=== PATIENT | male | born 1940 | race Caucasian/White ===

== ENCOUNTER 2018-10-11 22:01 | Inpatient (IN) ==
--- NOTE | 2018-10-11 22:25 | PROVIDER DOCUMENTATION ---
HPI-Respiratory General - General Stated Complaint: SOB Time Seen by Provider: 10/11/18 22:08 Source: patient, EMS Allergies/Adverse Reactions: Patient Allergies Allergy/AdvReac Type Severity Reaction Status Date / Time ibuprofen Allergy SWELLING Verified 01/21/16 12:35 Home Medications: Home Medication List Medication Instructions Recorded Confirmed Last Taken Type Acetaminophen [Tylenol] 650 mg PO Q6H PRN PRN tablet 11/24/17 Unknown Rx Albuterol 2.5MG/Ipratrop 0.5MG 3 ml INH RTQ4H PRN neb 11/24/17 Unknown Rx [Duoneb (A & A)] Benzonatate [Tessalon] 100 mg PO 0900,1500,2100 #15 cap 11/24/17 Unknown Rx Cephalexin [Keflex] 500 mg PO Q12H #12 cap 11/24/17 Unknown Rx Ergocalciferol (Vitamin D2) 50,000 unit PO Q7D #8 cap 11/24/17 Unknown Rx [Vitamin D] Fluticasone 50 Mcg Nasal [place] 2 spray NEAL BID bottle 11/24/17 Unknown Rx [Flonase] Folic Acid 1 mg PO DAILY tablet 11/24/17 Unknown Rx Furosemide [Lasix] 40 mg PO DAILY #90 tab 11/24/17 Unknown Rx Potassium Chloride E.r. [Klor-Con] 20 meq PO DAILY #60 tab 11/24/17 Unknown Rx Tamsulosin [Flomax] 0.4 mg PO DAILY #90 cap 11/24/17 Unknown Rx Review of Systems - Adult - REVIEW OF SYSTEMS - ADULT Constitutional: denies: fever Eyes: reports: no symptoms reported Ears, Nose, Mouth & Throat: reports: no symptoms reported Cardiovascular: denies: chest pain Respiratory: reports: cough, shortness of breath, wheezing Gastrointestinal: reports: no symptoms reported Genitourinary: reports: other (urinary and fecal incontinence for months) Neurological: denies: seizure Psychiatric: reports: no symptoms reported Endocrine: reports: no symptoms reported Hematologic/Lymphatic: reports: no symptoms reported Allergic/Immunologic: reports: no symptoms reported Past History - Adult - PAST MEDICAL HISTORY-ADULT Review of Records: reports: Nursing Assessment Review, Medications Reviewed Major Childhood Illnesses: reports: denies history Cardiovascular: reports: HTN (no meds) Respiratory: reports: denies history Gastrointestinal: reports: denies history Obstetrical/Gynecological: reports: denies history Genitourinary: reports: prostate cancer Musculoskeletal: reports: chronic pain (chronic knee pain) Neurological: reports: denies history Endocrine/Immune: reports: denies history Other Conditions: reports: denies history - PRIOR SURGERIES/PROCEDURES Surgical/Procedure History: reports: joint replacement (TKA), other (hip Sx) - IMMUNIZATION STATUS Childhood Immunizations: See Nurse Assessment Flu Vaccine: See Nurse Assessment - FAMILY HISTORY Family History: reviewed, not pertinent Physical Exam-General - PHYSICAL EXAM-ADULT Initial Vital Signs Reviewed: Yes - CONSTITUTIONAL General Appearance: moderate distress, other (unkempt, covered with urine and feces) - EYES Eyes: PERRL/EOMI - HEAD, EARS, NOSE, MOUTH & THROAT HENMT: normocephalic/atraumatic - NECK Neck: non-tender - RESPIRATORY Respiratory: chest non-tender, wheezing - CARDIOVASCULAR Cardiovascular: tachycardia - GASTROINTESTINAL (ABDOMEN) Abdominal Exam: non tender, soft - LYMPHATIC Lymphatic: no adenopathy - MUSCULOSKELETAL Back Exam: no CVA tenderness, no vertebral tenderness Extremity: other (venouse stasis) Peripheral Pulses: dorsalis-pedis (R): 0, dorsalis-pedis (L): 0 - SKIN Integumentary: pallor, other (dry and peeling skin) - NEUROLOGIC Neurologic: other (lower extremity weakenss) - PSYCHIATRIC Psych/Mental Status: normal mood/affect, oriented x 3 Progress - PLAN OF CARE/RESULTS Progress/Plan/Lab Results: Vital Signs - 8 hr 10/11/18 23:21 10/11/18 23:28 Temperature 97.0 F L 97.0 F L Pulse Rate 128 H Respiratory Rate 20 Blood Pressure 142/92 O2 Sat by Pulse Oximetry 95 Laboratory Results - last 24 hr 10/11/18 10/11/18 10/11/18 23:34 23:35 23:37 WBC RBC Hgb Hct MCV MCH MCHC RDW Std Deviation Plt Count MPV Immature Gran % (Auto) Neut % (Auto) Lymph % (Auto) Park % (Auto) Eos % (Auto) Baso % (Auto) Immature Gran # (Auto) Neut # (Auto) Lymph # (Auto) Park # (Auto) Eos # (Auto) Baso # (Auto) PT INR PTT (Actin FS) Specimen Type ARTERIAL Sample Site R RADIAL pH 7.38 pCO2 43 pO2 77 HCO3 24.8 Base Excess 0.0 Oxyhemoglobin 93.8 L ABG O2 Sat (Calculated) 19.4 ABG O2 Saturation 96.1 ABG Carboxyhemoglobin 1.50 ABG Methemoglobin 0.9 Parveen Test YES A-a O2 Difference 154.0 Total Hemoglobin 14.7 Lactate 2.90 H Liter Flow 5.0 Blood Gas Modality CANNULA FiO2 % 40.0 Sodium 144 Potassium 4.1 Chloride 99 Carbon Dioxide 25 Anion Gap 20 BUN 22 Creatinine 0.8 Estimated GFR/1.73 m2 > 60 BUN/Creatinine Ratio 28 Glucose 138 H Calculated Osmolality 292 Calcium 9.1 Total Bilirubin 0.60 AST 15 ALT 5 L Alkaline Phosphatase 72 Creatine Kinase Troponin T Total Protein 7.0 Albumin 2.9 L Globulin 4.0 Albumin/Globulin Ratio 1.0 Plasma Lactate Urine Source CATH Urine Color RED Urine Clarity VERY CLOUDY A Urine pH 9.0 Ur Specific [place] 1.010 Urine Protein 2+(100 mg/dL) A Urine Ketones 1+(Small) A Urine Blood 4+ Urine Nitrite NEGATIVE Urine Bilirubin NEGATIVE Urine Urobilinogen NORMAL Urine Microscopic RBC TNTC A Urine WBC 2+ A Urine Microscopic WBC 10-20 A Urine Bacteria 3+ Urine Glucose NEGATIVE 10/11/18 10/11/18 10/11/18 23:37 23:37 23:37 WBC 14.80 H RBC 5.38 Hgb 14.6 Hct 46.3 MCV 86.1 MCH 27.1 MCHC 31.5 L RDW Std Deviation 15.0 H Plt Count 178 MPV 8.4 Immature Gran % (Auto) 0.8 H Neut % (Auto) 83.5 H Lymph % (Auto) 8.0 L Park % (Auto) 7.4 Eos % (Auto) 0.1 Baso % (Auto) 0.2 Immature Gran # (Auto) 0.12 H Neut # (Auto) 12.36 H Lymph # (Auto) 1.19 L Park # (Auto) 1.09 H Eos # (Auto) 0.01 Baso # (Auto) 0.03 PT 12.7 INR 0.91 PTT (Actin FS) 27.0 Specimen Type Sample Site pH pCO2 pO2 HCO3 Base Excess Oxyhemoglobin ABG O2 Sat (Calculated) ABG O2 Saturation ABG Carboxyhemoglobin ABG Methemoglobin Parveen Test A-a O2 Difference Total Hemoglobin Lactate Liter Flow Blood Gas Modality FiO2 % Sodium Potassium Chloride Carbon Dioxide Anion Gap BUN Creatinine Estimated GFR/1.73 m2 BUN/Creatinine Ratio Glucose Calculated Osmolality Calcium Total Bilirubin AST ALT Alkaline Phosphatase Creatine Kinase 27 Troponin T Total Protein Albumin Globulin Albumin/Globulin Ratio Plasma Lactate Urine Source Urine Color Urine Clarity Urine pH Ur Specific Baldwin Urine Protein Urine Ketones Urine Blood Urine Nitrite Urine Bilirubin Urine Urobilinogen Urine Microscopic RBC Urine WBC Urine Microscopic WBC Urine Bacteria Urine Glucose 10/11/18 10/11/18 23:37 23:37 WBC RBC Hgb Hct MCV MCH MCHC RDW Std Deviation Plt Count MPV Immature Gran % (Auto) Neut % (Auto) Lymph % (Auto) Park % (Auto) Eos % (Auto) Baso % (Auto) Immature Gran # (Auto) Neut # (Auto) Lymph # (Auto) Park # (Auto) Eos # (Auto) Baso # (Auto) PT INR PTT (Actin FS) Specimen Type Sample Site pH pCO2 pO2 HCO3 Base Excess Oxyhemoglobin ABG O2 Sat (Calculated) ABG O2 Saturation ABG Carboxyhemoglobin ABG Methemoglobin Parveen Test A-a O2 Difference Total Hemoglobin Lactate Liter Flow Blood Gas Modality FiO2 % Sodium Potassium Chloride Carbon Dioxide Anion Gap BUN Creatinine Estimated GFR/1.73 m2 BUN/Creatinine Ratio Glucose Calculated Osmolality Calcium Total Bilirubin AST ALT Alkaline Phosphatase Creatine Kinase Troponin T < 0.010 Total Protein Albumin Globulin Albumin/Globulin Ratio Plasma Lactate 4.1 H Urine Source Urine Color Urine Clarity Urine pH Ur Specific [place] Urine Protein Urine Ketones Urine Blood Urine Nitrite Urine Bilirubin Urine Urobilinogen Urine Microscopic RBC Urine WBC Urine Microscopic WBC Urine Bacteria Urine Glucose Orders Category Date Time Status Cardiac Monitoring DIRECTED Care 10/11/18 22:48 Active IV Insertion ORDERED Care 10/11/18 22:48 Completed Notify MD of + Sepsis Screen NOW Care 10/11/18 22:48 Active Notify Physician As Ordered Care 10/11/18 22:48 Active Saline Loc NOW Care 10/11/18 22:19 Active CHEST-PORTABLE [RAD] Stat Exams 10/11/18 22:19 Taken ABG [RESP] Routine Lab 10/11/18 23:34 Completed BLOOD CULTURE [BLDCUL] Stat Lab 10/11/18 22:19 Ordered BLOOD CULTURE [BLDCUL] Stat Lab 10/11/18 23:38 Ordered CBC WITH DIFF [HEME] Stat Lab 10/11/18 23:37 Completed CK PROFILE [SP CHEM] Stat Lab 10/11/18 23:37 Completed CK PROFILE [SP CHEM] Stat Lab 10/12/18 00:20 Ordered COMPREHENSIVE METABOLIC PANEL [CHEM] Stat Lab 10/11/18 23:37 Completed LACTATE, PLASMA [CHEM] Q3H Lab 10/11/18 23:37 Received PROTIME WITH INR [COAG] Stat Lab 10/11/18 23:37 Received PTT [COAG] Stat Lab 10/11/18 23:37 Received TROPONIN T Stat Lab 10/11/18 23:[address] W/POSS RFLX CULT [URINALYSIS] Stat Lab 10/11/18 23:35 Results 0.9% Sodium Chloride Inj [Ns] 1,000 ml Med 10/11/18 23:39 Active IV 999 mls/hr 0.9% Sodium Chloride Inj [Ns] 1,000 ml Med 10/12/18 00:22 Active IV 999 mls/hr 0.9% Sodium Chloride Inj [Ns] 500 ml Med 10/12/18 00:23 Active IV 999 mls/hr CefTRIAXONE [Rocephin] Med 10/12/18 00:08 Discontinued 1 gm IV NOW ONE Oxygen Device Stat Oth 10/11/18 22:48 Active Pulse Oximetry Stat Oth 10/11/18 22:19 Active Result Diagrams: 10/11/18 23:37 10/11/18 23:37 - CONSULTS/PCP/HOSPITALIST Notification #1 *Consult/PCP/Hospitalist*: Dr Clayton Time Discussed: 00:33 Consult Disposition: Admit Departure - Departure Date of Disposition Decision: 10/12/18 Time of Disposition Decision: 00:31 DIAGNOSIS: Dyspnea, Asthmatic bronchitis Disposition: ADMITTED INPATIENT 09 Certified Medical Emergency: Emergent Condition: Good Referrals and Follow-Ups: None,PCP [Primary Care Provider] - - Critical Care Note This patient required my direct & personal management of CC.: No Attestation - Physician/ PAULETTE Attestation Patient care was provided by Advanced Practice Provider:: No The physician spent face to face time with patient:: Yes Advanced Practice Provider documentation review:: Supervising physician onsite and consulted in the evaluation and care of this patient. The physician did have a face to face encounter with the patient.
[2018-10-11 23:46] LABS: BLOOD TYPE ARTERIAL; HCO3-(ACT) 24.8 mmoll (20.0-26.0); METHB 0.9 % (0.0-1.5); O2(CT) 19.4 mL/dL (15.0-23.0); O2HB 93.8 % (95.0-99.0); PCO2(98.6) 43 mmHg (35-45); PO2(98.6) 77 mmHg (60-100); SAMPLE BLOOD; SAO2 96.1 % (95.0-100.0); THB 14.7 g/dL (11.5-17.4); pH(98.6) 7.38 (7.35-7.45)
[2018-10-11 23:48] LABS: ALLEN TEST YES; MODALITY CANNULA
[2018-10-12] LABS: BASO# 0.03 X1000 (0.0-0.2); BASO% 0.2 % (0.0-0.8); EOS# 0.01 X1000 (0.0-0.7); EOS% 0.1 % (0.0-10.0); HEMATOCRIT 46.3 % (42.0-52.0); HEMOGLOBIN 14.6 g/dL (14.0-18.0); IMM GRAN# 0.12 X1000 (0.0-0.04); IMM GRAN% 0.8 % (0.0-0.5); LYMPH# 1.19 X1000 (1.2-3.4); MCH 27.1 PG (27-31); MCHC 31.5 g/dL (33-37); MCV 86.1 FL (81-99); MONO# 1.09 X1000 (0.11-0.59); MONO% 7.4 % (1.7-9.3); MPV 8.4 FL (7.4-10.4); NEUT# 12.36 X1000 (1.4-6.5); NEUT% 83.5 % (42.2-75.2); PLT 178 X1000 (130-400); RBC 5.38 XMIL (4.7-6.1)
[2018-10-12 00:06] LABS: AGAP 20; ALBUMIN 2.9 g/dL (3.5-5.0); ALKALINE PHOSPHATASE 72 U/L (32-122); BUN 22 mg/dL (8-22); CALCIUM 9.1 mg/dL (8.8-10.2); CHLORIDE 99 mmol/L (98-107); COSMO 292; CREATININE 0.8 mg/dL (0.7-1.2); ESTIMATED GFR > 60; GLUCOSE 138 mg/dL (70-104); GOT 15 U/L (10-34); GPT 5 U/L (10-44); POTASSIUM 4.1 mmol/L (3.5-5.1); SODIUM 144 mmol/L (136-145); TCO2 25 mmol/L (25-35)
[2018-10-12] MEDS ORDERED: ROCEPHIN IV ONE (00:08)
[2018-10-12] MEDS: NS 1,000 ML IV ONE (00:10)
[2018-10-12 00:12] LABS: BILIRUBIN URINE NEGATIVE (NEGATIVE); BLOOD URINE 4+ (NEGATIVE); CLARITY VERY CLOUDY (CLEAR); COLOR RED; GLUCOSE URINE NEGATIVE (NEGATIVE); KETONE URINE 1+(Small) mg/dL (NEGATIVE); LEUKOCYTES URINE 2+ (NEGATIVE); NITRITE URINE NEGATIVE (NEGATIVE); PROTEIN URINE 2+(100 mg/dL) mg/dL (NEGATIVE); UROBILINOGEN URINE NORMAL
[2018-10-12 00:16] LABS: URINE BACTERIA 3+ /HFP; URINE RBC TNTC /HPF (<10)
[2018-10-12 00:17] LABS: URINE SOURCE CATH
[2018-10-12] MEDS ORDERED: NS 1,000 ML IV ONE (00:22)
[2018-10-12] MEDS ORDERED: NS 500 ML IV ONE (00:23)
[2018-10-12 00:34] LABS: INR 0.91; PROTIME 12.7 Seconds (11.0-16.0)
[2018-10-12] MEDS ORDERED: SOLU-MEDROL IV ONE (00:43)
--- NOTE | 2018-10-12 00:49 | ED EKG INTERP ---
This chart was entered by Olga Lomax Scribe, acting as scribe for Gardenia Dias MD. EKG Interpretation - EKG Time of EKG reading by physician:: 00:40 EKG Read and Signed by:: Gardenia Dias EKG Interpretation (*Must complete 3 of following elements*): Abnormal ( pulmonary disease pattern) Rate: 110 Rhythm: sinus tachycardia [place]: normal Attestation - Physician/ PAULETTE Attestation Patient care was provided by Advanced Practice Provider:: No The physician spent face to face time with patient:: Yes Advanced Practice Provider documentation review:: Supervising physician onsite and consulted in the evaluation and care of this patient. The physician did have a face to face encounter with the patient. This chart was documented by the indicated scribe, (Olga Lomax Scribe) and accurately reflects the services I performed and decisions made by me, Gadrenia Dias MD, as attested by the provider's signature.
[2018-10-12] MEDS ORDERED: NS 50 ML ONE (01:04)
[2018-10-12] MEDS: DUONEB (A & A) INH SCH ×7 (02:38→23:45)
[2018-10-12] MEDS ORDERED: NS 500 ML ONE ×2 (02:51→14:58)
[2018-10-12] MEDS ORDERED: ZOFRAN ONE (02:56)
[2018-10-12] MEDS ORDERED: MORPHINE ONE (02:56)
[2018-10-12] MEDS: MORPHINE IV PRN ×2 (02:57→17:35)
[2018-10-12] MEDS: ZOFRAN IV PRN (02:58)
--- NOTE | 2018-10-12 04:08 | EKG Report ---
Test Performed on : 10/12/2018 00:40:52 AM Test Reason : shortness of breath Blood Pressure : / mmHG Vent. Rate : 110 BPM Atrial Rate : 110 BPM P-R Int : 142 ms QRS Dur : 084 ms QT Int : 352 ms P-R-T Axes : 107 -24 055 degrees QTc Int : 476 ms Sinus tachycardia. Pulmonary disease pattern Abnormal ECG When compared with ECG of 18-NOV-2017 06:46, Incomplete right bundle branch block is no longer present Unconfirmed Result
--- NOTE | 2018-10-12 10:08 | Diag Imaging Result Doc PS360 ---
EXAM: CHEST-PORTABLE - 10/11/2018 HISTORY: cough TECHNIQUE: Portable chest COMPARISON: 11/23/2017 FINDINGS: There is chronic elevation of left hemidiaphragm, similar to prior. There is mild atelectasis or infiltrate at left base. The remainder the lungs appear clear. There is no pleural effusion or pneumothorax identified. The left heart border is partially obscured by the elevated hemidiaphragm, heart size appears to be normal. There is apparent old fracture deformity of the proximal left humerus noted. IMPRESSION: Chronic elevation of left hemidiaphragm. Mild atelectasis or infiltrate at left base. Electronically signed by Rick Louis 10/12/2018 10:06 AM
--- NOTE | 2018-10-12 12:19 | HISTORY AND PHYSICAL ---
TIME OF ADMISSION: 0033. CHIEF COMPLAINT: Shortness of breath. HISTORY OF PRESENT ILLNESS: Mr. Vizcaino is an unkempt, 78-year-old, male who was brought into the ED, covered an urine and feces. Prostate cancer, status post radiation in 2008, BPH, hypertension, iron deficiency anemia, seasonal allergies, morbid obesity, urinary tract infections in the past. He states over the last few days, he has had an increase in shortness of breath, a productive cough with sputum production. However, he could not describe it. He also reported his urine had been a red color and it is usually red when he has a urinary tract infection. He also notes that he has had chronic swelling to his lower extremities. He was unsure if the right was always bigger than the left. In the ED, he was found to have a urinary tract infection. He was tachycardic but afebrile. He did have some expiratory wheezes. Chest x- ray shows a possible left lower lobe pneumonia. He did have an elevated white count, as well as an elevated lactate. He was given 3 normal saline boluses. Started on IV antibiotics. We will broaden his spectrum. His lactate has come down. We will admit him to the [facility] and continue with IV antibiotics. PAST MEDICAL HISTORY: 1. Prostate cancer, status post radiation in 2008. 2. BPH. 3. Hypertension. 4. Iron deficiency anemia. 5. Seasonal allergies. 6. Morbid obesity. 7. Chronic bilateral lower extremity edema. PAST SURGICAL HISTORY: 1. Left hip fracture repair in 2013. 2. Right knee replacement. 3. Left shoulder surgery. 4. Left elbow surgery. SOCIAL HISTORY: The patient lives in [place] with his son and knibppwn-sm-epu. There is no family at bedside at this time. The patient states he may have a beer ever once in a blue adame. He is a former smoker, but did not smoke for very long. He states that he does have a cigarette, one on a very rare occasion. No illicit drug use. FAMILY HISTORY: Mother with hypertension, hypertensive heart disease. Father with hypertension, heart disease, and kidney disease. ALLERGIES: Ibuprofen. HOME MEDICATIONS: He reports he only takes an aspirin at home. REVIEW OF SYSTEMS: A 14-point review of systems completely negative except for those mentioned in the HPI. PHYSICAL EXAMINATION: VITAL SIGNS: Current temperature is 97.8 degrees, heart rate 97, respirations 18, blood pressure 119/68, O2 is 98% on 4 L nasal cannula. GENERAL: Mr. Vizcaino is an unkempt appearing, 78-year-old, male who is lying on the stretcher and in no acute distress. He was asleep. He awoke easily. HEENT: Atraumatic, normocephalic. PERRL. NECK: Supple. Trachea midline. CV: S1, S2 appreciated. No murmurs, rubs, or gallops noted. PULMONARY: The patient does have bilateral expiratory wheezes. ABDOMEN: Soft, nontender, nondistended. Positive bowel sounds in 4 quadrants. EXTREMITIES: No clubbing or cyanosis. He does have bilateral lower extremity edema that is greater on the right than the left. However, this appears to be normal for him. He does have discoloration. NEUROLOGIC: Patient is alert and oriented x4. However, it does take him a prolonged period of time before he answers. He does follow commands. Moves all extremities. DIAGNOSTIC DATA: Chest x-ray shows chronic elevation of left hemidiaphragm, mild atelectasis or infiltrate at the left base. EKG showed sinus tachycardia with a pulmonary disease pattern. Blood cultures and urine culture pending. White count 14, hemoglobin and hematocrit 14 and 46, platelet count 178,000. Sodium 144, potassium 4.1, BUN 22, creatinine 0.8. Blood glucose is 138, albumin 2.9. Initial plasma lactate was 4.1. Followup 2.8. This a.m., 1.4. Urine, 3+ bacteria, too numerous to count WBCs, too numerous to count RBCs. ASSESSMENT AND PLAN: 1. Probable left lower lobe pneumonia with asthma exacerbation. We will continue with intravenous antibiotics. Given his elevated lactate, we will broaden his antibiotics. Continue with intravenous hydration. He was given three 3 L boluses in the emergency department. His lactate has come down. He continues to be afebrile. However, he complains of chills. We will continue the bronchodilators and aggressive pulmonary toilet. 2. Probable sepsis. The patient upon admission was tachycardic, elevated white count, positive lactate. Again, we will continue with broad-spectrum antibiotics. 3. Urinary tract infection. Continue intravenous antibiotics. Await culture. 4. Gross hematuria. The patient states his urine turns red with urinary tract infections. We will continue to monitor to see if this clears. 5. Bilateral lower extremity edema with discoloration, right greater than left. This appears to be chronic in nature. 6. Prostate cancer, status post radiation in 2008, with benign prostatic hypertrophy. 7. Iron deficiency anemia. 8. Morbid obesity. 9. Hypertension. Patient does not take any home medications. We will continue to follow. 10. Further recommendations to follow physician evaluation, laboratory data, and diagnostic data. Dictated by RIZWANA Armas for Chauncey Melendez MD cc: Chauncey Melendez MD
[2018-10-12] MEDS ORDERED: VANCOMYCIN IV PER PHARMACY MISC SCH (12:39)
[2018-10-12] MEDS ORDERED: DUONEB (A & A) INH PRN (12:39)
[2018-10-12] MEDS ORDERED: TYLENOL PO PRN (12:39)
[2018-10-12] MEDS ORDERED: SALINE LOCK IV FLUID XX ONE (12:39)
[2018-10-12] MEDS: VANCOMYCIN 2,000 MG in NS 500 ML IV SCH ×2 (15:03→17:35)
[2018-10-12] MEDS: SOLU-MEDROL IV SCH ×2 (15:04→17:35)
[2018-10-12] MEDS ORDERED: CARDIZEM 125/NS 125 MG/125 ML IVPB IV SCH (18:30)
[2018-10-12 20:22] LABS: HEMOGLOBIN 10.9 g/dL (14.0-18.0); MCH 26.9 PG (27-31); MCHC 31.1 g/dL (33-37); MCV 86.4 FL (81-99); MPV 8.5 FL (7.4-10.4); RBC 4.05 XMIL (4.7-6.1); RDW 14.9 % (11.5-14.5); WBC 13.17 X1000 (4.8-10.8)
[2018-10-12 20:42] LABS: AGAP 11; ALBUMIN 2.1 g/dL (3.5-5.0); ALKALINE PHOSPHATASE 61 U/L (32-122); BUN 26 mg/dL (8-22); CALCIUM 8.3 mg/dL (8.8-10.2); CHLORIDE 101 mmol/L (98-107); CK PROFILE 106 U/L (24-204); COSMO 287; CREATININE 0.8 mg/dL (0.7-1.2); ESTIMATED GFR > 60; GLUCOSE 254 mg/dL (70-104); GOT 12 U/L (10-34); GPT < 5 U/L (10-44); MAGNESIUM 1.5 mg/dL (1.5-2.7); POTASSIUM 3.7 mmol/L (3.5-5.1); SODIUM 137 mmol/L (136-145); TCO2 25 mmol/L (25-35); TOTAL PROTEIN 5.6 g/dL (6.3-8.3)
[2018-10-12] MEDS: ZOSYN 3.375 GM in NS 50 ML IV SCH (20:56)
--- NOTE | 2018-10-12 21:42 | HISTORY AND PHYSICAL ---
ADDENDUM: Patient seen and examined by myself. Full note dictated and discussed with nurse practitioner. The patient presented to the hospital with cough, congestion and shortness of breath. He was subsequently diagnosed with left lower lobe pneumonia. While he was in the hospital, he was noted to have heart rates go in the 130s to 160s and was diagnosed with atrial fibrillation RVR as well. We will admit him to the hospital, actually transfer him to the ICU. Place him on Cardizem drip. Continue antibiotics. Further orders as needed. Please see full dictation. cc: Chauncey Melendez MD
[2018-10-12] MEDS: NS 1,000 ML IV SCH (21:47)
[2018-10-13] MEDS: ZOSYN 3.375 GM in NS 50 ML IV SCH ×4 (01:36→20:52)
[2018-10-13] MEDS: SOLU-MEDROL IV SCH ×3 (01:36→17:56)
[2018-10-13] MEDS: DUONEB (A & A) INH SCH ×4 (04:02→15:15)
[2018-10-13 04:07] LABS: BASO# 0.01 X1000 (0.0-0.2); BASO% 0.1 % (0.0-0.8); HEMATOCRIT 34.4 % (42.0-52.0); HEMOGLOBIN 10.8 g/dL (14.0-18.0); IMM GRAN# 0.03 X1000 (0.0-0.04); IMM GRAN% 0.3 % (0.0-0.5); LYMPH# 0.69 X1000 (1.2-3.4); LYMPH% 6.1 % (20.5-51.1); MCH 27.1 PG (27-31); MCHC 31.4 g/dL (33-37); MCV 86.4 FL (81-99); MONO# 0.33 X1000 (0.11-0.59); MONO% 2.9 % (1.7-9.3); MPV 8.8 FL (7.4-10.4); NEUT# 10.27 X1000 (1.4-6.5); NEUT% 90.6 % (42.2-75.2); PLT 125 X1000 (130-400); RBC 3.98 XMIL (4.7-6.1); RDW 14.9 % (11.5-14.5); WBC 11.33 X1000 (4.8-10.8)
[2018-10-13 04:31] LABS: AGAP 12; BUN 29 mg/dL (8-22); CALCIUM 7.9 mg/dL (8.8-10.2); CHLORIDE 104 mmol/L (98-107); COSMO 294; CREATININE 0.8 mg/dL (0.7-1.2); ESTIMATED GFR > 60; GLUCOSE 214 mg/dL (70-104); POTASSIUM 4.1 mmol/L (3.5-5.1); SODIUM 141 mmol/L (136-145); TCO2 25 mmol/L (25-35)
[2018-10-13 04:33] LABS: BANDS 2 % (0-1); LYMPHS 6 % (21-51); SEGS 92 % (42-75)
[2018-10-13 04:35] LABS: OVALOCYTES OCCASIONAL
[2018-10-13] MEDS: NS 1,000 ML IV SCH ×2 (04:52→14:42)
[2018-10-13] MEDS: MORPHINE IV PRN (05:04)
[2018-10-13] MEDS ORDERED: LANOXIN IV ONE (06:50)
[2018-10-13] MEDS: PROTONIX PO SCH (06:58)
--- NOTE | 2018-10-13 07:28 | Diag Imaging Result Doc PS360 ---
EXAM: CHEST-PORTABLE - 10/13/2018 HISTORY: short of breath TECHNIQUE: Portable chest COMPARISON: 08/10/2019 FINDINGS: There is increased opacity at the left base compared to prior. This is suspicious for infiltrate/pneumonia. There is chronic elevation of the left hemidiaphragm. There are no other interval changes identified. IMPRESSION: Increased opacity at left base suspicious for infiltrate/pneumonia. Electronically signed by Rick Louis 10/13/2018 7:25 AM
--- NOTE | 2018-10-13 10:02 | EKG Report ---
Test Performed on : 10/12/2018 4:39:50 PM Test Reason : rhythm change Blood Pressure : / mmHG Vent. Rate : 100 BPM Atrial Rate : 091 BPM P-R Int : 000 ms QRS Dur : 086 ms QT Int : 362 ms P-R-T Axes : 000 -07 026 degrees QTc Int : 466 ms Marked sinus bradycardia. Low voltage QRS Inferior infarct , age undetermined Abnormal ECG When compared with ECG of 12-OCT-2018 16:07, (Unconfirmed) Junctional rhythm. has replaced Atrial fibrillation. Vent. rate has decreased BY [address] no longer depressed in Anterior leads Nonspecific T wave abnormality no longer evident in Lateral leads Confirmed by Pj Chavez MD ([id number]) on 10/22/2018 7:57:40 AM
--- NOTE | 2018-10-13 10:03 | EKG Report ---
Test Performed on : 10/12/2018 4:07:13 PM Test Reason : HR tachy Blood Pressure : / mmHG Vent. Rate : 160 BPM Atrial Rate : 150 BPM P-R Int : 000 ms QRS Dur : 084 ms QT Int : 300 ms P-R-T Axes : 000 -17 045 degrees QTc Int : 489 ms Atrial fibrillation. with rapid ventricular response. Low voltage QRS Nonspecific ST and T wave abnormality Abnormal ECG When compared with ECG of 12-OCT-2018 00:40, (Unconfirmed) Atrial fibrillation. has replaced Sinus rhythm. Confirmed by Pj Chavez MD ([id number]) on 10/22/2018 7:58:03 AM
[2018-10-13] MEDS: LOPRESSOR IV PRN ×2 (11:36→17:15)
[2018-10-13] MEDS: VANCOMYCIN 2,000 MG in NS 500 ML IV SCH (11:36)
[2018-10-13] MEDS: B & O 15A SUPP PR PRN (14:41)
[2018-10-13] MEDS: FLOMAX PO SCH ×2 (14:41→20:52)
--- NOTE | 2018-10-13 17:10 | CARDIOLOGY CONSULTATION ---
DATE: 10/13/2018 INDICATION FOR THE CONSULTATION: New onset atrial fibrillation CHIEF COMPLAINT ON PRESENTATION: Shortness of breath. HISTORY OF PRESENT ILLNESS: Mr. Vizcaino is a 78-year-old gentleman who recently moved to the area from [place], [place]. He has not established with a primary care physician. He is an extremely poor historian. Apparently he has been dealing with some issues of shortness of breath and cough. He does not know of any fevers, nor does he have any issues was significant heart racing, chest pain, or orthopnea. During the course of his hospitalization he was noted to go into presumably new onset atrial fibrillation. He was transferred to the ICU for further treatment with IV rate-controlling medications. PAST MEDICAL HISTORY: Unknown. MEDICATIONS: He is not on any medications. SOCIAL HISTORY: He recently moved to the area. Previous resident of [place], [place]. 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 FAMILY HISTORY: Significant for hypertension. REVIEW OF SYSTEMS: A 10 system review of systems is negative except for those things mentioned in HPI. PHYSICAL EXAMINATION: Vital signs: He is afebrile. His heart rate currently is in the low 100s to 110s, blood pressure 114/64. General: He is an ill-appearing, somewhat disheveled white male, no acute distress. HEENT: Oropharynx is moist. Poor dentition. Eye examination shows pink conjunctivae, white sclerae. Neck: Examination shows no obvious thyromegaly or thyroid tenderness. Cardiovascular: He sounds to be in an irregularly irregular rhythm. He has no murmurs. He has no S3. He has warm and well-perfused lower extremities. Chest: Has coarse breath sounds somewhat diffusely. Mild rales in the left base. No increased work of breathing. Abdomen: Soft, nontender, nondistended. He has no obvious organomegaly. Skin: Warm and dry throughout without any rashes. Neurological: He is moving all extremities well. He has no lateralizing deficits. PERTINENT DATA: His chest x-ray demonstrates an increased opacity at the left base suspicious for an infiltrate. His EKG on the just after midnight shows sinus tachycardia. His subsequent EKG on the at 1607 shows what appears to be rapid atrial fibrillation, rate of 160 beats per minute. His subsequent EKG occurring at 1639 seems to show a possible sinus rhythm. It is somewhat difficult to identify P-waves. Currently his telemetry shows atrial fibrillation. His white count 11.3. His hematocrit is 34. His platelet count is 125,000. He does have a slight bandemia. His sodium is 141, potassium 4.1, BUN 29, creatinine 0.8. His cardiac enzymes are negative. His albumin is 2.1. ASSESSMENT: Mr. Vizcaino is a 78-year-old gentleman with new onset atrial fibrillation that initiated during an episode of pneumonia. PLAN: We will add in metoprolol at 12.5 q.6 hours. We will try to wean him off the diltiazem. He has a CHADS-VASc score of at least 2 based on age alone. In the future he would likely benefit from anticoagulation. He is a very poor historian so I am unclear about his fall risk, that certainly needs to be assessed. We will check an echocardiogram on him tomorrow to try to achieve better rate control. cc: Partha Turner MD
[2018-10-13] MEDS ORDERED: CALMOSEPTINE OINTMENT TOP PRN (17:26)
[2018-10-13] MEDS ORDERED: LOPRESSOR PO ONE (18:13)
[2018-10-13] MEDS ORDERED: NEO-SYNEPHRINE IV ONE (18:45)
[2018-10-13] MEDS ORDERED: NEO-SYNEPHRINE 50 MG in NS 250 ML IV SCH (19:00)
[2018-10-13] MEDS ORDERED: LOPRESSOR PO SCH (20:00)
[2018-10-13] MEDS: LOPRESSOR PO SCH (22:03)
[2018-10-13] MEDS: ATROVENT NEB INH SCH (22:35)
[2018-10-13] MEDS: XOPENEX NEB INH SCH (22:35)
[2018-10-14] MEDS: SOLU-MEDROL IV SCH ×3 (01:08→18:03)
--- NOTE | 2018-10-14 01:08 | PROGRESS NOTE ---
DATE: 10/13/2018 SUBJECTIVE: Patient himself has no complaints. PHYSICAL EXAMINATION: Vital Signs: Temperature 98 degrees, pulse 100s to 150s, BP 70 systolic to 90 systolic. HEENT: Normocephalic. Neck: Supple. Cardiovascular: Irregular rate. Irregular rhythm. Chest: Decreased but equal breath sounds. No wheezing. Abdomen: Soft, nondistended. Extremities: Moves all extremities. ASSESSMENT: 1. Atrial fibrillation with rapid ventricular response. 2. Probable left lower lobe pneumonia. 3. Asthma/chronic obstructive pulmonary disease exacerbation. 4. Urinary tract infection. 5. Sepsis. 6. Severe hypotension. PLAN: We will continue patient in ICU. Continue pressure support, IV fluids. We will use Toprol per Cardiology p.r.n. for his tachycardia and continue to follow. cc: Chauncey Melendez MD
[2018-10-14] MEDS: LOPRESSOR PO SCH ×4 (01:09→20:45)
[2018-10-14] MEDS: NS 1,000 ML IV SCH ×2 (01:36→15:00)
[2018-10-14] MEDS: ZOSYN 3.375 GM in NS 50 ML IV SCH ×4 (01:36→20:45)
[2018-10-14] MEDS: MORPHINE IV PRN ×2 (02:10→05:48)
[2018-10-14] MEDS: XOPENEX NEB INH SCH ×5 (03:30→22:05)
[2018-10-14] MEDS: ATROVENT NEB INH SCH ×5 (03:30→22:04)
[2018-10-14] MEDS: VANCOMYCIN 2,000 MG in NS 500 ML IV SCH (04:58)
[2018-10-14] MEDS: B & O 15A SUPP PR PRN (05:19)
[2018-10-14] MEDS: PROTONIX PO SCH (07:10)
[2018-10-14] MEDS: FLOMAX PO SCH ×2 (09:27→20:45)
[2018-10-14] MEDS: LOPRESSOR IV PRN (14:59)
[2018-10-14] MEDS ORDERED: LOPRESSOR PO ONE (18:44)
[2018-10-15] MEDS: NS 1,000 ML IV SCH ×2 (00:52→14:25)
--- NOTE | 2018-10-15 01:29 | PROGRESS NOTE ---
DATE: 10/14/2018 SUBJECTIVE: Patient notes overall he is feeling better. Denies any chest pain or palpitations. Denies any fevers or chills. PHYSICAL EXAMINATION: Vital Signs: Temperature 97.9 degrees, pulse 120, respiratory 22, BP 121/81. General: He is eating breakfast with assistance. He is in no current respiratory distress. HEENT: Normocephalic. Neck: Supple. Cardiovascular: Irregular rate. Irregular rhythm. Poor rate control. Chest: Positive rhonchi. No crackles. No wheezing. Abdomen: Soft, nondistended. Extremities: Moves all extremities. No edema. Neurologic: No focal neurological changes. Skin: He has multiple healing bruises of various staging. ASSESSMENT: 1. Atrial fibrillation. 2. Hypotension. 3. Sepsis. 4. Gram-negative chris urinary tract infection causing the sepsis. 5. Bilateral lower extremity edema. 6. History of prostate cancer with radiation in 2008. 7. Iron deficiency anemia. 8. Morbid obesity. 9. Hypertension. PLAN: We will continue patient in the hospital ICU due to his hypotension and elevated heart rate. Cardiology thankfully has been involved. We will continue to follow. We will place the patient on metoprolol, hopefully can wean off of Levophed. Continue antibiotics. Continue supportive care. Greater than 35 minutes was spent in total care. cc: Chauncey Melendez MD
[2018-10-15] MEDS: VANCOMYCIN 2,000 MG in NS 500 ML IV SCH (02:33)
[2018-10-15] MEDS: ZOSYN 3.375 GM in NS 50 ML IV SCH ×4 (02:41→19:45)
[2018-10-15] MEDS: SOLU-MEDROL IV SCH ×3 (02:41→19:45)
[2018-10-15] MEDS: LOPRESSOR PO SCH ×4 (02:42→19:45)
[2018-10-15] MEDS: ATROVENT NEB INH SCH ×4 (03:14→21:39)
[2018-10-15] MEDS: XOPENEX NEB INH SCH ×4 (03:14→21:39)
[2018-10-15] MEDS: PROTONIX PO SCH (06:32)
[2018-10-15] MEDS ORDERED: VANCOMYCIN 2,000 MG in NS 500 ML IV SCH (09:00)
[2018-10-15] MEDS: FLOMAX PO SCH ×3 (09:22→20:40)
[2018-10-15] MEDS: LOPRESSOR IV PRN (17:00)
--- NOTE | 2018-10-15 19:08 | PROGRESS NOTE ---
DATE: 10/15/2018 SUBJECTIVE: Patient notes that he is feeling better. States that he is hungry. States that his hamburger and fries were not enough yesterday for lunch and he would like to have more today. Denies any chest pain, palpitations. Denies any fevers. PHYSICAL EXAM: Vital Signs: Temperature 98, pulse 110, respiratory 20, BP 111/73. General: Patient is awake, alert. He is currently in no respiratory distress. He does answer questions. He attempts to follow commands. HEENT: Normocephalic. Neck: Supple. Cardiovascular: Irregular rate, irregular rhythm. Chest: Decreased breath sounds bilaterally. No current crackles, no wheezing. Abdomen: Soft, nondistended. Extremities: Moves all extremities. Neurologic: No changes. ASSESSMENT: 1. Staph epi bacteremia, resists penicillin. Sensitive to Levaquin and clindamycin. 2. Left lower lobe pneumonia. 3. Asthma exacerbation. 4. Generalized adult failure to thrive. 5. Bilateral lower extremity edema. 6. Multiple bruising. 7. History of prostate cancer, status post radiation 2009. PLAN: We will continue patient in the hospital, continue antibiotics. We will stop vancomycin at this point as the Staph epi is sensitive to Zosyn. We will continue nutritional support and will follow. cc: Chauncey Melendez MD
[2018-10-15] MEDS: LEVAQUIN 500 MG/D5W 500 MG/100 ML IVPB IV SCH (19:45)
[2018-10-16] MEDS: MORPHINE IV PRN ×2 (01:16→12:46)
[2018-10-16] MEDS: SOLU-MEDROL IV SCH ×2 (01:16→08:07)
[2018-10-16] MEDS: NS 1,000 ML IV SCH ×3 (01:19→15:30)
[2018-10-16] MEDS: ZOSYN 3.375 GM in NS 50 ML IV SCH ×4 (01:20→20:52)
[2018-10-16] MEDS: ATROVENT NEB INH SCH ×4 (03:15→21:13)
[2018-10-16] MEDS: XOPENEX NEB INH SCH ×4 (03:16→21:13)
[2018-10-16] MEDS: LOPRESSOR PO SCH ×4 (05:10→20:52)
[2018-10-16] MEDS: PROTONIX PO SCH (06:15)
[2018-10-16] MEDS: FLOMAX PO SCH ×2 (08:07→20:51)
[2018-10-16] MEDS: HUMALOG (PARKWAY) SUBQ SCH ×3 (10:45→20:52)
--- NOTE | 2018-10-16 11:06 | ECHO REPORT ---
ORDER DATE: 10/14/2018 ECHOCARDIOGRAM: MEASUREMENTS: None. SUMMARY: 1. Very difficult study for interpretation due to very limited acoustic window quality. 2. Aortic valve is without gross structural abnormality. Peak gradient across the aortic valve was less than 10 mmHg, thus excluding significant aortic stenosis. Moderate mitral annular calcification is demonstrated. Tricuspid valve is without gross structural abnormality. There is trace mitral regurgitation and trace tricuspid regurgitation. The estimated systolic PA pressure by Doppler is 35 mmHg. Pulmonic valve is not well demonstrated. The aortic root is grossly normal in size. 3. Grossly normal left ventricular dimensions suggested. Estimated left ventricular ejection fraction appears to be at least 70%. No obvious wall motion abnormality can be appreciated. Left atrium, right atrium, right ventricle grossly normal in size. 4. No pericardial effusion. 5. Appearance of inferior vena cava suggests elevated central venous pressure. cc: MD Patrha Sanabria MD
[2018-10-16] MEDS: LEVAQUIN 500 MG/D5W 500 MG/100 ML IVPB IV SCH (20:51)
[2018-10-17] MEDS: ZOSYN 3.375 GM in NS 50 ML IV SCH ×4 (02:20→21:27)
[2018-10-17] MEDS: LOPRESSOR PO SCH ×4 (02:20→21:26)
[2018-10-17] MEDS: XOPENEX NEB INH SCH ×4 (03:41→21:25)
[2018-10-17] MEDS: ATROVENT NEB INH SCH ×4 (03:41→21:25)
[2018-10-17] MEDS: SOLU-MEDROL IV SCH (06:48)
[2018-10-17] MEDS: PROTONIX PO SCH (06:49)
[2018-10-17] MEDS: NS 1,000 ML IV SCH ×2 (06:49→16:44)
[2018-10-17] MEDS: HUMALOG (PARKWAY) SUBQ SCH ×4 (06:49→21:27)
--- NOTE | 2018-10-17 07:59 | PROGRESS NOTE ---
DATE: 10/17/2018 SUBJECTIVE: Patient seen and examined by myself on the . He notes that he is feeling better. He is hungry. Denies any chest pain, palpitations. He has not been out of bed yet. PHYSICAL EXAM: 0Vital Signs: Temperature 97.8, pulse 100, respiratory 22, BP 134/75. General: Patient is awake, alert. He is in no current respiratory distress. Overall he is feeling better. HEENT: Normocephalic. Neck: Supple. CARDIOVASCULAR: Irregular rate, irregular rhythm, although better rate controlled. Chest: Clear. Nonlabored, no crackles. Abdomen: Soft, nondistended, nontender. Extremities: Moves all extremities. ASSESSMENT: 1. Left lower lobe pneumonia. 2. Sepsis resolved. 3. Bacteremia with Moraxella. 4. Urinary tract infection with Morganella. 5. Acute bronchitis improved. PLAN: We will continue patient in the hospital ICU until his rate is better controlled. We will continue to follow. Continue antibiotics. Oxygen. We will get physical therapy involved. Further orders as needed. cc: Chauncey Melendez MD
[2018-10-17] MEDS: FLOMAX PO SCH ×2 (08:49→21:26)
[2018-10-17] MEDS: MORPHINE IV PRN ×2 (12:18→22:04)
--- NOTE | 2018-10-17 17:58 | PROGRESS NOTE ---
DATE: 10/17/2018 SUBJECTIVE: Patient has no major complaints. OBJECTIVE: Vital signs: Blood pressure is 115/73, heart rate 113, respiratory rate 22, temperature 97.6 degrees, 96% on 2 L. Cardiovascular: Regular rate and rhythm. Pulmonary: Bilateral breath sounds. Clear to auscultation. GI: Soft, nontender, nondistended. Bowel sounds are positive. He looks like he is working a little harder to breathe. Unclear if he is that far off baseline he is though. LABORATORY DATA: I do not have any white count today. Sugar was 281. ASSESSMENT: 1. Left lower lobe pneumonia. We will continue antibiotics and breathing treatments. Presumably associated with Moraxella and currently on Levaquin. Positive blood culture with Moraxella, so I am going to repeat blood cultures just to make sure they are negative. He does not need anymore vancomycin because it was a coagulase-negative Staph which is felt to be likely related to a skin contaminant, Moraxella probably less so. 2. Morganella urinary tract infection. Also sensitive to Levaquin. I guess there are no strict sensitivities, but presumably it is sensitive fluoroquinolones. DISPOSITION: I think he is doing better. We need to get PT, OT involved. He is a [facility] case. He does not want family involved and he will likely need rehab. Continue to follow. cc: Oleksandr Blackman MD [facility]
[2018-10-17] MEDS: LEVAQUIN 500 MG/D5W 500 MG/100 ML IVPB IV SCH (20:13)
[2018-10-18] MEDS: LOPRESSOR PO SCH ×4 (01:19→22:28)
[2018-10-18] MEDS: ZOSYN 3.375 GM in NS 50 ML IV SCH ×4 (01:19→20:09)
[2018-10-18] MEDS: MORPHINE IV PRN ×3 (01:19→22:33)
[2018-10-18] MEDS: ATROVENT NEB INH SCH ×4 (03:20→21:50)
[2018-10-18] MEDS: XOPENEX NEB INH SCH ×4 (03:20→21:50)
[2018-10-18] MEDS ORDERED: SOLU-MEDROL IV SCH (06:00)
[2018-10-18] MEDS: HUMALOG (PARKWAY) SUBQ SCH ×4 (06:54→20:09)
[2018-10-18] MEDS: PROTONIX PO SCH (06:55)
[2018-10-18 07:16] LABS: AGAP 9; BUN 27 mg/dL (8-22); CHLORIDE 108 mmol/L (98-107); COSMO 284; GLUCOSE 98 mg/dL (70-104); POTASSIUM 4.8 mmol/L (3.5-5.1); SODIUM 140 mmol/L (136-145); TCO2 23 mmol/L (25-35)
[2018-10-18 07:17] LABS: CREATININE 0.7 mg/dL (0.7-1.2); MAGNESIUM 1.7 mg/dL (1.5-2.7); PHOSPHORUS 2.1 mg/dL (2.7-4.5)
[2018-10-18 08:33] LABS: BASO% 1.1 % (0.0-0.8); EOS# 0.37 X1000 (0.0-0.7); HEMATOCRIT 36.1 % (42.0-52.0); HEMOGLOBIN 11.5 g/dL (14.0-18.0); IMM GRAN# 1.17 X1000 (0.0-0.04); IMM GRAN% 6.5 % (0.0-0.5); LYMPH# 2.78 X1000 (1.2-3.4); LYMPH% 15.4 % (20.5-51.1); MCH 27.6 PG (27-31); MCHC 31.9 g/dL (33-37); MCV 86.6 FL (81-99); MONO# 1.19 X1000 (0.11-0.59); MONO% 6.6 % (1.7-9.3); MPV 9.4 FL (7.4-10.4); NEUT# 12.36 X1000 (1.4-6.5); NEUT% 68.4 % (42.2-75.2); PLT 223 X1000 (130-400); RBC 4.17 XMIL (4.7-6.1); RDW 15.7 % (11.5-14.5); WBC 18.07 X1000 (4.8-10.8)
[2018-10-18] MEDS: FLOMAX PO SCH (08:42)
[2018-10-18] MEDS: NS 1,000 ML IV SCH ×2 (08:42→22:29)
[2018-10-18 09:53] LABS: BANDS 5 % (0-1); LYMPHS 17 % (21-51); MONO 7 % (1-9); SEGS 71 % (42-75)
--- NOTE | 2018-10-18 14:45 | PROGRESS NOTE ---
DATE: 10/18/2018 SUBJECTIVE: Patient has no major complaints. OBJECTIVE: Vital signs: Blood pressure 99/70, heart rate of 102, respiratory rate of 22, temperature 97 degrees, 96% on 2 L. Cardiovascular: Regular rate and rhythm. Pulmonary: Bilateral breath sounds clear to auscultation. GI: Soft, nontender, nondistended. Bowel sounds are positive. LABORATORY DATA: White count is 18, hemoglobin and hematocrit 11 and 36, platelets 223,000. Basic was normal except for phosphorus of 2.1. PROBLEM LIST: 1. Left lower lobe pneumonia. He is on breathing treatments. Positive blood culture for Moraxella. Therefore, I feel like this is related to that. 1. We will continue empiric antibiotics and follow. 2. Morganella urinary tract infection. He is also on antibiotics from that standpoint. He is on Zosyn and Moraxella is sensitive to penicillin. 3. Disposition. We are looking at PT and OT. 4. Atrial fibrillation with rapid ventricular response. He is still not completely controlled, but overall his heart rate is controlled. We will continue to follow. cc: Oleksandr Blackman MD [facility]
[2018-10-18] MEDS: LOPRESSOR IV PRN (18:35)
[2018-10-18] MEDS: LEVAQUIN 500 MG/D5W 500 MG/100 ML IVPB IV SCH (20:09)
[2018-10-18] MEDS ORDERED: ROBITUSSIN PO PRN (23:01)
[2018-10-18] MEDS ORDERED: ROBITUSSIN-DM PO PRN (23:16)
[2018-10-19] MEDS: LOPRESSOR PO SCH ×4 (03:01→21:12)
[2018-10-19] MEDS: ZOSYN 3.375 GM in NS 50 ML IV SCH ×4 (03:01→21:11)
[2018-10-19] MEDS: XOPENEX NEB INH SCH ×4 (03:40→22:30)
[2018-10-19] MEDS: ATROVENT NEB INH SCH ×4 (03:40→22:30)
[2018-10-19] MEDS: PROTONIX PO SCH (06:34)
[2018-10-19] MEDS: HUMALOG (PARKWAY) SUBQ SCH ×4 (06:34→21:11)
[2018-10-19] MEDS: FLOMAX PO SCH (08:27)
[2018-10-19] MEDS: MORPHINE IV PRN ×2 (09:33→16:44)
[2018-10-19] MEDS: ZOFRAN IV PRN ×2 (09:34→16:45)
[2018-10-19 09:52] LABS: BASO# 0.05 X1000 (0.0-0.2); BASO% 0.3 % (0.0-0.8); EOS# 0.32 X1000 (0.0-0.7); EOS% 2.2 % (0.0-10.0); HEMATOCRIT 32.6 % (42.0-52.0); IMM GRAN# 0.72 X1000 (0.0-0.04); LYMPH# 1.97 X1000 (1.2-3.4); LYMPH% 13.6 % (20.5-51.1); MCH 26.8 PG (27-31); MCHC 30.7 g/dL (33-37); MCV 87.4 FL (81-99); MONO% 6.9 % (1.7-9.3); NEUT# 10.47 X1000 (1.4-6.5); PLT 220 X1000 (130-400); RBC 3.73 XMIL (4.7-6.1); RDW 16.5 % (11.5-14.5); WBC 14.53 X1000 (4.8-10.8)
[2018-10-19 10:03] LABS: AGAP 7; BUN 29 mg/dL (8-22); CALCIUM 7.9 mg/dL (8.8-10.2); CHLORIDE 107 mmol/L (98-107); COSMO 287; CREATININE 0.6 mg/dL (0.7-1.2); ESTIMATED GFR > 60; GLUCOSE 97 mg/dL (70-104); MAGNESIUM 1.7 mg/dL (1.5-2.7); POTASSIUM 4.7 mmol/L (3.5-5.1); SODIUM 141 mmol/L (136-145); TCO2 27 mmol/L (25-35)
[2018-10-19 10:04] LABS: HEMOGLOBIN A1C 5.8 % (4.8-6.0)
[2018-10-19] MEDS: NS 1,000 ML IV SCH ×2 (14:22→14:27)
[2018-10-19] MEDS ORDERED: ALBUMIN 25% IV ONE (17:45)
--- NOTE | 2018-10-19 18:00 | PROGRESS NOTE ---
DATE: 10/19/2018 SUBJECTIVE: Patient has no major complaints. OBJECTIVE: Vital Signs: Blood pressure is 86/50, heart rate of 88, respiratory rate of 17, temperature 93, 95% on 2 L. Cardiovascular: Regular rate and rhythm. Pulmonary: Bilateral breath sounds, clear to auscultation. GI: Was soft, nontender, nondistended. Bowel sounds are positive. Extremities: Have no clubbing or cyanosis. Lymphatic exam: No peripheral edema. Neurological: Nonfocal. Skin: He does have pitting edema just throughout upper extremities, abdomen significant. LABORATORY DATA: White count 14, hemoglobin and hematocrit 10 and 32, platelets 220. Basic was normal. PROBLEM LIST: 1. Left lower lobe pneumonia. He is on Zosyn and Levaquin, day 7 and day 4. Seems to be doing okay. 2. Atrial fibrillation with rapid ventricular rate. He seems to be doing okay from that standpoint. We will continue to follow closely. 3. Anasarca. We will continue. I am going to initiate some diuretics and stop blood pressure medications. 4. Severe deconditioning. We will continue to monitor. He is still somewhat weak and follow closely. Anticipate discharge soon. He will likely need rehab. We will continue to follow. cc: Oleksandr Blackman MD
[2018-10-19] MEDS: LASIX IV SCH (18:26)
[2018-10-19] MEDS: LEVAQUIN PO SCH (18:26)
[2018-10-20] MEDS: ZOSYN 3.375 GM in NS 50 ML IV SCH ×3 (02:29→14:25)
[2018-10-20] MEDS: LOPRESSOR PO SCH ×4 (02:30→21:40)
[2018-10-20] MEDS: XOPENEX NEB INH SCH ×4 (04:20→22:41)
[2018-10-20] MEDS: ATROVENT NEB INH SCH ×4 (04:20→22:41)
[2018-10-20] MEDS: LASIX IV SCH ×2 (05:44→17:50)
[2018-10-20] MEDS: MORPHINE IV PRN (05:44)
[2018-10-20] MEDS: PROTONIX PO SCH (06:26)
[2018-10-20] MEDS: HUMALOG (PARKWAY) SUBQ SCH ×4 (06:26→21:43)
[2018-10-20 06:55] LABS: BASO# 0.02 X1000 (0.0-0.2); BASO% 0.2 % (0.0-0.8); EOS# 0.28 X1000 (0.0-0.7); EOS% 2.6 % (0.0-10.0); HEMOGLOBIN 9.4 g/dL (14.0-18.0); IMM GRAN# 0.41 X1000 (0.0-0.04); IMM GRAN% 3.8 % (0.0-0.5); LYMPH# 1.32 X1000 (1.2-3.4); LYMPH% 12.3 % (20.5-51.1); MCHC 30.3 g/dL (33-37); MCV 89.1 FL (81-99); MONO# 0.76 X1000 (0.11-0.59); MONO% 7.1 % (1.7-9.3); MPV 9.1 FL (7.4-10.4); NEUT# 7.92 X1000 (1.4-6.5); PLT 191 X1000 (130-400); RBC 3.48 XMIL (4.7-6.1); RDW 16.7 % (11.5-14.5); WBC 10.71 X1000 (4.8-10.8)
[2018-10-20 07:47] LABS: AGAP 7; BUN 33 mg/dL (8-22); CALCIUM 8.2 mg/dL (8.8-10.2); CHLORIDE 102 mmol/L (98-107); COSMO 288; CREATININE 0.7 mg/dL (0.7-1.2); ESTIMATED GFR > 60; GLUCOSE 154 mg/dL (70-104); POTASSIUM 4.7 mmol/L (3.5-5.1); SODIUM 139 mmol/L (136-145); TCO2 30 mmol/L (25-35)
[2018-10-20] MEDS: LEVAQUIN PO SCH (09:11)
[2018-10-20] MEDS: FLOMAX PO SCH (09:11)
--- NOTE | 2018-10-20 17:38 | PROGRESS NOTE ---
DATE: 10/20/2018 SUBJECTIVE: He seems to be breathing a little bit better. No major complaints. OBJECTIVE: Vital Signs: Blood pressure is 101/45, heart rate 93, respiratory rate 16, temperature 98.5. Cardiovascular: Regular rate and rhythm. Pulmonary: Bilateral breath sounds, clear to auscultation. GI: Was soft, nontender, nondistended. Bowel sounds are positive. LABS: White count 10, hemoglobin and hematocrit 9 and 31, platelets 191. Basic was normal. PROBLEM LIST: 1. Left lower lobe pneumonia. He is on Zosyn and Levaquin and seems to be better. I think we could probably start stepping him down a bit. 2. Atrial fibrillation seems to be overall rate controlled. He is on Lopressor and seems to be doing better from that standpoint. 3. Anasarca. Volume overload. We will continue diuresis and stop medications. 4. Deconditioning. We will continue with physical therapy and occupational therapy and see how he does. DISPOSITION: Pending his clinical status. We are looking at rehab options for him. Hopefully, the next several days. cc: Oleksandr Blackman MD
[2018-10-21] MEDS: LOPRESSOR PO SCH ×4 (01:06→20:57)
[2018-10-21] MEDS: XOPENEX NEB INH SCH ×4 (03:38→22:47)
[2018-10-21] MEDS: ATROVENT NEB INH SCH ×4 (03:38→22:47)
[2018-10-21] MEDS: PROTONIX PO SCH (06:01)
[2018-10-21] MEDS: LASIX IV SCH ×2 (06:01→17:38)
[2018-10-21] MEDS: HUMALOG (PARKWAY) SUBQ SCH ×4 (06:43→21:09)
[2018-10-21 09:01] LABS: BASO# 0.01 X1000 (0.0-0.2); BASO% 0.1 % (0.0-0.8); EOS# 0.24 X1000 (0.0-0.7); HEMATOCRIT 29.8 % (42.0-52.0); HEMOGLOBIN 9.4 g/dL (14.0-18.0); IMM GRAN# 0.24 X1000 (0.0-0.04); LYMPH% 13.5 % (20.5-51.1); MCH 27.4 PG (27-31); MCHC 31.5 g/dL (33-37); MCV 86.9 FL (81-99); MONO% 5.9 % (1.7-9.3); MPV 8.7 FL (7.4-10.4); NEUT# 9.06 X1000 (1.4-6.5); NEUT% 76.5 % (42.2-75.2); PLT 194 X1000 (130-400); RBC 3.43 XMIL (4.7-6.1); RDW 16.6 % (11.5-14.5); WBC 11.85 X1000 (4.8-10.8)
[2018-10-21 09:13] LABS: AGAP 6; BUN 28 mg/dL (8-22); CALCIUM 7.7 mg/dL (8.8-10.2); CHLORIDE 95 mmol/L (98-107); COSMO 281; CREATININE 0.6 mg/dL (0.7-1.2); ESTIMATED GFR > 60; GLUCOSE 135 mg/dL (70-104); POTASSIUM 3.7 mmol/L (3.5-5.1); SODIUM 137 mmol/L (136-145); TCO2 35 mmol/L (25-35)
[2018-10-21] MEDS: LEVAQUIN PO SCH (09:42)
[2018-10-21] MEDS: FLOMAX PO SCH (09:42)
[2018-10-21] MEDS ORDERED: LEVAQUIN PO ONE (16:42)
--- NOTE | 2018-10-21 19:15 | PROGRESS NOTE ---
DATE: 10/21/2018 SUBJECTIVE: Patient has no complaints. OBJECTIVE: Blood pressure 118/64, heart rate of 95, respiratory rate of 18, temperature was 97.6 degrees, 95% on 2 L.Cardiovascular: Regular rate and rhythm. Pulmonary: Bilateral breath sounds, clear to auscultation. GI: Soft, nontender, nondistended. Bowel sounds are positive. LABORATORY DATA: White count 11, hemoglobin and hematocrit 9 and 29, platelets of 194,000, BUN and creatinine 28.6. 1. Patient left lower lobe pneumonia. He is on Zosyn and Levaquin, his white count had been better, I think we stopped antibiotics yesterday so we will continue to follow. 2. Atrial fibrillation which is rate controlled on Lopressor. 3. Anasarca. We will continue diuretics and follow. Encourage protein improvement. 4. Sacral decubitus. We will continue wound care and follow. DISPOSITION: Pending clinical status. Hopefully can get to rehab at beginning of the week.. cc: Oleksandr Blackman MD [facility]
[2018-10-22] MEDS: LOPRESSOR PO SCH ×4 (01:40→21:34)
[2018-10-22] MEDS: XOPENEX NEB INH SCH ×4 (03:37→22:16)
[2018-10-22] MEDS: ATROVENT NEB INH SCH ×4 (03:37→22:16)
[2018-10-22] MEDS: PROTONIX PO SCH (06:05)
[2018-10-22] MEDS: HUMALOG (PARKWAY) SUBQ SCH ×4 (06:05→21:34)
[2018-10-22] MEDS: LASIX IV SCH ×2 (06:05→17:30)
[2018-10-22 08:19] LABS: BASO# 0.01 X1000 (0.0-0.2); BASO% 0.1 % (0.0-0.8); EOS# 0.24 X1000 (0.0-0.7); EOS% 2.1 % (0.0-10.0); IMM GRAN# 0.11 X1000 (0.0-0.04); LYMPH# 1.58 X1000 (1.2-3.4); LYMPH% 13.8 % (20.5-51.1); MCH 27.2 PG (27-31); MCHC 31.3 g/dL (33-37); MCV 87.2 FL (81-99); MONO% 6.1 % (1.7-9.3); MPV 8.7 FL (7.4-10.4); NEUT# 8.79 X1000 (1.4-6.5); NEUT% 76.9 % (42.2-75.2); PLT 199 X1000 (130-400); RBC 3.67 XMIL (4.7-6.1); RDW 16.8 % (11.5-14.5); WBC 11.43 X1000 (4.8-10.8)
[2018-10-22 08:38] LABS: AGAP 6; BUN 27 mg/dL (8-22); CHLORIDE 95 mmol/L (98-107); COSMO 284; CREATININE 0.7 mg/dL (0.7-1.2); ESTIMATED GFR > 60; GLUCOSE 120 mg/dL (70-104); POTASSIUM 3.8 mmol/L (3.5-5.1); SODIUM 139 mmol/L (136-145); TCO2 38 mmol/L (25-35)
[2018-10-22] MEDS: LEVAQUIN PO SCH (11:07)
[2018-10-22] MEDS: FLOMAX PO SCH (11:07)
--- NOTE | 2018-10-22 19:49 | PROGRESS NOTE ---
DATE: 10/22/2018 SUBJECTIVE: Patient has no focal complaints. OBJECTIVE: Vital Signs: 118/68, heart rate of 88, respiratory rate 18, temperature 98.1, 98% on 1.5 L. Cardiovascular: Regular rate and rhythm. Pulmonary: Bilateral breath sounds. Clear to auscultation. GI: Soft, nontender, nondistended. Bowel sounds are positive. Extremities: He has significant onychomycosis with hyperkeratinization of his nails, especially on his first greater toes. LABORATORY DATA: White count 11, hemoglobin and hematocrit 10 and 32. Basic was normal. PROBLEM LIST: 1. Left lower lobe pneumonia. He is on Levaquin and Zosyn which, at this point, he is on Levaquin alone. I bumped up the dose a little bit because his white count had come up, but seems to be pretty stable. 2. Moraxella bacteremia. He has had Zosyn and Levaquin and repeat blood cultures are clear from the . He had about 7 days of treatment prior to that. There was no evidence of bacteremia. 3. Atrial fibrillation, rate controlled on Lopressor. 4. Anasarca. We will continue diuresis. 5. Sacral decubitus. Continue wound care. 6. Morganella urinary tract infection. Seems to be stable on current medications. DISPOSITION: We are looking at rehab. I anticipate earlier next week. We will work on trying to get his toenails kind of trimmed down prior to discharge. cc: Oleksandr Blackman MD
[2018-10-22] MEDS ORDERED: CARDIZEM IV ONE (19:53)
[2018-10-22] MEDS: ZOFRAN IV PRN (20:02)
[2018-10-23] MEDS: LOPRESSOR PO SCH ×4 (02:23→21:13)
[2018-10-23] MEDS: ATROVENT NEB INH SCH ×4 (03:44→21:18)
[2018-10-23] MEDS: XOPENEX NEB INH SCH ×4 (03:44→21:18)
[2018-10-23] MEDS: HUMALOG (PARKWAY) SUBQ SCH ×4 (06:14→21:13)
[2018-10-23] MEDS: LASIX IV SCH ×2 (06:18→17:22)
[2018-10-23] MEDS: PROTONIX PO SCH (06:18)
[2018-10-23 07:23] LABS: BASO# 0.01 X1000 (0.0-0.2); BASO% 0.1 % (0.0-0.8); EOS# 0.17 X1000 (0.0-0.7); EOS% 1.8 % (0.0-10.0); HEMATOCRIT 29.8 % (42.0-52.0); HEMOGLOBIN 9.5 g/dL (14.0-18.0); IMM GRAN# 0.07 X1000 (0.0-0.04); IMM GRAN% 0.8 % (0.0-0.5); LYMPH# 1.23 X1000 (1.2-3.4); LYMPH% 13.3 % (20.5-51.1); MCH 27.6 PG (27-31); MCHC 31.9 g/dL (33-37); MCV 86.6 FL (81-99); MONO# 0.55 X1000 (0.11-0.59); MONO% 5.9 % (1.7-9.3); MPV 8.4 FL (7.4-10.4); NEUT# 7.23 X1000 (1.4-6.5); NEUT% 78.1 % (42.2-75.2); PLT 193 X1000 (130-400); RBC 3.44 XMIL (4.7-6.1); RDW 16.8 % (11.5-14.5); WBC 9.26 X1000 (4.8-10.8)
[2018-10-23 07:32] LABS: AGAP 8; BUN 24 mg/dL (8-22); CALCIUM 7.9 mg/dL (8.8-10.2); CHLORIDE 93 mmol/L (98-107); COSMO 281; CREATININE 0.7 mg/dL (0.7-1.2); ESTIMATED GFR > 60; GLUCOSE 115 mg/dL (70-104); MAGNESIUM 1.8 mg/dL (1.5-2.7); SODIUM 138 mmol/L (136-145); TCO2 37 mmol/L (25-35)
[2018-10-23] MEDS: FLOMAX PO SCH (10:38)
[2018-10-23] MEDS: LEVAQUIN PO SCH (10:39)
[2018-10-23] MEDS: MORPHINE IV PRN (10:50)
--- NOTE | 2018-10-23 18:37 | PROGRESS NOTE ---
DATE: 10/23/2018 SUBJECTIVE: Patient has no focal complaints. OBJECTIVE: His blood pressure is 105/54, heart rate of 98, respiratory rate of 18, temperature 97.9 degrees, 96% on 2 L.Cardiovascular: Regular rate and rhythm. Pulmonary: Bilateral breath sounds clear to auscultation. GI: Soft, nontender, nondistended. Bowel sounds are positive. Extremities: He has got brawny kind of tree bark appearance on his legs with severe onychomycosis. We have trimmed down his nails a bit. PROBLEM LIST: 1. Left lower lobe pneumonia. He is on Levaquin and his white count has stabilized. I am not going to check CBC again. 2. Moraxella bacteremia. He has had Zosyn and Levaquin and it has been stable. Repeat blood cultures are negative. 3. Morganella urinary tract infection. That is resolved although double-check that it was sensitive to Levaquin which it was. 4. Decubitus ulcers, chronic venous ulcers. Will continue wound care. 5. Atrial fibrillation. He has improved overall. DISPOSITION: Pending his clinical status I think he is probably ready to go to rehab. He did have a brief episode of atrial fibrillation but that seems to be under better control now so we will follow. cc: Oleksandr Blackman MD
[2018-10-24] MEDS: LOPRESSOR PO SCH ×4 (01:45→20:39)
[2018-10-24] MEDS: XOPENEX NEB INH SCH ×4 (03:26→21:36)
[2018-10-24] MEDS: ATROVENT NEB INH SCH ×4 (03:26→21:36)
[2018-10-24] MEDS: HUMALOG (PARKWAY) SUBQ SCH ×4 (06:00→20:39)
[2018-10-24] MEDS: PROTONIX PO SCH (06:12)
[2018-10-24] MEDS: LASIX IV SCH ×2 (06:12→19:04)
[2018-10-24 06:39] LABS: BASO# 0.01 X1000 (0.0-0.2); BASO% 0.1 % (0.0-0.8); EOS# 0.19 X1000 (0.0-0.7); EOS% 2.3 % (0.0-10.0); HEMATOCRIT 28.6 % (42.0-52.0); HEMOGLOBIN 8.9 g/dL (14.0-18.0); IMM GRAN# 0.04 X1000 (0.0-0.04); IMM GRAN% 0.5 % (0.0-0.5); LYMPH# 1.09 X1000 (1.2-3.4); LYMPH% 13.3 % (20.5-51.1); MCH 27.1 PG (27-31); MCHC 31.1 g/dL (33-37); MCV 87.2 FL (81-99); MONO# 0.66 X1000 (0.11-0.59); MONO% 8.1 % (1.7-9.3); MPV 8.5 FL (7.4-10.4); NEUT# 6.19 X1000 (1.4-6.5); NEUT% 75.7 % (42.2-75.2); PLT 189 X1000 (130-400); RBC 3.28 XMIL (4.7-6.1); RDW 16.8 % (11.5-14.5); WBC 8.18 X1000 (4.8-10.8)
[2018-10-24 07:18] LABS: AGAP 8; BUN 24 mg/dL (8-22); CALCIUM 7.8 mg/dL (8.8-10.2); CHLORIDE 93 mmol/L (98-107); COSMO 281; CREATININE 0.7 mg/dL (0.7-1.2); ESTIMATED GFR > 60; GLUCOSE 115 mg/dL (70-104); POTASSIUM 3.8 mmol/L (3.5-5.1); SODIUM 138 mmol/L (136-145); TCO2 37 mmol/L (25-35)
[2018-10-24] MEDS: FLOMAX PO SCH (09:05)
[2018-10-24] MEDS: LEVAQUIN PO SCH (09:05)
--- NOTE | 2018-10-24 12:52 | EKG Report ---
Test Performed on : 10/22/2018 7:52:22 PM Test Reason : Change in heart rate and rhythm Blood Pressure : / mmHG Vent. Rate : 143 BPM Atrial Rate : 187 BPM P-R Int : 000 ms QRS Dur : 086 ms QT Int : 306 ms P-R-T Axes : 000 -13 044 degrees QTc Int : 472 ms Supraventricular tachycardia. Low voltage QRS Borderline ECG No previous ECGs available Unconfirmed Result
[2018-10-24] MEDS: MORPHINE IV PRN (20:39)
--- NOTE | 2018-10-24 22:34 | PROGRESS NOTE ---
DATE: 10/24/2018 SUBJECTIVE: Patient has no new focal complaints. Denies chest pain, palpitations. Currently denies fevers. OBJECTIVE: Vital Signs: Temperature 97.8 degrees, pulse 88, respiratory rate 18, BP 91/50. General: Patient is awake, alert, currently in no distress. Cardiovascular: Regular rate. Chest: Clear. No crackles, no wheezing. Abdomen: Soft, nondistended nontender. Extremities: Moves all extremities. Neurologic: No focal changes. ASSESSMENT: 1. Left lower lobe pneumonia. 2. Moraxella bacteremia. 3. Morganella urinary tract infection. 4. Decubitus ulcers. 5. Atrial fibrillation. 6. Anemia of chronic disease. PLAN: We will continue patient in the hospital. Continue IV antibiotics, IV fluids. Continue physical therapy, and we will follow. cc: Chauncey Melendez MD
[2018-10-25] MEDS: LOPRESSOR PO SCH ×4 (02:48→21:16)
[2018-10-25] MEDS: XOPENEX NEB INH SCH ×4 (03:30→22:24)
[2018-10-25] MEDS: ATROVENT NEB INH SCH ×4 (03:30→22:24)
[2018-10-25 06:34] LABS: BASO# 0.01 X1000 (0.0-0.2); BASO% 0.1 % (0.0-0.8); EOS% 3.6 % (0.0-10.0); HEMATOCRIT 29.7 % (42.0-52.0); HEMOGLOBIN 9.1 g/dL (14.0-18.0); IMM GRAN# 0.04 X1000 (0.0-0.04); IMM GRAN% 0.5 % (0.0-0.5); LYMPH# 1.24 X1000 (1.2-3.4); MCH 26.9 PG (27-31); MCHC 30.6 g/dL (33-37); MCV 87.9 FL (81-99); MONO# 0.58 X1000 (0.11-0.59); MPV 8.2 FL (7.4-10.4); NEUT# 6.09 X1000 (1.4-6.5); NEUT% 73.8 % (42.2-75.2); PLT 196 X1000 (130-400); RBC 3.38 XMIL (4.7-6.1); WBC 8.26 X1000 (4.8-10.8)
[2018-10-25] MEDS: HUMALOG (PARKWAY) SUBQ SCH ×4 (06:42→21:16)
[2018-10-25] MEDS: LASIX IV SCH ×2 (06:42→18:01)
[2018-10-25] MEDS: PROTONIX PO SCH (06:42)
[2018-10-25 06:50] LABS: AGAP 9; BUN 24 mg/dL (8-22); CALCIUM 8.2 mg/dL (8.8-10.2); CHLORIDE 94 mmol/L (98-107); COSMO 287; CREATININE 0.9 mg/dL (0.7-1.2); ESTIMATED GFR > 60; GLUCOSE 165 mg/dL (70-104); POTASSIUM 3.8 mmol/L (3.5-5.1); SODIUM 140 mmol/L (136-145); TCO2 37 mmol/L (25-35)
[2018-10-25] MEDS: FLOMAX PO SCH (08:14)
[2018-10-25] MEDS: LEVAQUIN PO SCH (08:15)
--- NOTE | 2018-10-25 23:29 | PROGRESS NOTE ---
DATE: 10/25/2018 SUBJECTIVE: Patient seen and examined. Currently, he is in no distress. He is lying in bed, he is awake, alert. OBJECTIVE: Vital signs: Temperature 97.4 degrees, pulse 86, BP 99/52. General: Patient is awake, alert, currently in no respiratory distress, lying in the bed. HEENT: Normocephalic. Neck: Supple. CARDIOVASCULAR: Regular rate. Chest: Clear. Abdomen: Soft. Extremities: Moves all extremities. ASSESSMENT: 1. Left lower lobe pneumonia. 2. Morganella bacteremia, resolved. Blood culture negative. 3. Morganella urinary tract infection, resolved. Repeat urinary tract infection,cultures negative next day. 4. Atrial fibrillation. 5. Anemia of chronic disease. PLAN: We will continue patient in the hospital. Continue physical therapy and follow. cc: Chauncey Melendez MD
[2018-10-26] MEDS: LOPRESSOR PO SCH ×3 (02:14→15:45)
[2018-10-26] MEDS: ATROVENT NEB INH SCH ×3 (03:14→15:31)
[2018-10-26] MEDS: XOPENEX NEB INH SCH ×3 (03:14→15:31)
[2018-10-26] MEDS: LASIX IV SCH (06:15)
[2018-10-26] MEDS: HUMALOG (PARKWAY) SUBQ SCH ×3 (06:15→18:21)
[2018-10-26] MEDS: PROTONIX PO SCH (06:15)
[2018-10-26 07:17] LABS: BASO# 0.02 X1000 (0.0-0.2); BASO% 0.3 % (0.0-0.8); EOS# 0.45 X1000 (0.0-0.7); EOS% 5.7 % (0.0-10.0); HEMATOCRIT 27.9 % (42.0-52.0); HEMOGLOBIN 8.7 g/dL (14.0-18.0); IMM GRAN# 0.04 X1000 (0.0-0.04); IMM GRAN% 0.5 % (0.0-0.5); LYMPH# 1.28 X1000 (1.2-3.4); LYMPH% 16.2 % (20.5-51.1); MCH 27.3 PG (27-31); MCHC 31.2 g/dL (33-37); MCV 87.5 FL (81-99); MONO# 0.61 X1000 (0.11-0.59); MONO% 7.7 % (1.7-9.3); MPV 8.5 FL (7.4-10.4); NEUT# 5.52 X1000 (1.4-6.5); NEUT% 69.6 % (42.2-75.2); PLT 186 X1000 (130-400); RBC 3.19 XMIL (4.7-6.1); RDW 16.8 % (11.5-14.5); WBC 7.92 X1000 (4.8-10.8)
[2018-10-26] MEDS ORDERED: LASIX PO SCH (09:00)
[2018-10-26] MEDS: FLOMAX PO SCH (10:14)
[2018-10-26] MEDS: LEVAQUIN PO SCH (10:14)
--- NOTE | 2018-10-26 15:43 | DISCHARGE SUMMARY ---
ADMISSION DATE: 10/12/2018 DISCHARGE DATE: 10/26/2018 DIAGNOSES: 1. Sepsis, resolved. 2. Left lower lobe pneumonia. 3. Moraxella bacteremia, resolved. Repeat blood cultures on 10/18/2018 negative. 4. Morganella urinary tract infection, resolved. 5. Atrial fibrillation. 6. Chronic obstructive pulmonary disease. 7. Anemia of chronic disease. 8. History of prostate cancer status post radiation therapy, 2008. 9. Morbid obesity. 10. History of hypertension. DIAGNOSTICS: 1. 10/11/2018 chest x-ray revealed chronic elevation of the left hemidiaphragm, mild atelectasis or infiltrate at the left base. 2. 10/13/2018 chest x-ray: Increased opacity at the left base, suspicious for infiltrate or pneumonia. 3. 10/14/2018 echocardiogram reveals an ejection fraction of 70%. No obvious wall motion abnormality. Left atrium, right atrium, and right ventricle are grossly normal in size. MICROBIOLOGY: 1. Blood cultures from 10/11/2018 revealed Moraxella group and Staphylococcus epidermidis. 2. Urine culture revealed Morganella morganii. 3. Repeat blood cultures 10/18/2018 revealed no growth after 5 days. 4. Stool cultures: Ova and parasite, none seen. Trichrome stain, none seen. 5. No Salmonella, Shigella, Campylobacter or E coli isolated. Cryptosporidium and Giardia revealed negative. HOSPITAL COURSE: Mr. Vizcaino presented to the emergency room with shortness of breath. He was found to have left lower lobe pneumonia. He was septic. He did require pressors. He was initially treated with vancomycin and Zosyn. Once cultures were resulted, he was treated with Levaquin for the Morganella and Zosyn for the Moraxella bacteremia. Repeat blood cultures were negative. He was initially in atrial fibrillation with a rapid ventricular rate. He was placed in ICU and placed on a Cardizem drip. Cardiology was consulted, and we were able to control his rate with Lopressor 25 mg p.o. q.6 h. He has severe deconditioning along with morbid obesity. Physical Therapy and Occupational Therapy evaluated the patient and felt that he needed further therapy and rehabilitation was recommended and thankfully he is ready to be discharged in transfer. DISCHARGE PHYSICAL EXAMINATION: Cardiovascular: Regular rate and rhythm. S1 and S2 appreciated. He does have some generalized lower extremity edema with peripheral pulses palpable x4 extremities. His calves are nontender to palpation. Pulmonary: His breath sounds are diminished throughout. Chest rises and falls symmetrically with respiration. Chest wall is nontender to palpation. Gastrointestinal: Abdomen is soft, nontender, nondistended with bowel sounds in all 4 quadrants. Neurologic: He is alert and oriented x3. Skin: He does have bilateral heel pressure areas that currently have Mepilex dressing intact, as well as areas of excoriation noted to his distal legs, buttocks, scrotum, and abdominal folds, which we are using Vashe gauze and Calmoseptine per Wound Therapy's recommendations. DISCHARGE MEDICATIONS: 1. Flomax 0.4 mg p.o. daily. 2. Protonix 40 mg p.o. daily. 3. Lopressor 25 mg p.o. q.6 h. 4. Atrovent nebulizers q.6 h. p.r.n. INCOMPLETE REPORT - DICTATION ENDS HERE Dictated by RIZWANA Davila for Chauncey Melendez MD This chart was documented by, RIZWANA Davila and accurately reflects the services performed, treatment plan and medical decisions as attested by the providers signature Chauncey Melendez MD. cc: RIZWANA Davila MD
[2018-10-26 19:32] VITALS: BP 114/50
--- NOTE | 2018-10-27 06:28 | DISCHARGE SUMMARY ---
ADMISSION DATE: 10/12/2018 DISCHARGE DATE: 10/26/2018 ADDENDUM: The patient is seen and examined by myself. Full note dictated and discussed with nurse practitioner. Patient notes that he is ready and eager to continue to participate with physical therapy. We will discharge him to rehab. Further orders as needed. cc: Chauncey Melendez MD
== END 2018-10-26 20:15 | DRG 871 ==
LOC: P.ED 22:01 → SUATTDRO 10-12 01:58 → P.EDIPHOLD 10-12 01:58 → P.ICU 10-12 19:18 → P.MEDSURG 10-20 11:30
PROVIDERS: ATTEND Family Medicine
CPT/HCPCS: 71010; 71045; 80048; 80053; 80202; 81001; 82550; 82805; 82948; 83036; 83605; 83735; 84100; 84443; 84484; 85025; 85027; 85610; 85730; 87040; 87045; 87046; 87077; 87088; 87177; 87186; 87324; 87328; 87329; 88313; 93005; 93010; 93306; 94640; 94761; 94799; 96361; 96365; 96375; 97110; 97163; 97166; 97530; 99285; A9270; J0696; J1160; J1815; J1940; J1956; J2270; J2405; J2543; J2920; J2930; J3370; J7030; J7040; P9047; XXXXX

== ENCOUNTER 2019-06-25 09:02 | Inpatient (IN) ==
--- NOTE | 2019-06-25 09:32 | EKG Report ---
Test Performed on : 06/25/2019 10:12:40 AM Test Reason : CP Blood Pressure : / mmHG Vent. Rate : 102 BPM Atrial Rate : 102 BPM P-R Int : 158 ms QRS Dur : 092 ms QT Int : 340 ms P-R-T Axes : 023 -02 025 degrees QTc Int : 443 ms Sinus tachycardia. with premature atrial complexes. with aberrant conduction. Otherwise normal ECG When compared with ECG of 22-OCT-2018 19:52, aberrant conduction. is now present Unconfirmed Result
--- NOTE | 2019-06-25 09:36 | Diag Imaging Result Doc PS360 ---
EXAM: CHEST-1 VIEW 06/25/2019 HISTORY: CP TECHNIQUE: AP portable at 0921 COMMENT: There is elevation of the left hemidiaphragm and basilar atelectasis on the left. The inspiration is less optimal than on 10/13/2018, otherwise are has been very little change. There is an apparent PICC line on the right with its tip in the superior vena cava. IMPRESSION: Poor inspiration. Left basilar atelectasis. Electronically signed by Geovanni Medina 06/25/2019 9:34 AM
[2019-06-25 10:18] LABS: BASO# 0.05 X1000 (0.0-0.2); BASO% 0.2 % (0.0-0.8); EOS# 1.26 X1000 (0.0-0.7); EOS% 6.3 % (0.0-10.0); HEMATOCRIT 36.1 % (42.0-52.0); IMM GRAN# 0.12 X1000 (0.0-0.04); IMM GRAN% 0.6 % (0.0-0.5); LYMPH# 1.68 X1000 (1.2-3.4); LYMPH% 8.4 % (20.5-51.1); MCH 28.1 PG (27-31); MCHC 30.5 g/dL (33-37); MCV 92.1 FL (81-99); MONO# 1.22 X1000 (0.11-0.59); MONO% 6.1 % (1.7-9.3); MPV 8.1 FL (7.4-10.4); NEUT# 15.71 X1000 (1.4-6.5); NEUT% 78.4 % (42.2-75.2); PLT 304 X1000 (130-400); RBC 3.92 XMIL (4.7-6.1); WBC 20.04 X1000 (4.8-10.8)
[2019-06-25 10:24] LABS: INR 1.38; PROTIME 17.2 Seconds (11.0-16.0)
[2019-06-25 10:25] LABS: PTT 34.8 Seconds (22.3-41.8)
[2019-06-25 10:44] LABS: AGAP 10; ALBUMIN 3.4 g/dL (3.5-5.0); ALKALINE PHOSPHATASE 84 U/L (32-122); BUN 28 mg/dL (8-22); CALCIUM 8.7 mg/dL (8.8-10.2); CHLORIDE 92 mmol/L (98-107); CK PROFILE 28 U/L (24-204); COSMO 291; CREATININE 0.9 mg/dL (0.7-1.2); ESTIMATED GFR > 60; GLUCOSE 180 mg/dL (70-104); GOT 11 U/L (10-34); GPT 11 U/L (10-44); POTASSIUM 3.3 mmol/L (3.5-5.1); SODIUM 141 mmol/L (136-145); TCO2 39 mmol/L (25-35); TOTAL PROTEIN 6.8 g/dL (6.3-8.3)
[2019-06-25] MEDS ORDERED: NS 1,000 ML IV SCH (12:15)
[2019-06-25] MEDS ORDERED: DUONEB (A & A) INH PRN (12:16)
[2019-06-25] MEDS ORDERED: TYLENOL PO PRN (12:19)
[2019-06-25] MEDS ORDERED: MILK OF MAGNESIA PO PRN (12:19)
[2019-06-25] MEDS ORDERED: KLOR-CON PO ONE (13:17)
--- NOTE | 2019-06-25 14:12 | PROVIDER DOCUMENTATION ---
This chart was entered by Coral Eduardo Scribe, acting as scribe for Sola Maria MD. HPI-Chest Pain - General Chief Complaint: Chest Pain Stated Complaint: CP Time Seen by Provider: 06/25/19 09:15 Source: patient, EMS, [facility] records Allergies/Adverse Reactions: Patient Allergies Allergy/AdvReac Type Severity Reaction Status Date / Time ibuprofen Allergy SWELLING Verified 01/21/16 12:35 vancomycin Allergy Unknown Verified 06/25/19 09:44 Home Medications: Home Medication List Medication Instructions Recorded Confirmed Last Taken Type Furosemide [Lasix] 40 mg PO DAILY tablet 10/26/18 06/25/19 06/24/19 15:38 Rx Acetaminophen 325 mg PO Q4H PRN 06/25/19 06/25/19 06/06/19 11:00 History Albuterol Sulfate Inhaler 1 puff INH [id number] 06/25/19 06/25/19 06/24/19 19:15 History [Ventolin Hfa] Apixaban [Eliquis] 2.5 mg PO BID 06/25/19 06/25/19 06/25/19 07:04 History Cholecalciferol (Vitamin D3) 2,000 unit PO DAILY 06/25/19 06/25/19 06/25/19 07:04 History [Vitamin D3] Daptomycin 850 mg IV DAILY 06/25/19 06/25/19 06/24/19 18:45 History Furosemide [Lasix] 80 mg PO DAILY 06/25/19 06/25/19 06/25/19 07:04 History Ipratropium/Albuterol Sulfate 1 puff INHALATION BID 06/25/19 06/25/19 06/24/19 19:15 History [Combivent Respimat Inhal [place]] Iron,Carb/Vit C/Vit B12/Folic 1 ea PO DAILY 06/25/19 06/25/19 06/25/19 07:04 History [Iron 100 Plus Tablet] Lanolin Cream [Lantiseptic Cream] 1 applic TOP Q12H 06/25/19 06/25/19 06/24/19 19:15 History Magnesium Hydroxide [Milk of 30 ml PO QAM PRN 06/25/19 06/25/19 Unknown History Magnesia] Metoprolol Succinate E.r. [Toprol 25 mg PO DAILY 06/25/19 06/25/19 06/25/19 07:04 History Xl] Pantoprazole [Protonix] 40 mg PO QAM 06/25/19 06/25/19 06/25/19 05:11 History Tamsulosin [Flomax] 0.4 mg PO QHS 06/25/19 06/25/19 Unknown History - History of Present Illness-CP Nature of Presenting Problem: 79 y/o male presents to ED from [facility] via EMS with chest pain and SOB onset this morning. Pt reports the pain is across his chest. Pt is currently on antibiotics for pneumonia and cellulitis. Pt was given 325 mg aspirin and nitro at correction. EMS states they gave him nitro and a breathing treatment en route to ED. Pt is alert and oriented. Location: reports: central Chest Pain Radiation: reports: no radiation Quality of Pain: reports: sharp Severity in ED: mild, moderate Onset/Duration: this morning Timing: still present Context/Activities at Onset: reports: none Modifying Factors: improves with: nothing Associated Symptoms: reports: shortness of breath Nitro Today/Relief: 0.4 mg x 2, provided by EMS, provided at home, mild relief Aspirin Treatment Today: 325 mg x 1, provided at home Prior Chest Pain/Cardiac Workup: reports: no prior chest pain, no prior cardiac workup Similar Symptoms Previously?: No Recently Seen Here or By Another Healthcare Provider: No Review of Systems - Adult - REVIEW OF SYSTEMS - ADULT Constitutional: denies: chills, fever Eyes: reports: no symptoms reported Ears, Nose, Mouth & Throat: reports: no symptoms reported Cardiovascular: reports: chest pain. denies: palpitations Respiratory: reports: shortness of breath. denies: cough Gastrointestinal: reports: no symptoms reported Genitourinary: reports: no symptoms reported Musculoskeletal: reports: no symptoms reported Integumentary: reports: no symptoms reported Neurological: reports: no symptoms reported Psychiatric: reports: no symptoms reported Endocrine: reports: no symptoms reported Hematologic/Lymphatic: reports: no symptoms reported Allergic/Immunologic: reports: no symptoms reported All Other Systems: Reviewed and Negative Past History - Adult - PAST MEDICAL HISTORY-ADULT Review of Records: reports: Old Records Reviewed, Nursing Assessment Review, Medications Reviewed Major Childhood Illnesses: reports: denies history Cardiovascular: reports: A-Fib, HTN (no meds) Respiratory: reports: COPD Gastrointestinal: reports: GERD Obstetrical/Gynecological: reports: denies history Genitourinary: reports: prostate cancer Musculoskeletal: reports: chronic pain (chronic knee pain) Neurological: reports: denies history Endocrine/Immune: reports: anemia Other Conditions: reports: denies history - PRIOR SURGERIES/PROCEDURES Surgical/Procedure History: reports: orthopedic (extremity) (R knee; L leg; L foot), joint replacement (TKR), other (hip Sx) - IMMUNIZATION STATUS Childhood Immunizations: See Nurse Assessment Flu Vaccine: See Nurse Assessment - FAMILY HISTORY Family History: reviewed, not pertinent - SOCIAL HISTORY Smoking: quit greater than 1 year Substance Use: none/never Alcohol Use Frequency: occasionally Living Situation: family Physical Exam-General - PHYSICAL EXAM-ADULT Initial Vital Signs Reviewed: Yes - CONSTITUTIONAL General Appearance: appears well, alert, no apparent distress - EYES Eyes: PERRL/EOMI, pink conjunctivae - HEAD, EARS, NOSE, MOUTH & THROAT HENMT: normocephalic/atraumatic, moist mucous membranes, normal ENT inspection - NECK Neck: non-tender, full range of motion - RESPIRATORY Respiratory: chest non-tender, crackles, wheezing - CARDIOVASCULAR Cardiovascular: normal peripheral pulses, regular rate, rhythm - GASTROINTESTINAL (ABDOMEN) Abdominal Exam: normal bowel sounds, non tender, soft - MUSCULOSKELETAL Back Exam: normal inspection, no CVA tenderness, no vertebral tenderness Extremity: normal range of motion, non-tender - SKIN Integumentary: normal color, warm/dry, swelling (pitting edema of bilateral lower extremities), other (venous stasis changes of bilateral lower extremities; dressed wound to RLE) - NEUROLOGIC Neurologic: grossly normal - PSYCHIATRIC Psych/Mental Status: normal mood/affect, normal thought content, normal thought process, oriented x 3 - HEART Score HEART Score: History: Slightly Suspicious HEART Score: ECG: Normal HEART Score: Age: > or = 65 Years HEART Score: Risk Factors for Atherosclerotic Disease: 1 or 2 Risk Factors HEART Score: Troponin: < or = Normal Limit Total HEART Score:: 3 Progress - PLAN OF CARE/RESULTS Progress/Plan/Lab Results: Vital Signs - 8 hr 06/25/19 09:19 Temperature 98.7 F Pulse Rate 104 H Respiratory Rate 19 Blood Pressure 128/66 O2 Sat by Pulse Oximetry 95 Laboratory Results - last 24 hr 11/03/19 11/03/19 11/03/19 09:46 09:46 09:46 WBC 20.04 H RBC 3.92 L Hgb 11.0 L Hct 36.1 L MCV 92.1 MCH 28.1 MCHC 30.5 L RDW Std Deviation 13.0 Plt Count 304 MPV 8.1 Immature Gran % (Auto) 0.6 H Neut % (Auto) 78.4 H Lymph % (Auto) 8.4 L [place] % (Auto) 6.1 Eos % (Auto) 6.3 Baso % (Auto) 0.2 Immature Gran # (Auto) 0.12 H Neut # (Auto) 15.71 H Lymph # (Auto) 1.68 [place] # (Auto) 1.22 H Eos # (Auto) 1.26 H Baso # (Auto) 0.05 PT INR PTT (Actin FS) D-Dimer, Quantitative Sodium 141 Potassium 3.3 L Chloride 92 L Carbon Dioxide 39 H Anion Gap 10 BUN 28 H Creatinine 0.9 Estimated GFR/1.73 m2 > 60 BUN/Creatinine Ratio 31 Glucose 180 H Calculated Osmolality 291 Calcium 8.7 L Total Bilirubin 0.60 AST 11 ALT 11 Alkaline Phosphatase 84 Creatine Kinase 28 Troponin T Rar-C-Wslzbuuxsbx Pept 2372 H Total Protein 6.8 Albumin 3.4 L Globulin 3.4 Albumin/Globulin Ratio 1.0 06/25/19 06/25/19 06/25/19 09:46 09:46 09:46 WBC RBC Hgb Hct MCV MCH MCHC RDW Std Deviation Plt Count MPV Immature Gran % (Auto) Neut % (Auto) Lymph % (Auto) [place] % (Auto) Eos % (Auto) Baso % (Auto) Immature Gran # (Auto) Neut # (Auto) Lymph # (Auto) [place] # (Auto) Eos # (Auto) Baso # (Auto) PT 17.2 H INR 1.38 PTT (Actin FS) 34.8 D-Dimer, Quantitative 0.86 H Sodium Potassium Chloride Carbon Dioxide Anion Gap BUN Creatinine Estimated GFR/1.73 m2 BUN/Creatinine Ratio Glucose Calculated Osmolality Calcium Total Bilirubin AST ALT Alkaline Phosphatase Creatine Kinase Troponin T 0.053 Fuw-W-Xaphpyspdqe Pept Total Protein Albumin Globulin Albumin/Globulin Ratio Orders Category Date Time Status Admit - [facility] Routine AdmDCTranf 06/25/19 11:57 Active Activity - Up with Assistance ORDERED Care 06/25/19 11:57 Active Cardiac Monitoring DIRECTED Care 06/25/19 09:08 Active Currently Rec Anticoagulation [QM] ROUTINE Care 06/25/19 11:57 Active Intake and Output-Strict ORDERED Care 06/25/19 11:57 [facility] Order] DIRECTED Care 06/25/19 11:47 Ac tive Oxygen Therapy- ED Nursing DIRECTED Care 06/25/19 09:08 Active Saline Loc NOW Care 06/25/19 09:08 Active Update & Confirm Home Medicati ROUTINE Care 06/25/19 11:47 Active Vital Signs Order Q 8-HR ASSESS Care 06/25/19 11:57 Active Z-Document. for Tele Applied ORDERED Care 06/25/19 12:01 Active Wound Care/ET Consult Routine Cons 06/25/19 12:03 Active Heart Healthy Diet Diet 06/25/19 12:01 Active CHEST-1 VIEW [RAD] Stat Exams 06/25/19 09:09 Completed CBC WITH DIFF [HEME] Routine Lab 06/26/19 06:00 Ordered CBC WITH ELECTRONIC DIFF [HEME] Stat Lab 06/25/19 09:46 Completed CK PROFILE [SP CHEM] Stat Lab 06/25/19 09:46 Completed CK TOTAL [CHEM] Routine Lab 06/26/19 06:00 Ordered COMPREHENSIVE METABOLIC PANEL [CHEM] Routine Lab 06/26/19 06:00 Ordered COMPREHENSIVE METABOLIC PANEL [CHEM] Stat Lab 06/25/19 09:46 Completed PRO B-NATRIURETIC PEPTIDE Stat Lab 06/25/19 09:46 Completed PROTIME WITH INR [COAG] Stat Lab 06/25/19 09:46 Completed PTT [COAG] Stat Lab 06/25/19 09:46 Completed TROPONIN T Stat Lab 06/25/19 09:46 Completed WOUND CULTURE INC GRAM STAIN [RM] Stat Lab 06/25/19 12:02 Uncollected 0.9% Sodium Chloride Inj [Ns] 1,000 ml Med 06/25/19 12:15 Active IV 75 mls/hr Acetaminophen [Tylenol] Med 06/25/19 12:19 Active 325 mg PO Q4H PRN Albuterol 2.5MG/Ipratrop 0.5MG [Duoneb (A & A)] Med 06/25/19 12:16 Active 3 ml INH Q2H PRN PRN Albuterol 2.5MG/Ipratrop 0.5MG [Duoneb (A & A)] Med 06/25/19 15:30 Active 3 ml INH RTQ4H.WA Apixaban [Eliquis] Med 06/25/19 21:00 Active 2.5 mg PO BID CefEPIME [Maxipime] 2 gm Med 06/25/19 12:15 Active 0.9% Sodium Chloride Inj [Ns] 100 ml IV Q12H Cholecalciferol (Vit D3) [Vitamin D] Med 06/26/19 09:00 Active 2,000 unit PO DAILY Daptomycin [Cubicin] 850 mg Med 06/25/19 18:00 Active 0.9% Sodium Chloride Inj [Ns] 100 ml IV Q24H Furosemide [Lasix] Med 06/25/19 17:00 Active 40 mg PO 1700 Furosemide [Lasix] Med 06/26/19 09:00 Active 80 mg PO DAILY Magnesium Hydroxide [Milk of Magnesia] Med 06/25/19 12:19 Active 30 ml PO QAM PRN PRN Metoprolol Succinate E.r. [Toprol Xl] Med 06/26/19 09:00 Active 25 mg PO DAILY Pantoprazole [Protonix] Med 06/26/19 09:00 Active 40 mg PO QAM Tamsulosin [Flomax] Med 06/25/19 21:00 Active 0.4 mg PO QHS Aerosol Treatments Routine Ot 06/25/19 12:16 Completed CP/SOB/Palp >45 yrs of Age Stat Ot 06/25/19 09:08 Ordered Incentive Spirometer RTQ4H Ot 06/25/19 15:30 Completed Incentive Spirometer RTQ4H Ot 06/25/19 19:30 Completed Incentive Spirometer RTQ4H Ot 06/25/19 23:30 Completed Incentive Spirometer RTQ4H Ot 06/26/19 03:30 Completed Incentive Spirometer RTQ4H Ot 06/26/19 07:30 Completed Incentive Spirometer RTQ4H Ot 06/26/19 11:30 Completed Incentive Spirometer RTQ4H Ot 06/26/19 15:30 Completed Incentive Spirometer RTQ4H Ot 06/26/19 19:30 Completed Incentive Spirometer RTQ4H Ot 06/26/19 23:30 Completed Incentive Spirometer RTQ4H Ot 06/27/19 03:30 Completed Telemetry [OM.EQ] Routine Oth 06/25/19 11:57 Active EKG [EKG] Stat Ther 06/25/19 09:08 Draft Transfer/Admit Order [TRANSFER] Routine Transfer 06/25/19 12:20 Completed Result Diagrams: 06/25/19 09:46 06/25/19 09:46 - EKG 1 Time of EKG reading by physician:: 10:12 EKG Read and Signed by:: Sola Maria EKG Interpretation (*Must complete 3 of following elements*): Normal Rate: 102 Rhythm: Sinus tach with premature atrial complexes with aberrant conduction [place]: normal QRS: normal MI Interval: normal ST Wave: normal - XRAY 1 XRAY Study: Chest Impression: See EMR Report ([facility] - [address], [address] [address] [facility] - [address] [place] [address] Department of Imaging Patient: MARVIN MCBRIDE [place] Date: 06/25/19#: [id number] : 1940DM Status: PRE ERAcct#: [id number] Age/Sex: 79/MRoom/Bed: Loc: ED Ordering Physician: Jennifer Almonte Family Physician: Wilfredo Moser Reason for Procedure: CP ___ Signed EXAM: CHEST-1 VIEW 06/25/2019 HISTORY: CP TECHNIQUE: AP portable at 0921 COMMENT: There is elevation of the left hemidiaphragm and basilar atelectasis on the left. The inspiration is less optimal than on 10/13/2018, otherwise are has been very little change. There is an apparent PICC line on the right with its tip in the superior vena cava. IMPRESSION: Poor inspiration. Left basilar atelectasis. Electronically signed by Geovanni Medina 06/25/2019 9:34 AM 06/25/19933 Interpreting Physician: Geovanni Medina MD Dictated Date/Time: 06/25/19932 cc: Jennifer Campbell; Wilfredo Moser) - CONSULTS/PCP/HOSPITALIST Notification #1 *Consult/PCP/Hospitalist*: RIZWANA Kennedy for Dr. Triplett Time Discussed: 10:59 Reason/Comments: Chest pain, SOB, dyspnea Consult Disposition: Admit Departure - Departure Date of Disposition Decision: 06/25/19 Time of Disposition Decision: 11:00 DIAGNOSIS: SOB (shortness of breath) Chest pain Qualifiers: Chest pain type: unspecified Qualified Code(s): R07.9 - Chest pain, unspecified Dyspnea Qualifiers: Dyspnea type: unspecified Qualified Code(s): R06.00 - Dyspnea, unspecified Disposition: ADMITTED INPATIENT 09 Certified Medical Emergency: Emergent Condition: Stable - Critical Care Note This patient required my direct & personal management of CC.: No Attestation - Physician/ PAULETTE Attestation Patient care was provided by Advanced Practice Provider:: No The physician spent face to face time with patient:: Yes Advanced Practice Provider documentation review:: Supervising physician onsite and consulted in the evaluation and care of this patient. The physician did have a face to face encounter with the patient. This chart was documented by the indicated scribe, (Coral Eduardo, Barbara) and accurately reflects the services I performed and decisions made by me, Sola Maria MD, as attested by the provider's signature.
[2019-06-25] MEDS: MAXIPIME 2 GM in NS 100 ML IV SCH ×2 (14:22→23:52)
--- NOTE | 2019-06-25 15:32 | HISTORY AND PHYSICAL ---
CHIEF COMPLAING: Chest pain, shortness of breath. HISTORY OF PRESENT ILLNESS: This is a 79-year-old, morbidly obese gentleman with a history of hypertension, prostate cancer status post radiation in 2008, iron deficiency anemia, and current treatment for right lower extremity ulcer. He presents via EMS from [facility] where he is a resident. The patient complains of chest pain and shortness of breath. . He states that he has had shortness of breath for a few days despite his continuous O2 at 4 L. He stated he had a sudden onset of chest pain that started a few hours prior to coming to the ER. He stated it felt like somebody stabbed a knife through his chest. [facility] to coming to [facility]. He stated it did not change his pain. Mr. Vizcaino was diagnosed with pneumonia on June 22 and started on Zithromax. He states that he has had no improvement. In fact he has just become progressively worse. PAST MEDICAL HISTORY: 1. Prostate cancer status post radiation 2008. 2. Benign prostatic hypertrophy. 3. Hypertension. 4. Iron deficiency anemia. 5. Seasonal allergies. 6. Morbid obesity. 7. Chronic bilateral lower extremity edema. 8. Atrial fibrillation on chronic anticoagulation with Eliquis. 9. Recent right lower extremity ulceration on IV daptomycin. PAST SURGICAL HISTORY: 1. Left hip repair at 2013. 2. Right knee replacement. 3. Left shoulder surgery. 4. Left elbow surgery. SOCIAL HISTORY: The patient is a resident at [facility]. Prior to this he lived with his daughter and son-in-law. He denies any alcohol, tobacco, or illicit drug use. FAMILY HISTORY: Mother had hypertension. Father had hypertension. They both had heart disease and kidney disease. ALLERGIES: Ibuprofen. HOME MEDICATIONS: A list will be obtained by the nursing staff and once verified and reviewed and restart as appropriate. REVIEW OF SYSTEMS: Discussed with the patient with pertinent positives stated in the HPI. He denied any syncope or dizziness, any palpitations, a productive cough, fever, chills, night sweats, any nausea, vomiting, diarrhea, constipation, black or bloody vomitus or stools, hematuria, dysuria, frequency, urgency. PHYSICAL EXAMINATION: GENERAL: This is a 79-year-old gentleman who is sitting up on the stretcher in the emergency room in no distress. VITAL SIGNS: Blood pressure is 128/66 with a heart rate of 102, respirations are 18, temperature is 98.7 degrees oral with O2 saturations 95 to 97% on 4 L nasal cannula. EYES: Pupils are equal, round, react to light. EOMs are intact. Sclerae anicteric. HEENT: Head is normocephalic, atraumatic. Mucous membranes are moist. NECK: Supple with trachea midline. CARDIOVASCULAR: Regular rate and rhythm. S1 and S2 are appreciated. He is tachycardic. No murmur. He has bilateral lower extremity edema up to about mid thigh with chronic venous changes noted to bilateral lower extremities. Pulses are faint but palpable. Bandage is intact to right zimmer. PULMONARY: Crackles and expiratory wheezes noted throughout. Chest rises and falls symmetric with respiration. Chest wall is nontender to palpation. GASTROINTESTINAL: Abdomen is soft, nontender, nondistended with bowel sounds in all 4 quadrants. : No CVA or suprapubic tenderness. SKIN: Warm and dry with lower extremities as stated above. NEUROLOGIC: He is alert and oriented x3. LABS: WBC is 20 with hemoglobin 11.1, hematocrit 36.1, and platelets of 304,000. INR is 1.38. Sodium 141, potassium 3.3, BUN is 28, creatinine 0.9 with a glucose of 180. Troponin is 0.053. CPK is 28. Chest x-ray reveals poor inspiration with left basilar atelectasis. EKG reveals sinus rhythm at a sinus tachycardia at a rate of 102. ASSESSMENT AND PLAN: 1. Acute hypoxemic respiratory failure. Likely secondary to pneumonia. Will treat the underlying infection. 2. Left lower lobe pneumonia. Blood and sputum cultures have been ordered. Will start broad spectrum antibiotics supplemental oxygen, and bronchodilator therapy. 3. Chest pain. Will order serial cardiac enzymes and EKGs. 4. History of chronic obstructive pulmonary disease. Will start bronchodilator therapy and supplemental oxygen. 5. Right lower extremity wound infection. Will culture the wound and start antibiotic therapy. Will also consult wound care. 6. Hypokalemia. Will replace the potassium. 7. Morbid obesity. Aware. 8. Chronic atrial fibrillation. Continue on eliquis 9. History of prostate cancer. Aware. Dictated by RIZWANA Davila for Shaneka Triplett MD cc: QuyenRIZWANA Rodriguez MD I performed a face to face encounter on the patient. I reviewed all labs and imaging on the patient. I agree with the H&P as dictated. MTDD
[2019-06-25] MEDS: DUONEB (A & A) INH SCH ×4 (15:39→23:25)
--- NOTE | 2019-06-25 16:22 | Diag Imaging Result Doc PS360 ---
EXAM: CT ANGIOGRM PULMONARY ARTERIES 06/25/2019 HISTORY: CP, sob, elevated ddimer, recent PICC placement TECHNIQUE: This exam was performed using automated exposure control, adjustment of mA or kV according to patient size, and/or use of iterative reconstruction technique. COMMENT: There is motion and beam hardening artifact. There is no evidence of central pulmonary emboli. There is volume loss and opacification of the left lower lobe. There is a nodule at the level of the minor fissure which was also present on the previous study of 11/17/2017. The left lower lobe opacity was not present previously. There are atelectatic changes in the right lower lobe which were not previously present. There is a noncalcified pulmonary nodule in the right apex laterally measuring 15 mm which was not previously present. There is no evidence of significant adenopathy. There are no abnormal fluid collections. There are spondylotic changes in the thoracic spine. 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 There is a PICC line on the right with its tip in the superior vena cava. IMPRESSION: 1. No definite evidence of pulmonary emboli. 2. Right lower lobe atelectasis and/or pneumonia. 3. Right apical pulmonary nodule which was not present on 11/17/2017. The possibility of a neoplastic lesion cannot be excluded. Electronically signed by Geovanni Medina 06/25/2019 4:20 PM
[2019-06-25] MEDS: LASIX PO SCH (16:26)
[2019-06-25] MEDS ORDERED: NS IV SCH (18:00)
[2019-06-25] MEDS ORDERED: CUBICIN IV SCH ×2 (18:00)
[2019-06-25 18:15] LABS: ALLEN TEST YES; BE 16.6 mmoll (-3.0-3.0); BLOOD TYPE ARTERIAL; HCO3-(ACT) 37.8 mmoll (20.0-26.0); METHB 0.8 % (0.0-1.5); O2HB 95.5 % (95.0-99.0); PO2(98.6) 102 mmHg (60-100); SAMPLE BLOOD; SAO2 97.6 % (95.0-100.0); THB 11.8 g/dL (11.5-17.4); pH(98.6) 7.41 (7.35-7.45)
[2019-06-25 18:17] LABS: MODALITY VENTIMASK; PCO2(98.6) 70 mmHg (35-45)
--- NOTE | 2019-06-25 18:35 | Diag Imaging Result Doc PS360 ---
EXAM: CHEST-PORTABLE HISTORY: dyspnea TECHNIQUE: Portable chest COMPARISON: 9:21 AM FINDINGS: Poor inspiration. The heart is not enlarged. The left hemidiaphragm is elevated. The appearance of the chest is unchanged from the prior exam. IMPRESSION: Stable exam Electronically signed by Jaswinder Freitas 06/25/2019 6:32 PM
[2019-06-25 18:39] LABS: URINE SOURCE CLEAN CATCH
[2019-06-25 18:53] LABS: BASO# 0.07 X1000 (0.0-0.2); BASO% 0.4 % (0.0-0.8); EOS# 1.87 X1000 (0.0-0.7); EOS% 9.5 % (0.0-10.0); HEMATOCRIT 35.6 % (42.0-52.0); HEMOGLOBIN 11.3 g/dL (14.0-18.0); IMM GRAN% 0.5 % (0.0-0.5); LYMPH# 1.25 X1000 (1.2-3.4); LYMPH% 6.4 % (20.5-51.1); MCH 29.6 PG (27-31); MCHC 31.7 g/dL (33-37); MCV 93.2 FL (81-99); MONO# 1.26 X1000 (0.11-0.59); MONO% 6.4 % (1.7-9.3); MPV 7.8 FL (7.4-10.4); NEUT# 15.13 X1000 (1.4-6.5); NEUT% 76.8 % (42.2-75.2); PLT 267 X1000 (130-400); RBC 3.82 XMIL (4.7-6.1); RDW 13.2 % (11.5-14.5); WBC 19.68 X1000 (4.8-10.8)
[2019-06-25] MEDS: CUBICIN 600 MG in NS 100 ML IV SCH (18:57)
[2019-06-25 19:08] LABS: INR 1.32; PROTIME 16.6 Seconds (11.0-16.0)
[2019-06-25 19:09] LABS: BILIRUBIN URINE NEGATIVE (NEGATIVE); BLOOD URINE NEGATIVE (NEGATIVE); COLOR YELLOW; GLUCOSE URINE NEGATIVE (NEGATIVE); KETONE URINE TRACE mg/dL (NEGATIVE); LEUKOCYTES URINE LARGE (NEGATIVE); NITRITE URINE NEGATIVE (NEGATIVE); PH URINE 6.5; PROTEIN URINE TRACE mg/dL (NEGATIVE); SP GRAVITY URINE 1.021; TURBIDITY URINE CLEAR (CLEAR); UROBILINOGEN URINE NORMAL (NORMAL)
[2019-06-25 19:09] LABS: PTT 32.9 Seconds (22.3-41.8)
[2019-06-25 19:10] LABS: UR EPITHELIAL CELLS <10 /HPF (<10); URINE BACTERIA NEGATIVE /HPF; URINE RBC <10 /HPF (<10); URINE WBC TNTC /HPF (<10)
[2019-06-25 19:23] LABS: AGAP 12; ALB/GLOB RATIO 0.8; ALBUMIN 3.2 g/dL (3.5-5.0); ALKALINE PHOSPHATASE 79 U/L (32-122); BUN 27 mg/dL (8-22); CALCIUM 8.9 mg/dL (8.8-10.2); CHLORIDE 93 mmol/L (98-107); COSMO 288; CREATININE 0.8 mg/dL (0.7-1.2); ESTIMATED GFR > 60; GLUCOSE 162 mg/dL (70-104); GOT 9 U/L (10-34); GPT 10 U/L (10-44); POTASSIUM 3.8 mmol/L (3.5-5.1); SODIUM 140 mmol/L (136-145); TCO2 35 mmol/L (25-35); TOTAL BILIRUBIN 0.59 mg/dL (0.20-1.00)
[2019-06-25] MEDS: ELIQUIS PO SCH (21:23)
[2019-06-25] MEDS: FLOMAX PO SCH (21:24)
[2019-06-26 03:59] LABS: BLOOD TYPE ARTERIAL; SAMPLE BLOOD
[2019-06-26 04:12] LABS: ALLEN TEST YES; BE 18.9 mmoll (-3.0-3.0); HCO3-(ACT) 39.7 mmoll (20.0-26.0); METHB 0.8 % (0.0-1.5); O2(CT) 14.9 mL/dL (15.0-23.0); PO2(98.6) 115 mmHg (60-100); SAO2 98.1 % (95.0-100.0); THB 10.9 g/dL (11.5-17.4); pH(98.6) 7.45 (7.35-7.45)
[2019-06-26 04:28] LABS: MODALITY BI PAP; PCO2(98.6) 66 mmHg (35-45)
[2019-06-26 05:13] LABS: BASO# 0.05 X1000 (0.0-0.2); BASO% 0.3 % (0.0-0.8); EOS# 1.78 X1000 (0.0-0.7); HEMATOCRIT 34.8 % (42.0-52.0); HEMOGLOBIN 10.4 g/dL (14.0-18.0); IMM GRAN# 0.06 X1000 (0.0-0.04); IMM GRAN% 0.4 % (0.0-0.5); LYMPH# 1.12 X1000 (1.2-3.4); LYMPH% 6.9 % (20.5-51.1); MCHC 29.9 g/dL (33-37); MCV 93.8 FL (81-99); MONO# 0.82 X1000 (0.11-0.59); MONO% 5.1 % (1.7-9.3); MPV 7.8 FL (7.4-10.4); NEUT% 76.3 % (42.2-75.2); PLT 261 X1000 (130-400); RBC 3.71 XMIL (4.7-6.1); WBC 16.23 X1000 (4.8-10.8)
[2019-06-26 05:37] LABS: MAGNESIUM 2.2 mg/dL (1.5-2.7); PHOSPHORUS 3.2 mg/dL (2.7-4.5)
[2019-06-26 05:41] LABS: AGAP 11; ALB/GLOB RATIO 0.8; ALKALINE PHOSPHATASE 73 U/L (32-122); BUN 24 mg/dL (8-22); CALCIUM 8.6 mg/dL (8.8-10.2); CHLORIDE 96 mmol/L (98-107); CK TOTAL 19 U/L (24-204); COSMO 294; CREATININE 0.8 mg/dL (0.7-1.2); ESTIMATED GFR > 60; GLUCOSE 146 mg/dL (70-104); GOT 8 U/L (10-34); GPT 9 U/L (10-44); POTASSIUM 3.7 mmol/L (3.5-5.1); SODIUM 144 mmol/L (136-145); TCO2 37 mmol/L (25-35); TOTAL BILIRUBIN 0.52 mg/dL (0.20-1.00)
[2019-06-26] MEDS: DUONEB (A & A) INH SCH ×5 (07:58→23:11)
--- NOTE | 2019-06-26 09:10 | Diag Imaging Result Doc PS360 ---
EXAM: CHEST-1 VIEW HISTORY: pneumonia TECHNIQUE: Single view COMPARISON: 06/25/2019 FINDINGS: The left hemidiaphragm is elevated. Central vascular distention with mild pulmonary edema remains. Heart is borderline mildly prominent. The overall appearance is similar to the prior exam. IMPRESSION: No interval improvement Electronically signed by Jaswinder Freitas 06/26/2019 9:07 AM
[2019-06-26] MEDS: VITAMIN D PO SCH (11:58)
[2019-06-26] MEDS: TOPROL XL PO SCH (11:58)
[2019-06-26] MEDS: PROTONIX PO SCH (11:58)
[2019-06-26] MEDS: ELIQUIS PO SCH ×2 (11:59→21:41)
[2019-06-26] MEDS: LASIX PO SCH ×2 (11:59→17:41)
[2019-06-26] MEDS: MAXIPIME 2 GM in NS 100 ML IV SCH (12:31)
[2019-06-26] MEDS: CUBICIN 600 MG in NS 100 ML IV SCH (17:41)
--- NOTE | 2019-06-26 18:01 | PROGRESS NOTE ---
DATE: 06/26/2019 SUBJECTIVE: The patient is sitting up in bed. He states that he would like something to drink. Yesterday he had an episode of choking when trying to swallow some food. OBJECTIVE: Vital Signs: Temperature 99 degrees, blood pressure 135/70, heart rate 84, respirations 22, O2 saturations 98% on Venturi mask. Intake 1.5 L. General: This is a morbidly obese male sitting up in bed in no acute distress. Heart: S1, S2 normal. Regular rate and rhythm. Lungs: Diminished breath sounds at the bases. No wheezing. No rales. Abdomen: Positive bowel sounds. Soft, nontender, nondistended. Extremities: The patient has an ulceration on the right lower extremity that is wrapped in a dressing. The patient also has chronic venous stasis. Neurologic: The patient is alert and oriented x3. LABS: White blood cell count 16, hemoglobin 10, hematocrit 34, platelets 261,000. ABG pH 7.45, pCO2 66, PO2 115, bicarb 39. Sodium 144, potassium 3.7, chloride 96, CO2 37, BUN 24, creatinine 0.8, glucose 146, calcium 8.6, AST 8, ALT 9, alkaline phosphatase 73. Chest x-ray shows mild pulmonary edema and central vascular congestion. ASSESSMENT AND PLAN: 1. Acute on chronic hypercapnic respiratory failure. The patient has pulmonary edema and a possible right lower lobe pneumonia. 2. Pneumonia. Continue with antibiotic therapy. 3. Right lower extremity wound infection. The wound culture so far is showing no growth. Will continue with wound care and antibiotic therapy. 4. Urinary tract infection. It showed mixed anuel. Will continue with antibiotic therapy. 5. Right lower lobe pneumonia. Continue on the current antibiotic regimen plus bronchodilator therapy and BIPAP at night. 6. Morbid obesity. Aware. 7. Benign prostatic hypertrophy. Continue on Flomax. 8. Atrial fibrillation. The patient is rate controlled. Continue on Toprol and Eliquis. cc: Shaneka Triplett MD MTDD
[2019-06-26] MEDS: FLOMAX PO SCH (21:41)
[2019-06-27] MEDS: MAXIPIME 2 GM in NS 100 ML IV SCH ×3 (01:43→23:50)
[2019-06-27 03:18] LABS: ALLEN TEST YES; BE 15.7 mmoll (-3.0-3.0); BLOOD TYPE ARTERIAL; HCO3-(ACT) 37.1 mmoll (20.0-26.0); METHB 0.5 % (0.0-1.5); O2(CT) 14.3 mL/dL (15.0-23.0); O2HB 94.3 % (95.0-99.0); PO2(98.6) 73 mmHg (60-100); SAMPLE BLOOD; SAO2 95.6 % (95.0-100.0); THB 10.7 g/dL (11.5-17.4); pH(98.6) 7.42 (7.35-7.45)
[2019-06-27 03:33] LABS: MODALITY VENTIMASK
[2019-06-27 03:34] LABS: PCO2(98.6) 66 mmHg (35-45)
--- NOTE | 2019-06-27 07:03 | Diag Imaging Result Doc PS360 ---
CHEST-1 VIEW - 06/27/2019 INDICATION: pneumonia COMPARISON: 06/26/2019 FINDINGS: Stable right PICC line in good position. Stable apparent left hemidiaphragm elevation. Stable cardiomegaly and pulmonary vascular congestion. Stable hazy infiltrate or atelectasis at the right lower lobe. No new infiltrates. IMPRESSION: No change from prior. Electronically signed by Ozzy Murphy 06/27/2019 7:01 AM
[2019-06-27 07:06] LABS: BASO# 0.03 X1000 (0.0-0.2); BASO% 0.2 % (0.0-0.8); EOS# 2.34 X1000 (0.0-0.7); HEMATOCRIT 35.7 % (42.0-52.0); HEMOGLOBIN 10.6 g/dL (14.0-18.0); IMM GRAN# 0.09 X1000 (0.0-0.04); IMM GRAN% 0.7 % (0.0-0.5); LYMPH# 1.17 X1000 (1.2-3.4); LYMPH% 8.5 % (20.5-51.1); MCH 28.2 PG (27-31); MCHC 29.7 g/dL (33-37); MCV 94.9 FL (81-99); MONO% 5.1 % (1.7-9.3); MPV 8.4 FL (7.4-10.4); NEUT# 9.43 X1000 (1.4-6.5); NEUT% 68.5 % (42.2-75.2); PLT 267 X1000 (130-400); RBC 3.76 XMIL (4.7-6.1); RDW 13.2 % (11.5-14.5); WBC 13.76 X1000 (4.8-10.8)
[2019-06-27 07:24] LABS: AGAP 8; BUN 19 mg/dL (8-22); CALCIUM 8.5 mg/dL (8.8-10.2); CHLORIDE 97 mmol/L (98-107); COSMO 294; CREATININE 0.9 mg/dL (0.7-1.2); ESTIMATED GFR > 60; GLUCOSE 146 mg/dL (70-104); MAGNESIUM 2.3 mg/dL (1.5-2.7); PHOSPHORUS 3.9 mg/dL (2.7-4.5); POTASSIUM 3.5 mmol/L (3.5-5.1); SODIUM 145 mmol/L (136-145); TCO2 40 mmol/L (25-35)
[2019-06-27] MEDS: DUONEB (A & A) INH SCH ×5 (08:05→23:12)
[2019-06-27] MEDS: LASIX PO SCH ×2 (09:20→16:24)
[2019-06-27] MEDS: TOPROL XL PO SCH (09:20)
[2019-06-27] MEDS: VITAMIN D PO SCH (09:20)
[2019-06-27] MEDS: PROTONIX PO SCH (09:21)
[2019-06-27] MEDS: ELIQUIS PO SCH ×2 (09:21→21:41)
[2019-06-27] MEDS: CUBICIN 600 MG in NS 100 ML IV SCH (16:21)
--- NOTE | 2019-06-27 16:39 | PROGRESS NOTE ---
DATE: 06/27/2019 Came in with chest pain, shortness of breath, 79-year-old morbidly obese gentleman with history of hypertension, prostate cancer status post radiation 2008, iron deficiency anemia, current treatment right lower extremity ulcer. He presented with EMS from [facility] where he was a resident. Complains of chest pain. States he had shortness of breath for a few days despite continuous O2 at 4 L per nasal cannula. States that shortness of breath started with a little bit activity but over last 24-36 hours progressed to shortness of breath at rest. He has sudden onset of chest pain started a few hours prior to coming to the emergency room, felt like somebody stabbing him with a knife in the chest. His chest is tender to palpation although he states sharp stabbing pain is not affected by palpation. He was given nitroglycerin in the detention prior to come to the emergency room stated did not change his pain. He was diagnosed with pneumonia earlier in the week and been on Zithromax, given nitroglycerin. PAST MEDICAL HISTORY: 1. Prostate cancer status post radiation 2008. 2. Benign prostatic hypertrophy. 3. Hypertension. 4. Iron deficiency anemia. 5. Seasonal allergies. 6. Morbid obesity. 7. Chronic bilateral lower extremity edema. 8. Atrial fibrillation, chronic anticoagulation with Eliquis. 9. Recent right lower extremity ulceration on IV daptomycin. PAST SURGICAL HISTORY: 1. Left hip repair in 2013. 2. Right knee replacement. 3. Left shoulder surgery. 4. Left elbow surgery. ADMISSION DIAGNOSIS: 1. They found a left lower lobe pneumonia treating with antibiotics and supplementary O2. 2. He has chronic obstructive pulmonary disease, chronic hypoxemia on O2. 3. Leukocytosis patient secondary to his pneumonia, patient receiving daptomycin. He seems to clinically feel a little better. The chest pain sounds like it is not cardiac in origin. EXAM: Temperature 98.5 degrees, pulse 88, respirations 18, blood pressure 111/57. Pupils are equal, round.Lungs: Clear in all lung lambert. Cardiovascular: Regular rhythm and rate without murmur or S3. Urine output was 2700 mL. Chest x-ray no change from prior, stable right PICC line in good position, stable apparent left hemidiaphragm elevation, stable cardiomegaly and pulmonary vascular congestion, stable hazy infiltrate and atelectasis at the right lower lobe. No new infiltrate. ASSESSMENT AND PLAN: 1. Acute on chronic hypercapnic respiratory failure. Patient has pulmonary edema, possibly right lower lobe pneumonia, treating for pneumonia. 2. Pneumonia. Continue present antibiotics. 3. Right lower extremity wound infection. Wound culture shows there is no growth. Continue his wound care and antibiotic therapy. 4. Urinary tract infection with mixed anuel. Continue antibiotic therapy. 5. Right lower lobe pneumonia. Patient will continue his antibiotic regimen and bronchodilator therapy, BiPAP at night, supplementary oxygen. 6. Morbid obesity. 7. Benign prostatic hypertrophy. 8. Atrial fibrillation, rate seems to be controlled. Review his orders is on Flomax 0.4 mg a day, Eliquis 2.5 mg b.i.d., daptomycin 600 mg IV q.24 hours and cefepime 2 g IV q.12, metoprolol 25 mg daily, Protonix 40 mg a day. His lab from this morning white count down to 13,760, hematocrit 35, hemoglobin 10, platelet count 267,000. Sodium 145, potassium 3.5, chloride 97, BUN 19, creatinine 0.9. cc: Parveen Emerson MD
[2019-06-27] MEDS: FLOMAX PO SCH (21:41)
[2019-06-28] MEDS: DUONEB (A & A) INH SCH ×5 (08:16→23:26)
[2019-06-28] MEDS: PROTONIX PO SCH (10:53)
[2019-06-28] MEDS: TOPROL XL PO SCH (10:53)
[2019-06-28] MEDS: ELIQUIS PO SCH ×2 (10:53→20:55)
[2019-06-28] MEDS: VITAMIN D PO SCH (10:54)
[2019-06-28] MEDS: LASIX PO SCH ×2 (10:54→16:32)
[2019-06-28] MEDS: MAXIPIME 2 GM in NS 100 ML IV SCH (11:15)
--- NOTE | 2019-06-28 14:07 | PROGRESS NOTE ---
DATE: 06/28/2019 SUBJECTIVE: Mr. Vizcaino reports that he still has a little bit of a cough. He ate almost all of his breakfast and lunch. His bowels are moving okay. He feels pretty weak but even in the half-way, they had to use a hoist to get him to the wheelchair. I think he feels like he is about ready to go back to the half-way. He is a long-term resident of [facility] so hopefully tomorrow. OBJECTIVE: Temperature 98.7 degrees, pulse 79, respirations 16, blood pressure 133/60. Pupils are equal and round. Lungs are clear in all lung lambert. Cardiovascular Examination: Regular rhythm and rate without murmur or S3. Abdomen is soft. Skin is warm and dry. ASSESSMENT AND PLAN: 1. Acute on chronic hypercapnic respiratory failure. The patient has pulmonary edema, right lower lobe pneumonia which appears to have been treated. Continue present antibiotics. 2. Right lower extremity wound infection. Wound culture showed no growth. Continue topical care. 3. Urinary tract infection, mixed anuel. 4. Right lower lobe pneumonia. Air and gas exchange better. 5. Morbid obesity. 6. Benign prostatic hypertrophy. 7. Atrial fibrillation. Rate is controlled. 8. General weakness and deconditioning. He has been confined to the bed and wheelchair for a couple of years now. Hope to get him back to [facility] tomorrow. 9. Reviewed his orders. Reviewed his labs. I do not see any change. cc: Parveen Emerson MD
--- NOTE | 2019-06-28 15:43 | Extremity Venous Study ---
PROCEDURE NAME: Venous U/S Bilateral Legs - 06/25/2019 DATE: 06/26/2019. REFERRING PRACTITIONER: RIZWANA Davila READING PHYSICIAN: Dr. Smith. GROUND CREWMAN: Silas. INDICATIONS: Leg swelling. COMPARISON STUDY: 11/17/2018. FINDINGS: The deep and superficial veins of both lower extremities were imaged throughout their course. They are compressible and patent without thrombus. INTERPRETATION: No DVT or SVT of either lower extremity. This is unchanged from the prior study. cc: MD Quyen Jennings CRNP
[2019-06-28] MEDS: CUBICIN 600 MG in NS 100 ML IV SCH (16:30)
[2019-06-28] MEDS: FLOMAX PO SCH (20:55)
[2019-06-29] MEDS: MAXIPIME 2 GM in NS 100 ML IV SCH (00:18)
[2019-06-29] MEDS: DUONEB (A & A) INH SCH (08:48)
[2019-06-29] MEDS: LASIX PO SCH (09:21)
[2019-06-29] MEDS: ELIQUIS PO SCH (09:22)
[2019-06-29] MEDS: TOPROL XL PO SCH (09:22)
[2019-06-29] MEDS: PROTONIX PO SCH (09:22)
[2019-06-29] MEDS: VITAMIN D PO SCH (09:22)
--- NOTE | 2019-06-29 09:47 | DISCHARGE SUMMARY ---
ADMISSION DATE: 06/25/2019 DISCHARGE DATE: 06/29/2019 HISTORY AND HOSPITAL COURSE: Followed by Dr. Wilfredo Rodriges. Presented with chest pain, shortness of breath. A 79-year-old, morbidly obese gentleman with history of hypertension, prostate cancer, status post radiation in 2008, iron-deficiency anemia, and current treatment of right lower extremity ulcer, presents by EMS from [facility], where he was a resident, complaining of chest pain. He had shortness of breath for a few days despite his continuous O2 at 4 L. He states shortness of breath started just getting out of breath with activity, but later just seemed to be short of breath at rest. Stated sudden onset of chest pain a few hours prior to coming to the emergency room. [place] like somebody was stabbing him with a knife in the chest. His chest was tender to palpation, although he states the sharp stabbing pain is not affected by palpation. He was given some nitroglycerin in the skilled nursing, and did not really help his pain. According to the skilled nursing, he was diagnosed with pneumonia earlier in the week, and put on Zithromax. PAST MEDICAL HISTORY: 1. Prostate cancer, status post radiation in 2008. 2. Benign prostatic hypertrophy. 3. Hypertension. 4. Iron-deficiency anemia. 5. Seasonal allergies. 6. Morbid obesity. 7. Chronic bilateral lower extremity edema. 8. Atrial fibrillation with chronic anticoagulation, on Eliquis. 9. Recent right lower extremity ulceration, was on IV daptomycin. PAST SURGICAL HISTORY: 1. Left hip repair in 2013. 2. Right knee replacement. 3. Left shoulder surgery. 4. Left elbow surgery. ADMISSION DIAGNOSES: 1. Left lower lobe pneumonia, and was started on intravenous antibiotics. 2. Chest pain, which sounds like chest wall pain. No sign of cardiac ischemia. 3. Dyspnea related to pneumonia and underlying chronic hypoxemia. 4. Chronic obstructive pulmonary disease. He is on chronic oxygen per nasal cannula at 4 liters. 5. Leukocytosis. Currently was receiving some daptomycin when he came to the hospital. 6. Wound, right lower extremity, improving. 7. Hypokalemia. This was supplemented. The patient has not been able to walk for a while. He has, I think, a lift, and he gets in the wheelchair. He had a pulmonary arteriogram. No definite evidence of pulmonary emboli. Right lower lobe atelectasis and pneumonia was seen. Right apical pulmonary nodule was present back on 11/17/2018, and could not rule out a neoplastic lesion. Followup chest x-ray on 06/26/2019: No interval improvement. Left hemidiaphragm elevated. He has central vascular distention, pulmonary edema. Followup chest x-ray on 06/27/2019 was about the same. He had a PICC line, which was in good position. He felt he wanted to go back to [facility] on 06/29/2019. Will let him continue his DuoNebs. He is on Eliquis 2.5 mg b.i.d., vitamin D 2000 units p.o. daily, we can stop the daptomycin, Lasix 80 mg p.o. daily and then I think he takes 40 mg in the afternoon, milk of magnesia 30 mL every a.m. p.r.n. constipation, Toprol-XL 25 mg a day, Protonix 40 mg a day, and Flomax 0.4 mg at bedtime. We will discharge him back to [facility] today. Will keep him on 4 L of O2 per nasal cannula. Encourage him to get out of bed. cc: Parveen Emerson MD
--- NOTE | 2019-06-29 10:13 | Diag Imaging Result Doc PS360 ---
EXAM: CHEST-PORTABLE 06/29/2019 HISTORY: pneumonia TECHNIQUE: AP portable upright at 1001 COMMENT: There is elevation of the left hemidiaphragm as there was on 06/27/2019 and 10/13/2018. There is a PICC line with its tip in the superior vena cava. Compared to the previous examination, there has been some clearing of ill-defined opacity over the right base. IMPRESSION: Improved pneumonia right lower lobe. Electronically signed by Geovanni Medina 06/29/2019 10:11 AM
[2019-06-29 11:03] VITALS: BP 120/53
== END 2019-06-29 12:35 | DRG 177 ==
LOC: SUPCPDRO → ED 09:02 → SUATTDRO 12:28 → EDIPHOLD 12:28 → 4N 13:47
PROVIDERS: ATTEND Emergency Medicine

== ENCOUNTER 2019-08-20 04:17 | Inpatient (IN) ==
[2019-08-20 05:07] LABS: INR 1.11; PROTIME 14.5 Seconds (11.0-16.0)
[2019-08-20 05:37] LABS: BASO# 0.01 X1000 (0.0-0.2); EOS# 0.04 X1000 (0.0-0.7); EOS% 0.2 % (0.0-10.0); HEMATOCRIT 35.3 % (42.0-52.0); HEMOGLOBIN 10.8 g/dL (14.0-18.0); IMM GRAN# 0.07 X1000 (0.0-0.04); IMM GRAN% 0.3 % (0.0-0.5); LYMPH# 0.73 X1000 (1.2-3.4); LYMPH% 3.6 % (20.5-51.1); MCH 28.4 PG (27-31); MCHC 30.6 g/dL (33-37); MCV 92.9 FL (81-99); MONO# 0.92 X1000 (0.11-0.59); MONO% 4.6 % (1.7-9.3); MPV 8.8 FL (7.4-10.4); NEUT# 18.35 X1000 (1.4-6.5); NEUT% 91.3 % (42.2-75.2); PLT 171 X1000 (130-400); RDW 14.2 % (11.5-14.5); WBC 20.12 X1000 (4.8-10.8)
[2019-08-20 05:53] LABS: PTT 17.5 Seconds (22.3-41.8)
[2019-08-20 06:08] LABS: AGAP 13; ALB/GLOB RATIO 1.1; ALBUMIN 3.5 g/dL (3.5-5.0); ALKALINE PHOSPHATASE 72 U/L (32-122); BUN 29 mg/dL (8-22); CALCIUM 8.7 mg/dL (8.8-10.2); CHLORIDE 92 mmol/L (98-107); CK PROFILE 57 U/L (24-204); COSMO 291; CREATININE 0.9 mg/dL (0.7-1.2); ESTIMATED GFR > 60; GLUCOSE 167 mg/dL (70-104); GOT 11 U/L (10-34); GPT 6 U/L (10-44); POTASSIUM 3.8 mmol/L (3.5-5.1); SODIUM 141 mmol/L (136-145); TCO2 36 mmol/L (25-35); TOTAL BILIRUBIN 1.25 mg/dL (0.20-1.00); TOTAL PROTEIN 6.8 g/dL (6.3-8.3)
[2019-08-20] MEDS ORDERED: ZOSYN 4.5 GM in NS 100 ML IV ONE (06:30)
--- NOTE | 2019-08-20 06:38 | PROVIDER DOCUMENTATION ---
HPI-General Adult - General Chief Complaint: Shortness of Breath Stated Complaint: sob Time Seen by Provider: 08/20/19 04:20 Source: patient, EMS Allergies/Adverse Reactions: Patient Allergies Allergy/AdvReac Type Severity Reaction Status Date / Time ibuprofen Allergy SWELLING Verified 01/21/16 12:35 vancomycin Allergy Unknown Verified 06/25/19 09:44 Home Medications: Home Medication List Medication Instructions Recorded Confirmed Last Taken Type Furosemide [Lasix] 40 mg PO DAILY tablet 10/26/18 08/20/19 06/24/19 15:38 Rx Albuterol Sulfate Inhaler 1 puff INH [id number] 06/25/19 08/20/19 06/24/19 19:15 History [Ventolin Hfa] Apixaban [Eliquis] 2.5 mg PO BID 06/25/19 08/20/19 06/25/19 07:04 History Cholecalciferol (Vitamin D3) 2,000 unit PO DAILY 06/25/19 08/20/19 06/25/19 07:04 History [Vitamin D3] Furosemide [Lasix] 80 mg PO DAILY 06/25/19 08/20/19 06/25/19 07:04 History Iron,Carb/Vit C/Vit B12/Folic 1 ea PO DAILY 06/25/19 08/20/19 06/25/19 07:04 History [Iron 100 Plus Tablet] Lanolin Cream [Lantiseptic Cream] 1 applic TOP Q12H 06/25/19 08/20/19 06/24/19 19:15 History Magnesium Hydroxide [Milk of 30 ml PO QAM PRN 06/25/19 08/20/19 Unknown History Magnesia] Metoprolol Succinate E.r. [Toprol 25 mg PO DAILY 06/25/19 08/20/19 06/25/19 07:04 History Xl] Pantoprazole [Protonix] 40 mg PO QAM 06/25/19 08/20/19 06/25/19 05:11 History Tamsulosin [Flomax] 0.4 mg PO QHS 06/25/19 08/20/19 Unknown History Albuterol 2.5MG/Ipratrop 0.5MG 3 ml INH RTQ4H.WA neb 06/29/19 08/20/19 Unknown Rx [Duoneb (A & A)] - History of Present Illness -Gen Adult Nature of Presenting Problems: A 79 y/o male presents with c/o SOB and CP. The symptoms started around 23 hours and progressive worse. The CP is retrosternal and goes to the back. Denies any fever or pain or chills. Has R leg wound vac. Review of Systems - Adult - REVIEW OF SYSTEMS - ADULT Constitutional: denies: no symptoms reported Eyes: denies: no symptoms reported Ears, Nose, Mouth & Throat: denies: no symptoms reported Cardiovascular: reports: see HPI Respiratory: reports: see HPI Gastrointestinal: denies: no symptoms reported Genitourinary: denies: no symptoms reported Musculoskeletal: denies: no symptoms reported Integumentary: denies: no symptoms reported Neurological: denies: no symptoms reported Psychiatric: denies: no symptoms reported Endocrine: denies: no symptoms reported Hematologic/Lymphatic: denies: no symptoms reported Allergic/Immunologic: denies: no symptoms reported Past History - Adult - PAST MEDICAL HISTORY-ADULT Review of Records: reports: Nursing Assessment Review, Medications Reviewed, Social history reviewed & non-contributory. Major Childhood Illnesses: reports: denies history Cardiovascular: reports: A-Fib, HTN (no meds) Respiratory: reports: COPD Gastrointestinal: reports: GERD Obstetrical/Gynecological: reports: denies history Genitourinary: reports: prostate cancer Musculoskeletal: reports: chronic pain (chronic knee pain) Neurological: reports: denies history Endocrine/Immune: reports: anemia Other Conditions: reports: denies history - PRIOR SURGERIES/PROCEDURES Surgical/Procedure History: reports: orthopedic (extremity) (R knee; L leg; L foot), joint replacement (TKR), other (hip Sx) - IMMUNIZATION STATUS Childhood Immunizations: See Nurse Assessment Flu Vaccine: See Nurse Assessment - FAMILY HISTORY Family History: reviewed, not pertinent Physical Exam-General - PHYSICAL EXAM-ADULT Initial Vital Signs Reviewed: Yes - CONSTITUTIONAL General Appearance: appears well, alert, mild distress - EYES Eyes: PERRL/EOMI - HEAD, EARS, NOSE, MOUTH & THROAT HENMT: normocephalic/atraumatic, normal ENT inspection, TMs normal. negative: moist mucous membranes - NECK Neck: supple - RESPIRATORY Respiratory: decreased breath sounds, rhonchi - CARDIOVASCULAR Cardiovascular: regular rate, rhythm, no JVD, no murmur - GASTROINTESTINAL (ABDOMEN) Abdominal Exam: non tender, soft - MUSCULOSKELETAL Back Exam: normal inspection Extremity: pedal edema, other (R anterior midcalf wound vac) Peripheral Pulses: radial (R): 2+, radial (L): 2+ - SKIN Integumentary: normal color, warm/dry - NEUROLOGIC Neurologic: grossly normal, no motor/sensory deficits - PSYCHIATRIC Psych/Mental Status: normal mood/affect, normal thought process Progress - PLAN OF CARE/RESULTS Progress/Plan/Lab Results: Vital Signs - 8 hr 08/20/19 04:27 08/20/19 04:30 08/20/19 04:34 Temperature 98.6 F Pulse Rate 93 H Respiratory Rate 22 Blood Pressure 177/84 177/84 151/81 O2 Sat by Pulse Oximetry 100 99 98 08/20/19 04:45 08/20/19 05:00 08/20/19 05:15 Temperature Pulse Rate Respiratory Rate 27 H 27 H Blood Pressure O2 Sat by Pulse Oximetry 97 100 97 08/20/19 05:30 08/20/19 05:34 08/20/19 05:45 Temperature Pulse Rate Respiratory Rate 26 H 50 H 42 H Blood Pressure 120/93 O2 Sat by Pulse Oximetry 92 L 91 L 93 L 08/20/19 06:00 08/20/19 06:03 Temperature Pulse Rate Respiratory Rate 24 23 Blood Pressure 125/59 O2 Sat by Pulse Oximetry 98 97 Laboratory Results - last 24 hr 08/20/19 08/20/19 08/20/19 04:45 04:59 04:59 WBC 20.12 H RBC 3.80 L Hgb 10.8 L Hct 35.3 L MCV 92.9 MCH 28.4 MCHC 30.6 L RDW Std Deviation 14.2 Plt Count 171 MPV 8.8 Immature Gran % (Auto) 0.3 Neut % (Auto) 91.3 H Lymph % (Auto) 3.6 L Kleberg % (Auto) 4.6 Eos % (Auto) 0.2 Baso % (Auto) 0.0 Immature Gran # (Auto) 0.07 H Neut # (Auto) 18.35 H Lymph # (Auto) 0.73 L Kleberg # (Auto) 0.92 H Eos # (Auto) 0.04 Baso # (Auto) 0.01 PT 14.5 INR 1.11 PTT (Actin FS) 17.5 L Sodium Potassium Chloride Carbon Dioxide Anion Gap BUN Creatinine Estimated GFR/1.73 m2 BUN/Creatinine Ratio Glucose Calculated Osmolality Calcium Total Bilirubin AST ALT Alkaline Phosphatase Creatine Kinase Troponin T Total Protein Albumin Globulin Albumin/Globulin Ratio Plasma Lactate 1.2 08/20/19 08/20/19 04:59 04:59 WBC RBC Hgb Hct MCV MCH MCHC RDW Std Deviation Plt Count MPV Immature Gran % (Auto) Neut % (Auto) Lymph % (Auto) Kleberg % (Auto) Eos % (Auto) Baso % (Auto) Immature Gran # (Auto) Neut # (Auto) Lymph # (Auto) Kleberg # (Auto) Eos # (Auto) Baso # (Auto) PT INR PTT (Actin FS) Sodium 141 Potassium 3.8 Chloride 92 L Carbon Dioxide 36 H Anion Gap 13 BUN 29 H Creatinine 0.9 Estimated GFR/1.73 m2 > 60 BUN/Creatinine Ratio 32 Glucose 167 H Calculated Osmolality 291 Calcium 8.7 L Total Bilirubin 1.25 H AST 11 ALT 6 L Alkaline Phosphatase 72 Creatine Kinase 57 Troponin T 0.055 Total Protein 6.8 Albumin 3.5 Globulin 3.3 Albumin/Globulin Ratio 1.1 Plasma Lactate Orders Category Date Time Status Cardiac Monitoring DIRECTED Care 08/20/19 04:26 Active IV Insertion ORDERED Care 08/20/19 04:26 Completed Notify MD of + Sepsis Screen NOW Care 08/20/19 04:26 Active Notify Physician As Ordered Care 08/20/19 04:26 Active CHEST-1 VIEW [RAD] Stat Exams 08/20/19 04:26 Taken BLOOD CULTURE [BLDCUL] Stat Lab 08/20/19 06:15 Results CBC WITH DIFF [HEME] Stat Lab 08/20/19 04:59 Completed CK PROFILE [SP CHEM] Stat Lab 08/20/19 04:59 Completed COMPREHENSIVE METABOLIC PANEL [CHEM] Stat Lab 08/20/19 04:59 Completed LACTATE, PLASMA [CHEM] Q3H Lab 08/20/19 04:59 Completed LACTATE, PLASMA [CHEM] Q3H Lab 08/20/19 07:30 Uncollected LACTATE, PLASMA [CHEM] Q3H Lab 08/20/19 10:30 Uncollected PROTIME WITH INR [COAG] Stat Lab 08/20/19 04:45 Completed PTT [COAG] Stat Lab 08/20/19 04:45 Completed TROPONIN T Stat Lab 08/20/19 04:59 Completed URINALYSIS W/POSS RFLX CULT [URINALYSIS] Stat Lab 08/20/19 06:37 Ordered Piperacillin/Tazobactam [Zosyn] 4.5 gm Med 08/20/19 06:30 Active 0.9% Sodium Chloride Inj [Ns] 100 ml IV NOW Oxygen Device Stat Oth 08/20/19 04:26 Completed EKG [EKG] Stat Ther 08/20/19 04:18 Ordered Result Diagrams: 08/20/19 04:59 08/20/19 04:59 - CONSULTS/PCP/HOSPITALIST Notification #1 *Consult/PCP/Hospitalist*: d/w RIZWANA Kennedy, admit to Dr Acevedo Time Discussed: 08:10 Consult Disposition: Admit Departure - Departure Date of Disposition Decision: 08/20/19 Time of Disposition Decision: 07:54 DIAGNOSIS: Chest pain, Leucocytosis, Dyspnea, Shortness of breath, Sepsis Disposition: ADMITTED INPATIENT 09 Certified Medical Emergency: Emergent Condition: Stable Referrals and Follow-Ups: Wilfredo Moser [Primary Care Provider] - - Critical Care Note This patient required my direct & personal management of CC.: No Attestation - Physician/ PAULETTE Attestation Patient care was provided by Advanced Practice Provider:: No The physician spent face to face time with patient:: Yes Advanced Practice Provider documentation review:: Supervising physician onsite and consulted in the evaluation and care of this patient. The physician did have a face to face encounter with the patient.
[2019-08-20 06:41] LABS: URINE SOURCE CATH
[2019-08-20 06:43] LABS: BILIRUBIN URINE NEGATIVE (NEGATIVE); BLOOD URINE NEGATIVE (NEGATIVE); COLOR YELLOW; GLUCOSE URINE NEGATIVE (NEGATIVE); KETONE URINE NEGATIVE (NEGATIVE); LEUKOCYTES URINE NEGATIVE (NEGATIVE); NITRITE URINE NEGATIVE (NEGATIVE); PROTEIN URINE 50 mg/dL (NEGATIVE); SP GRAVITY URINE 1.022; TURBIDITY URINE CLEAR (CLEAR); UROBILINOGEN URINE NORMAL (NORMAL)
[2019-08-20 06:45] LABS: UR EPITHELIAL CELLS <10 /HPF (<10); URINE BACTERIA NEGATIVE /HPF; URINE WBC <10 /HPF (<10)
--- NOTE | 2019-08-20 08:00 | EKG Report ---
Test Performed on : 08/20/2019 04:28:02 AM Test Reason : cp Blood Pressure : / mmHG Vent. Rate : 094 BPM Atrial Rate : 094 BPM P-R Int : 182 ms QRS Dur : 102 ms QT Int : 354 ms P-R-T Axes : 077 -05 037 degrees QTc Int : 442 ms Normal sinus rhythm. Normal ECG When compared with ECG of 25-JUN-2019 10:12, (Unconfirmed) aberrant conduction. is no longer present Unconfirmed Result
--- NOTE | 2019-08-20 08:05 | Diag Imaging Result Doc PS360 ---
CHEST-1 VIEW - 08/20/2019 INDICATION: possible sepsis COMPARISON: 06/29/2019 FINDINGS: Stable left hemidiaphragm elevation. Stable severe cardiomegaly and pulmonary vascular congestion. There is probably some mild hazy interstitial pulmonary edema in the lung bases. No large pleural effusion. IMPRESSION: Congestive heart failure. Electronically signed by Ozzy Murphy 08/20/2019 8:03 AM
[2019-08-20] MEDS ORDERED: MILK OF MAGNESIA PO PRN (10:06)
[2019-08-20] MEDS ORDERED: LASIX IV ONE (10:08)
[2019-08-20] MEDS: DUONEB (A & A) INH SCH ×4 (11:15→23:00)
[2019-08-20] MEDS: ELIQUIS PO SCH ×2 (11:27→20:44)
[2019-08-20] MEDS ORDERED: ZYVOX PO SCH (12:00)
[2019-08-20] MEDS ORDERED: MAXIPIME 2 GM/NS 2 GM/100 ML IVPB IV SCH (12:00)
[2019-08-20] MEDS: LANTISEPTIC CREAM TOP SCH ×2 (16:53→20:45)
[2019-08-20] MEDS: PROTONIX PO SCH (16:53)
[2019-08-20] MEDS: MAXIPIME 2 GM/NS 2 GM/100 ML IVPB IV SCH (18:41)
[2019-08-20] MEDS: FLOMAX PO SCH (20:44)
[2019-08-20] MEDS: ZYVOX PO SCH (20:44)
--- NOTE | 2019-08-21 00:21 | HISTORY AND PHYSICAL ---
CHIEF COMPLAINT: Shortness of breath. HISTORY OF PRESENT ILLNESS: This is a 79-year-old gentleman with a prior history of atrial fibrillation, BPH, COPD on home O2 at 4 L, hypertension, who presented to the emergency room complaining of progressive shortness of breath over the last 1 to 2 days. He also complains of some chest pain that he says goes through to his back. This is present on coughing and deep breathing and it can be reproduced with palpation. He denied any fever or chills. He does have an ulcer to his right lower extremity and he does have a wound VAC in place. He states that his leg has been throbbing. It has been burning and tingling and he feels that it is more red than normal. Chest x-ray revealed congestive heart failure. He is noted to have a white count of 20. PAST MEDICAL HISTORY: 1. Prostate cancer, status post radiation 2008. 2. Enlarged prostate. 3. Hypertension. 4. Iron deficiency anemia. 5. Morbid obesity. 6. Chronic bilateral lower extremity edema. 7. Atrial fibrillation with chronic anticoagulation with Eliquis. 8. Chronic right lower extremity ulceration with wound VAC in place. PAST SURGICAL HISTORY: Left hip repair 2013, right knee replacement, left shoulder surgery, left elbow surgery. SOCIAL HISTORY: He is a resident of long-term care facility. Denies alcohol, tobacco, or illicit drug use. FAMILY HISTORY: Mother had hypertension. Father hypertension and both had heart disease and kidney disease. ALLERGIES: Ibuprofen and vancomycin. HOME MEDICATIONS: A list will be obtained by the nursing staff and once verified will be restarted as appropriate. REVIEW OF SYSTEMS: Discussed with patient with pertinent positives stated in the HPI. He denied any syncope or dizziness, any palpitations, a productive cough, any fever or chills, any nausea, vomiting, diarrhea, constipation, black or bloody vomitus or stools, hematuria, dysuria, frequency, urgency. PHYSICAL EXAMINATION: GENERAL: This is a 79-year-old gentleman who is lying on the bed in no distress. VITAL SIGNS: Blood pressure is 115/63 with a heart rate of 87, respirations 18, temperature 98.3 degrees oral with O2 saturations 96% to 99% on 4 L nasal cannula. HEENT: Head is normocephalic, atraumatic. Mucous membranes are moist. NECK: Supple with trachea midline. CARDIOVASCULAR: Regular rate and rhythm. S1 and S2 appreciated. He has bilateral lower extremity edema. PULMONARY: Breath sounds with wheezes scattered throughout. Chest rises and falls symmetric with respiration. GASTROINTESTINAL: Abdomen is soft, nontender, nondistended with bowel sounds in all 4 quadrants. NEUROLOGIC: He is alert and oriented. SKIN: Warm and dry. He does have signs of chronic venous stasis to his lower extremities. Right lower extremity does have a mid zimmer wound VAC. There is purulent drainage noted. There is redness, warmth, and tenderness. LABORATORIES: WBC is 20 with hemoglobin 10.8, hematocrit 35.3 and platelets 171,000. Sodium 141, potassium 3.8, BUN 29, creatinine 0.9 with a glucose of 167. ProBNP is 1558. Lactate is 0.8. Urinalysis is essentially negative. Urine culture and blood cultures are pending. Chest x-ray revealed congestive heart failure. ASSESSMENT: 1. Cellulitis, purulent drainage noted to right lower extremity. We will consult Surgery. We will consult Wound Care. Try to get a wound C and S. Antibiotic coverage of cefepime and Zyvox. I did discuss this patient with Dr. Siegel, Infectious Disease, and antibiotics were recommended per him. 2. Congestive heart failure. We will give Lasix IV. Monitor I and O with daily weights. 3. History of prostate cancer status post radiation 2008 with enlarged prostate. We will continue home medications. 4. Hypertension. 5. Iron deficiency anemia. We will continue iron supplement. 6. History of atrial fibrillation, on chronic anticoagulation with Eliquis. We will continue. At present, he is in sinus rhythm. 7. Morbid obesity. 8. Chronic obstructive pulmonary disease, on chronic O2 at 4 L. PLAN: The patient will be admitted to the hospital. He will be placed on telemetry. We will identify his home medications and continue as appropriate. We will order an airbed. Strict I and O. Blood cultures and urine culture are pending. Antibiotics as per Dr. Siegel recommendation of cefepime and Zyvox and then any further antibiotics will be culture driven. We will identify his home medications and continue these as appropriate. We will consult Wound Care. Recheck a CBC and CMP in the morning. DuoNeb q.4 hours with q.2 hours p.r.n. Of course we will continue his Flomax. Further treatments pending hospital course. Patient was discussed with Dr. Lopez. Dictated by RIZWAAN Davila for Donato Lopez MD cc: RIZWANA Davila MD
[2019-08-21] MEDS: MAXIPIME 2 GM/NS 2 GM/100 ML IVPB IV SCH ×2 (06:01→17:37)
[2019-08-21] MEDS: LANTISEPTIC CREAM TOP SCH ×3 (06:01→21:53)
--- NOTE | 2019-08-21 06:35 | GENERAL SURGERY CONSULTATION ---
DATE: 08/21/2019 REQUESTING PHYSICIAN: Hospitalist. REASON FOR CONSULTATION: Right leg wound. HISTORY OF PRESENT ILLNESS: A 79-year-old gentleman who initially presented with shortness of breath. He has a past medical history of atrial fib, BPH, COPD, home O2 dependency, and hypertension, who came to the emergency department having shortness of breath for 1 to 2 days. He has had some chest pain going to his back. It should be noted that he has had a wound VAC to his right lower extremity which he says was started by Dr. Rodriges while he was at [place]. He has been in a rehab facility for a while, and they have been doing the wound care changes there. He is still having some drainage from the area. I was asked to weigh an opinion about the wound VAC. I removed the wound VAC at the bedside. There was a combination of serous fluid and purulence that did come out. The patient otherwise is doing okay. PAST MEDICAL HISTORY: 1. History of prostate cancer. 2. BPH. 3. Hypertension. 4. Iron deficiency anemia. 5. Morbid obesity. 6. Chronic bilateral lower extremity edema. 7. Atrial fibrillation on Eliquis. 8. Chronic wound right lower extremity. PAST SURGICAL HISTORY: Includes left hip repair, right knee replacement, left shoulder surgery, left elbow surgery, and wound VAC to the right leg. SOCIAL HISTORY: Resident of long-term nursing facility. FAMILY HISTORY: Positive for hypertension. ALLERGIES: Ibuprofen and vancomycin. HOME MEDICATIONS: Reviewed. Of note, he is on Eliquis. The hospitalists have also put him on Zyvox. REVIEW OF SYSTEMS: A full 10 point review of systems obtained, and negative except as specified in HPI. PHYSICAL EXAMINATION: Vital Signs: Patient is currently afebrile. Vital signs stable. General: No acute distress. Alert and interactive male looks stated age. HEENT: Normocephalic, atraumatic. Pupils equal, round, and reactive to light. Mucous membranes moist. Oropharynx benign. Neck: Supple. Trachea midline. Cardiovascular: Somewhat irregular. Lungs: Grossly clear, but on O2. Abdomen: Soft. Nontender. Nondistended. Extremities: Wound noted to right lower extremity. Wound VAC removed. Small less than 1 cm hole noted with expressible fluid at the wound. There is some chronic irritation noted at the skin. Swelling noted to the whole leg. Skin: As noted above. Vascular: All extremities perfused. Neurologic: Grossly intact. LABORATORY: White blood cell count is 20, and hematocrit 35. Remainder of labs reviewed. ASSESSMENT AND PLAN: A 39-year-old gentleman with shortness of breath and multiple medical comorbidities, and cellulitis of the right leg. 1. Cellulitis right leg. At this time, he does have some purulence. We removed the wound VAC. I expressed a significant amount of purulence. We will get a culture. We will do wet-to-dry dressings, and hold off on wound VAC. He may need further debridement, but he is on Eliquis so we want to see how the wound does with just conservative management. If it does not seem to improve, I will have one of point partners open it up further. 2. Congestive heart failure. At this time, defer to the hospitalist. 3. Multiple medical comorbidities. We will defer to the hospitalist. cc: Srinath Polk MD
[2019-08-21 06:46] LABS: BASO# 0.02 X1000 (0.0-0.2); BASO% 0.2 % (0.0-0.8); EOS# 0.82 X1000 (0.0-0.7); EOS% 9.1 % (0.0-10.0); HEMATOCRIT 32.5 % (42.0-52.0); HEMOGLOBIN 7.4 g/dL (14.0-18.0); IMM GRAN# 0.13 X1000 (0.0-0.04); IMM GRAN% 1.4 % (0.0-0.5); LYMPH# 1.22 X1000 (1.2-3.4); LYMPH% 13.5 % (20.5-51.1); MCH 21.4 PG (27-31); MCHC 22.8 g/dL (33-37); MCV 93.9 FL (81-99); MONO# 0.64 X1000 (0.11-0.59); MONO% 7.1 % (1.7-9.3); NEUT# 6.22 X1000 (1.4-6.5); NEUT% 68.7 % (42.2-75.2); PLT 131 X1000 (130-400); RBC 3.46 XMIL (4.7-6.1); RDW 13.9 % (11.5-14.5); WBC 9.05 X1000 (4.8-10.8)
[2019-08-21 07:05] LABS: AGAP 11; ALB/GLOB RATIO 1.1; ALBUMIN 3.2 g/dL (3.5-5.0); ALKALINE PHOSPHATASE 63 U/L (32-122); BUN 27 mg/dL (8-22); CALCIUM 8.6 mg/dL (8.8-10.2); CHLORIDE 96 mmol/L (98-107); COSMO 290; CREATININE 0.9 mg/dL (0.7-1.2); ESTIMATED GFR > 60; GLUCOSE 127 mg/dL (70-104); GOT 12 U/L (10-34); GPT 6 U/L (10-44); POTASSIUM 3.6 mmol/L (3.5-5.1); SODIUM 142 mmol/L (136-145); TCO2 35 mmol/L (25-35); TOTAL BILIRUBIN 0.45 mg/dL (0.20-1.00); TOTAL PROTEIN 6.2 g/dL (6.3-8.3)
[2019-08-21 07:15] LABS: EOS 7 % (1-10); LYMPHS 15 % (21-51); MONO 6 % (1-9); SEGS 72 % (42-75)
[2019-08-21] MEDS: DUONEB (A & A) INH SCH ×3 (07:41→15:38)
[2019-08-21] MEDS: ICAR-C PLUS PO SCH (10:17)
[2019-08-21] MEDS: VITAMIN D PO SCH (10:17)
[2019-08-21] MEDS: PROTONIX PO SCH (10:18)
[2019-08-21] MEDS: ZYVOX PO SCH ×2 (10:18→21:42)
[2019-08-21 15:02] LABS: HEMATOCRIT 34.5 % (42.0-52.0); HEMOGLOBIN 10.3 g/dL (14.0-18.0)
--- NOTE | 2019-08-21 18:16 | PROGRESS NOTE ---
DATE: 08/21/2019 INTERVAL HISTORY: Patient complaining of increased leg swelling. Pain well controlled. Also complains of breathing treatments making him jittery. No other complaints. No acute events overnight. REVIEW OF SYSTEMS: Twelve-point review of systems negative except as per interval history. LABS: WBC 9, initial hemoglobin 7.4 and repeat 10.3, initial hematocrit 32.5 and repeat 34.5, platelets 131,000. Sodium 142, potassium 3.6, BUN 27, creatinine 0.6, glucose 127. VITAL SIGNS: T-max 98.6 degrees, pulse 107, respirations 19, blood pressure 119/74, and O2 saturation 99% on 4 L by nasal cannula. PHYSICAL EXAMINATION: General: No acute distress. Morbidly obese. HEENT: Normocephalic, atraumatic. Moist mucous membranes. Cardiovascular: Regular rate and rhythm. No murmurs noted. Pulmonary: Clear to auscultation within limits of body habitus. Abdomen: Soft, nontender, nondistended. Bowel sounds positive. Extremities: Peripheral pulses barely palpable. Significant chronic venous stasis in bilateral lower extremities, as well as 2 to 3+ pitting edema wound on midshin bandaged. Surrounding area remains erythematous. Neurologic: Cranial nerves grossly intact. No focal deficits identified. Psychiatric: Normal mood and affect. Awake, alert, oriented x3. ASSESSMENT AND PLAN: 1. Cellulitis, infected wound in right lower extremity. Purulent drainage noted previously, currently bandaged. Surgery evaluated the patient. They plan on monitoring for now, but I think he may need further debridement. Eliquis was held this morning because of concern for drop in blood counts, which appears to have likely been artifactual, but we will go ahead and hold his Eliquis for today in case he needs surgery in the immediate future. Continue antibiotics with Zyvox and cefepime and monitor closely. 2. Bacteremia. The patient's blood culture is positive for gram-positive cocci. On cefepime and Zyvox as above, which should cover that. We will await speciation and see whether it is real or not, but given his wound it is certainly a possibility. If it ends up being Staphylococcus aureus, then he may need a VEGA as well, but we will see what it comes out as first. We will go ahead and repeat blood cultures to make sure that if it is felt real that his blood is clearing. 3. Lower extremity edema and chronic venous stasis. The patient states this is a chronic issue. States it is a little worse today since not having Lasix yesterday. He does have a pretty substantial edema, both pitting and nonpitting, so we will go ahead and start him back on some Lasix. 4. Hypertension, on Lasix and Toprol at home. Blood pressure only mildly elevated off of those here, restarting Lasix as above. We will also go ahead and get him back on his beta-john and see what he does on it. 5. Benign prostatic hypertrophy. Continue home tamsulosin. 6. Anemia. Initially had what appeared to be significant drop in hemoglobin this morning from 10.8 to 7.4, but on repeat hemoglobin was back up to 10.3. Suspect that the one this morning was in error. The patient denied any signs or symptoms of bleeding, and there is no clinically evident bleeding. We will continue to monitor and see what his blood counts look like in the morning. 7. History of atrial fibrillation. The patient is in regular rate and rhythm currently. Holding Eliquis currently, initially because of concerns for possible bleeding, but continue to hold for possible surgery. If it is determined surgery will not be necessary, we will restart Eliquis. Continue to monitor.
[2019-08-21] MEDS: FLOMAX PO SCH (21:42)
[2019-08-21] MEDS: LASIX PO SCH (21:52)
[2019-08-22 06:15] LABS: BASO# 0.02 X1000 (0.0-0.2); BASO% 0.3 % (0.0-0.8); EOS# 0.73 X1000 (0.0-0.7); EOS% 9.7 % (0.0-10.0); HEMATOCRIT 32.2 % (42.0-52.0); HEMOGLOBIN 9.6 g/dL (14.0-18.0); IMM GRAN# 0.02 X1000 (0.0-0.04); IMM GRAN% 0.3 % (0.0-0.5); LYMPH# 0.84 X1000 (1.2-3.4); LYMPH% 11.2 % (20.5-51.1); MCH 27.7 PG (27-31); MCHC 29.8 g/dL (33-37); MCV 92.8 FL (81-99); MONO# 0.62 X1000 (0.11-0.59); MONO% 8.3 % (1.7-9.3); MPV 8.8 FL (7.4-10.4); NEUT# 5.27 X1000 (1.4-6.5); NEUT% 70.2 % (42.2-75.2); PLT 165 X1000 (130-400); RBC 3.47 XMIL (4.7-6.1); RDW 13.6 % (11.5-14.5)
[2019-08-22] MEDS: MAXIPIME 2 GM/NS 2 GM/100 ML IVPB IV SCH ×2 (06:28→18:07)
[2019-08-22 06:31] LABS: AGAP 9; BUN 25 mg/dL (8-22); CALCIUM 8.7 mg/dL (8.8-10.2); CHLORIDE 93 mmol/L (98-107); COSMO 283; CREATININE 0.8 mg/dL (0.7-1.2); ESTIMATED GFR > 60; GLUCOSE 143 mg/dL (70-104); POTASSIUM 3.5 mmol/L (3.5-5.1); SODIUM 138 mmol/L (136-145); TCO2 36 mmol/L (25-35)
[2019-08-22] MEDS: PROTONIX PO SCH (09:21)
[2019-08-22] MEDS: ZYVOX PO SCH ×2 (09:21→22:38)
[2019-08-22] MEDS: VITAMIN D PO SCH (09:21)
[2019-08-22] MEDS: ICAR-C PLUS PO SCH (09:21)
[2019-08-22] MEDS: LASIX PO SCH ×2 (09:21→22:38)
--- NOTE | 2019-08-22 14:28 | PROGRESS NOTE ---
DATE: 08/22/2019 INTERVAL HISTORY: The patient's lower extremity edema improved on the left, about the same on the right. Remains afebrile. No other acute events. No new complaints. REVIEW OF SYSTEMS: A 12-point review of systems is negative, except as per interval history. LABORATORY DATA: Blood culture was previously positive for gram-positive cocci, now finalized as coagulase-negative staph, likely contaminant. Wound culture growing gram-negative rods. WBC 7.5, hemoglobin 9.6, hematocrit 32.2, platelets 165,000. Sodium 138, potassium 3.5, BUN 25, creatinine 0.8, glucose 143. OBJECTIVE: Vital Signs: T-max 99 degrees, pulse 108, respirations 22, blood pressure 141/83, O2 saturation 97% on 4 L by nasal cannula. General: No acute distress. Morbidly obese. HEENT: Normocephalic, atraumatic. Moist mucous membranes. Cardiovascular: Slightly tachycardic, but regular. No murmurs noted. Pulmonary: Clear to auscultation within the limits of body habitus. Abdomen: Soft, nontender, nondistended. Bowel sounds positive. Extremities: Peripheral pulses decreased, but present. Significant chronic venous stasis in bilateral lower extremities. There is 3+ pitting edema in the right leg; left leg previously 3+, now down to 2+. Wound on right midshin remains bandaged. Still some erythema of both lower legs, right greater than left. Neurologic: Cranial nerves grossly intact. No focal deficits identified. Psychiatric: Normal mood and affect. Awake, alert, and oriented x3. ASSESSMENT AND PLAN: 1. Cellulitis, infected wound in right lower extremity. Purulent drainage noted previously. Currently bandaged. Wound culture growing gram-negative chris. Surgery has evaluated the patient and is following. Plan on monitoring for now and hoping to avoid debridement if possible. Eliquis being held currently. Continue antibiotics, Zyvox and cefepime, and monitor. 2. Positive blood cultures. The patient's initial blood cultures were positive for gram-positive cocci, but now finalized as coagulase-negative staph. Likely contaminant. Repeat blood culture is negative thus far. 3. Chronic lower extremity edema and chronic venous stasis. Slightly worse initially after being off his Lasix. Left leg is significantly improved now with Lasix yesterday. Right leg is still significantly erythematous, likely related to his wound and infection. Patient already with lower extremity ultrasound on his last visit with this wound, which was negative, so we will not repeat that currently unless something changes about his exam. Continue Lasix as long as his kidney function tolerates. 4. Hypertension, on home Lasix and beta john. Monitor. 5. Benign prostatic hypertrophy. Continue home tamsulosin. 6. Anemia. One significantly low hemoglobin at 7.4, but the hemoglobin before and the repeat were in the 10s. Suspect one low reading was in error. No signs or symptoms of bleeding, and it is only slight downtrend this morning, so will continue to monitor. 7. History of atrial fibrillation. The patient is regular rate and rhythm currently. Holding Eliquis at the moment, initially because of concerns for bleeding, but continue to hold in case he ends up needing debridement. If blood counts remain stable and no surgery is necessary, will likely restart Eliquis. Continue to monitor.
[2019-08-22] MEDS: DUONEB (A & A) INH PRN ×2 (15:44→23:17)
[2019-08-22] MEDS: LANTISEPTIC CREAM TOP SCH ×2 (18:06→22:38)
--- NOTE | 2019-08-22 19:18 | GENERAL SURGERY PROGRESS NOTE ---
DATE: 08/22/2019 SUBJECTIVE: Feels about the same. Not having a lot of pain in his leg. No fevers. OBJECTIVE: Vital Signs: Heart rate has been in the 90s to low 100s. Blood pressure 121/82, oxygen saturation 100% on 4 L. General: He is alert, in no acute distress. He is obese. Cardiovascular: Normal rate. Abdomen: Soft. Extremities: His right medial-proximal calf, there is a sinus draining murky type fluid. There is no cellulitis. There is no necrosis. No crepitus. He has a large anterior scar from multiple prior knee replaced. LABORATORY: White count 7, hematocrit 32. Creatinine 0.8. Glucose is up to 143. ASSESSMENT AND PLAN: This is a 79-year-old gentleman with a chronic draining sinus of his right calf. My concern is that this could be a draining sinus from a chronic prosthetic infection and would need further imaging to further evaluate this. I would recommend engaging Orthopedic Surgery as he is known to them previously, to evaluate for possible infected knee prosthetic. Otherwise, I think he has adequate drainage and does not need any further surgical debridement and drainage. We will continue local wound care and antibiotics. Will follow along. cc: Glenys Hamilton MD
[2019-08-22] MEDS: FLOMAX PO SCH (22:38)
[2019-08-23] MEDS: MAXIPIME 2 GM/NS 2 GM/100 ML IVPB IV SCH ×2 (05:38→17:37)
[2019-08-23 06:27] LABS: BASO# 0.03 X1000 (0.0-0.2); BASO% 0.4 % (0.0-0.8); EOS# 0.67 X1000 (0.0-0.7); EOS% 9.3 % (0.0-10.0); HEMATOCRIT 35.4 % (42.0-52.0); HEMOGLOBIN 10.6 g/dL (14.0-18.0); IMM GRAN# 0.02 X1000 (0.0-0.04); IMM GRAN% 0.3 % (0.0-0.5); LYMPH# 0.87 X1000 (1.2-3.4); MCH 27.6 PG (27-31); MCHC 29.9 g/dL (33-37); MCV 92.2 FL (81-99); MONO# 0.49 X1000 (0.11-0.59); MONO% 6.8 % (1.7-9.3); NEUT# 5.15 X1000 (1.4-6.5); NEUT% 71.2 % (42.2-75.2); PLT 184 X1000 (130-400); RBC 3.84 XMIL (4.7-6.1); RDW 13.3 % (11.5-14.5); WBC 7.23 X1000 (4.8-10.8)
[2019-08-23 06:55] LABS: AGAP 9; BUN 21 mg/dL (8-22); CALCIUM 8.7 mg/dL (8.8-10.2); CHLORIDE 94 mmol/L (98-107); COSMO 285; CREATININE 0.8 mg/dL (0.7-1.2); ESTIMATED GFR > 60; GLUCOSE 140 mg/dL (70-104); POTASSIUM 3.5 mmol/L (3.5-5.1); SODIUM 140 mmol/L (136-145); TCO2 37 mmol/L (25-35)
[2019-08-23] MEDS: PROTONIX PO SCH (09:05)
[2019-08-23] MEDS: LASIX PO SCH ×2 (09:05→20:17)
[2019-08-23] MEDS: VITAMIN D PO SCH (09:05)
[2019-08-23] MEDS: TOPROL XL PO SCH (09:05)
[2019-08-23] MEDS: ZYVOX PO SCH ×2 (09:05→20:17)
[2019-08-23] MEDS: ICAR-C PLUS PO SCH (09:05)
[2019-08-23] MEDS: LANTISEPTIC CREAM TOP SCH (10:15)
--- NOTE | 2019-08-23 12:02 | GENERAL SURGERY PROGRESS NOTE ---
DATE: 08/23/2019 SUBJECTIVE: He is still having some drainage. Dressing being changed. No fevers. OBJECTIVE: Vital Signs: Pulse is in the low 100's. Blood pressure 123/74. General: He is alert. Cardiovascular: Low-grade sinus tachycardia. Extremities: Chronic edema right lower extremity. Dressings is in place and clean with a right pretibial location. LABORATORY: White count 7, hematocrit 35, and creatinine 0.8. ASSESSMENT AND PLAN: A 79-year-old gentleman with drainage from the right pretibial wound. This is in the setting of a right knee arthroplasty. We will get x-rays now on multiple views, and would recommend consulting orthopedic surgery to evaluate for possible infected prosthetic given the appearance of the sinus. We will follow along, but from a general surgery perspective I would just recommend antibiotics. cc: Glenys Hamilton MD
--- NOTE | 2019-08-23 12:58 | Diag Imaging Result Doc PS360 ---
EXAM: KNEE 3 VIEWS RIGHT HISTORY: infection TECHNIQUE: Three views COMPARISON: 12/19/2015 FINDINGS: There has been prosthetic replacement of the knee. There is collapse into the proximal tibia. There is deformity to the patella. The appearance of the knee is fairly similar to that of the prior exam. IMPRESSION: No significant interval change Electronically signed by Jaswinder Freitas 08/23/2019 12:56 PM
[2019-08-23] MEDS: DUONEB (A & A) INH PRN (16:06)
--- NOTE | 2019-08-23 17:27 | PROGRESS NOTE ---
DATE: 08/23/2019 SUBJECTIVE: Patient is resting in bed. OBJECTIVE: Vital Signs: Temperature 98.3 degrees, pulse 87, respiratory rate is 20, blood pressure 132/80, oxygen saturation is 100%. HEENT: Atraumatic and normocephalic. Cardiovascular System: S1, S2. Respiratory System: Has evidence of good air entry bilaterally. Abdomen: Obese, nontender. Extremities: The patient does have erythematous changes with exfoliative changes in both lower extremities. Wound on the right leg is currently dressed. Dressing is soaked. Central Nervous System: No obvious focal deficits noted. Laboratory Data: WBC is 7.23, hematocrit 35.4, with a platelet count of 184,000. Sodium is 140, potassium 3.5, chloride is 94, bicarb is 37, BUN is 21, creatinine 0.8, glucose is 140. ASSESSMENT AND PLAN: 1. Cellulitis involving both lower extremities/right lower extremity wound. Follow up on wound cultures. Continue antibiotics, local wound care. 2. Chronic lower extremity edema as well as venous stasis. Maintain patient on diuretics. 3. Hypertension. Optimize blood pressure control. 4. Benign prostatic hypertrophy. Continue tamsulosin. 5. Anemia. Follow up on hemoglobin and hematocrit. Transfuse packed red blood cells as needed. 6. History of atrial fibrillation. Continue rate controlling agent. Apixaban is currently on hold because of concern for bleeding. cc: Donato Lopez MD MTDD
[2019-08-23] MEDS: FLOMAX PO SCH (20:16)
[2019-08-24] MEDS: MAXIPIME 2 GM/NS 2 GM/100 ML IVPB IV SCH (05:15)
[2019-08-24 06:42] LABS: BASO# 0.03 X1000 (0.0-0.2); BASO% 0.4 % (0.0-0.8); EOS# 0.89 X1000 (0.0-0.7); EOS% 11.1 % (0.0-10.0); HEMATOCRIT 34.9 % (42.0-52.0); HEMOGLOBIN 10.5 g/dL (14.0-18.0); IMM GRAN# 0.05 X1000 (0.0-0.04); IMM GRAN% 0.6 % (0.0-0.5); LYMPH# 1.15 X1000 (1.2-3.4); LYMPH% 14.3 % (20.5-51.1); MCH 27.8 PG (27-31); MCHC 30.1 g/dL (33-37); MCV 92.3 FL (81-99); MONO# 0.62 X1000 (0.11-0.59); MONO% 7.7 % (1.7-9.3); MPV 8.7 FL (7.4-10.4); NEUT# 5.28 X1000 (1.4-6.5); NEUT% 65.9 % (42.2-75.2); PLT 194 X1000 (130-400); RBC 3.78 XMIL (4.7-6.1); RDW 13.4 % (11.5-14.5); WBC 8.02 X1000 (4.8-10.8)
[2019-08-24 06:57] LABS: AGAP 10; BUN 18 mg/dL (8-22); CALCIUM 9.1 mg/dL (8.8-10.2); CHLORIDE 93 mmol/L (98-107); COSMO 283; CREATININE 0.8 mg/dL (0.7-1.2); ESTIMATED GFR > 60; GLUCOSE 137 mg/dL (70-104); POTASSIUM 3.9 mmol/L (3.5-5.1); SODIUM 140 mmol/L (136-145); TCO2 37 mmol/L (25-35)
[2019-08-24] MEDS: ZYVOX PO SCH (09:09)
[2019-08-24] MEDS: VITAMIN D PO SCH (09:09)
[2019-08-24] MEDS: LASIX PO SCH ×2 (09:09→20:15)
[2019-08-24] MEDS: PROTONIX PO SCH (09:09)
[2019-08-24] MEDS: TOPROL XL PO SCH (09:09)
[2019-08-24] MEDS: ICAR-C PLUS PO SCH (09:09)
[2019-08-24] MEDS: LANTISEPTIC CREAM TOP SCH ×2 (09:21→20:15)
[2019-08-24] MEDS: ZOSYN 3.375 GM in NS 50 ML IV SCH ×2 (12:10→17:40)
--- NOTE | 2019-08-24 12:10 | PROGRESS NOTE ---
DATE: 08/24/2019 SUBJECTIVE: The patient is resting comfortably on bed. No new complaints today. OBJECTIVE: Vital Signs: Temperature 97.9 degrees, pulse 74, respiratory rate 18, blood pressure 124/73, oxygen saturation is 100%. HEENT: Atraumatic, normocephalic. Cardiovascular: S1, S2. Respiratory: Has evidence of good air entry bilaterally. Abdomen: Soft, nontender. No masses felt. Obese. Extremities: Wound site, right leg dressed. Inflammatory change involving both lower extremities seems to be improving. The patient does have edema in both lower extremities. Central Nervous System: No obvious focal deficits noted. LABORATORY DATA: WBC is 8.02, hematocrit is 34.9, with a platelet count of 94,000. Sodium is 140, potassium is 3.9, chloride is 93, bicarb 27, BUN is 18, creatinine 0.8. Culture from the right leg wound is positive for Proteus mirabilis, which is vasquez sensitive. ASSESSMENT AND PLAN: 1. Cellulitis involving both lower extremities, as well as right lower extremity wound. Continue antibiotics as well as local wound care. Consult with Orthopedics. Obtain MRI of the right leg to rule out osteomyelitis of that extremity. 2. Chronic lower extremity edema as well as venous stasis. Continue diuretics. 3. Hypertension. Optimize blood pressure control. 4. Benign prostatic hypertrophy. Continue tamsulosin. 5. Anemia. Follow up on hemoglobin and hematocrit. Transfuse packed red blood cells as needed. 6. History of atrial fibrillation. Continue rate-controlling agent. Apixaban is on hold because of concern for bleeding. 7. Morbid obesity. Aware. 8. Chronic obstructive pulmonary disease. Nebulized bronchodilators as needed. 9. Disposition. The patient is from a correction facility, and can be discharged back once cleared by Surgery as well as the Orthopedic teams. cc: Donato Lopez MD
--- NOTE | 2019-08-24 14:37 | Diag Imaging Result Doc PS360 ---
EXAM: MRI LOW EXTREMITY W/O CON-RIGHT INDICATION: r/o osteomyelitis right leg TECHNIQUE: COMPARISON: None. FINDINGS: Note that there is a longstem right knee arthroplasty hardware in place. This is causing extensive metallic susceptibility artifact is significantly limits the sensitivity and specificity for detecting osteomyelitis in the tibia. However, given this limitation, there is no definite marrow signal abnormality associated with the tibia to indicate osteomyelitis. The fibula exhibits normal signal with no sign of osteomyelitis. There is soft tissue edema around the lower leg consistent with cellulitis. No significant joint effusion is appreciated. IMPRESSION: 1.Significantly limited study due to metallic susceptibility artifact from arthroplasty hardware. However, given this limitation, no definite osteomyelitis is appreciated. Three phase nuclear medicine bone scan or tagged white blood cell scan may better assess for osteomyelitis given the metallic artifact. 2.Soft tissue edema around the lower leg, which could be compatible with cellulitis. Electronically signed by Pranay Curiel 08/24/2019 2:35 PM
--- NOTE | 2019-08-24 16:28 | ORTHOPAEDICS CONSULTATION ---
DATE: 08/24/2019 REASON FOR CONSULTATION: Right total knee infection. HISTORY OF PRESENT ILLNESS: This is a 79-year-old gentleman with a past medical history of atrial fibrillation, BPH, COPD, hypertension, and chronic right knee wound, who presented to the [facility] Emergency room with progressive shortness of breath over the last 2 days. He was seen in the emergency room for the shortness of breath, as well as coughing and chest pain. He denied fever or chills. In the ER he was noted to have a wound VAC over the right lower extremity. Apparently, he has had a wound there for quite some time. The leg was very swollen and erythematous. He denied any pain to the leg. His white count in the ER was 20,000. General surgery was consulted initially for the right lower extremity. On x-ray, he had a right total knee. He has not ambulated in over a year. Orthopedics has been consulted to evaluate the right lower extremity. PAST MEDICAL HISTORY: 1. Prostate cancer status post radiation 2008. 2. Primary essential hypertension. 3. Iron deficiency anemia. 4. Morbid obesity. 5. Bilateral peripheral vascular disease. 6. Atrial fibrillation on anticoagulation. 7. Chronic right lower extremity wound with a wound VAC. 8. Previous Methicillin resistant staphylococcus aureus 9. Infection right knee. PAST SURGICAL HISTORY: 1. Left hip repair 2013. 2. Right knee replacement 2009. 3. Right knee revision 2011. 4. Left shoulder surgery. 5. Left elbow surgery. SOCIAL HISTORY: He is a resident of a prison care facility. He denies tobacco, alcohol, or illicit drug use. FAMILY HISTORY: Noncontributory. ALLERGIES: 1. Ibuprofen. 2. Vancomycin. HOME MEDICATIONS: Lasix 40 mg p.o. daily, Eliquis 2.5 mg p.o. b.i.d., vitamin D3 2000 units p.o. daily, iron 1 p.o. daily, metoprolol 25 mg p.o. daily, Protonix 40 mg p.o. daily, Flomax 0.4 mg p.o. at bedtime, albuterol inhaler 4 times a day, albuterol inhaler as needed. REVIEW OF SYSTEMS: A 10 point review of system was completed and negative except for what is mentioned above in the HPI. Again, he denied any fever, chills, or significant pain to the right knee. PHYSICAL EXAMINATION: Vital Signs: 97.9, pulse 74, respirations 18, blood pressure 124/73. He is 100% on 3 L nasal cannula. General: This is an obese 79-year-old male in no acute distress. Neurological: He is alert and oriented x3. He appears to be a good historian. No focal deficits. HEENT: Head is atraumatic, normocephalic. Pupils equal, round, reactive to light. Cardiovascular: Regular rate and rhythm. He does have significant bilateral lower extremity edema. Pulmonary: Breathing is currently even and nonlabored with equal chest expansion. GI: Abdomen is obese, but is nontender. Extremities: Right lower extremity exam: He has significant swelling to the lower extremity throughout. The knee is very large. He does have a little bit of effusion, but it is not bad. He does have a small wound over the proximal tibia. It is small, but does appear to track deep. There is a significant amount of purulent drainage. The leg has some discoloration but overall is not very erythematous. He has a weak pedal pulse. I do not see any other ulcerations. LABORATORY DATA: His white count today is 8.02, down from 20.12, hemoglobin and hematocrit 10.5 and 34.9, platelet count is 194,000. His BUN and creatinine is 18, 0.8. His wound culture grew out Proteus mirabilis that was sensitive to most antibiotics. IMAGING: We are currently waiting on an MRI. ASSESSMENT: Right lower extremity cellulitis with a right total knee. PLAN: Because of the chronic nature of the wound, I do believe that the implant itself is infected. Mr. Vizcaino has already have had a revised knee. He said he has really had trouble with this knee since 2009. This surgery was originally done in [place], [place] by Dr. Gale. The patient told me that he was supposed to have an appointment with Dr. Farrell at [facility] last month. I did call their office and they did not have a record of that. I am not sure what happened with that. At this point, the best thing for Mr. Vizcaino would be to see an orthopedic surgeon that specializes in revision total knees. We do feel that the whole implant needs to be removed, washed out and either revised or an alternative surgical option. We suggest he continues on IV antibiotics until he can follow up with an orthopedic surgeon who specializes in this. This is a chronic wound and the patient does not appear to be septic. So, we would be okay with him being discharged back to the rehab with follow-up orders to see a specialist in [place]. Dr. Brush is going to review the MRI and follow up with him in the morning if he is still here. If we can be of any other service, please let us know. Thank you for the consultation. Dictated by RIZWANA Durbin for Juan Francisco Brush MD cc: RIZWANA Durbin MD [facility]
[2019-08-24] MEDS: FLOMAX PO SCH (20:15)
[2019-08-25] MEDS: ZOSYN 3.375 GM in NS 50 ML IV SCH ×2 (00:30→05:07)
[2019-08-25] MEDS: LANTISEPTIC CREAM TOP SCH ×4 (03:14→22:45)
--- NOTE | 2019-08-25 08:12 | ORTHOPAEDICS PROGRESS NOTE ---
DATE: 08/25/2019 SUBJECTIVE: Mr. Vizcaino is sitting up in bed this morning. Overall, he is feeling okay. Not really complaining of a lot of pain. OBJECTIVE: Right lower extremity exam: He has a small what looks like a draining sinus on the medial proximal leg, draining serous fluid. The leg is fairly swollen overall, and so was the left leg. No other open areas seen. I do not see any surrounding erythema. ASSESSMENT: Right infected total knee prosthesis. PLAN: I discussed with Mr. Vizcaino about his right knee. He seems to have had a knee replacement back in 2009 and then a revision in 2011. He tells me he has been diagnosed with this knee infected since 2011 and has been on and off antibiotics when it does flare up. He has not ambulated in over a year. He says that is not necessarily all related to this right leg, but his overall health has precluded him from ambulating. At this time Mr. Vizcaino does not appear septic. His vitals are all good. His white count has come back down to within the normal range. 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 Options for treating that are not great. He really would need an explant of all orthopedic hardware, antibiotic spacer to try and clear the infection, and then either a knee fusion or revision. This would best be done by a joint surgeon, who specializes in revision total knees versus fusions. So, from an orthopedic standpoint I am okay with Mr. Vizcaino returning to his [facility] facility on antibiotics. He will need to follow up with one of the joint surgeons in [place] at [facility], either Dr. Farrell or Dr. Tyrell Casiano. I did discuss with him that if he does become septic any time along the way, it could end in above the knee amputation. We appreciate the consult. cc: Juan Francisco Brush MD
[2019-08-25] MEDS: DUONEB (A & A) INH PRN (09:01)
--- NOTE | 2019-08-25 12:01 | INFECTIOUS DISEASE CONSULT REP ---
DATE: 08/25/2019 CONCLUSION: It should be noted that the patient was unable to provide me with a history, and the information I did get came from the computer. The patient has an infected right lower extremity. He has a draining sinus, and when I stuck the culturette in to get a culture, it went down to bone; therefore, by definition the patient has osteomyelitis of the right leg. Culture from the leg grew Proteus, and I have sent down another culture today. The patient has 1 out of 4 blood cultures that grew coagulase-negative Staphylococcus. This is a contaminant. RECOMMENDATIONS: I have switched the patient to Rocephin. I would suggest treating with Rocephin intravenously for 6 weeks and then following that with Keflex in a dose of 500 mg p.o. every 12 hours, which hopefully will prevent the patient's infection from becoming active. Some of the side effects of both Keflex and Rocephin, including rash and diarrhea, have been explained to the patient. He agreed with treatment. The patient had 1 out of 4 blood cultures growing coagulase- negative Staphylococcus. It is a contaminant and does not require antibiotic treatment. DISCUSSION: As mentioned above, I could not get a history from the patient. He was admitted to the hospital with shortness of breath, which appears to be due to congestive heart failure. He has a draining sinus from the right leg. As mentioned above, when I put in the culturette to get a culture, it did appear to go down to bone. The patient's laboratory studies show a CBC with a white count of 8020, hemoglobin 10.5, and platelet count 194,000. Creatinine is 0.8 and GFR is greater than 60. Liver function studies are normal. X-ray of the right leg and an MRI of the right leg did not show any definite osteomyelitis. Chest x-ray showed congestive heart failure. One out of four blood cultures grew a coagulase-negative Staphylococcus. This is a contaminant and does not require treatment. PAST MEDICAL HISTORY: 1. Positive for prostate cancer, status post radiation treatment. 2. Enlarged prostate. 3. Hypertension. 4. Iron deficiency anemia. 5. Morbid obesity. 6. Chronic bilateral lower extremity edema. 7. Atrial fibrillation. 8. Chronic right lower extremity ulceration. PAST SURGICAL HISTORY: Positive for left hip repair, right knee replacement, left shoulder surgery, and left elbow surgery. SOCIAL HISTORY: The patient is a resident in a fci. He does not smoke cigarettes, drink alcoholic beverages, or use illicit drugs. FAMILY HISTORY: Positive for hypertension, heart disease, and kidney disease. ALLERGIES: The patient is allergic to ibuprofen and vancomycin. HOME MEDICATIONS: The home medications include albuterol inhaler, Eliquis, Lasix, Toprol, Protonix, and Flomax. PHYSICAL EXAMINATION: Vital Signs: Temperature is 98.1 degrees, pulse 88, respirations 20, blood pressure 131/83. The patient weighs 332 pounds. General: This is a morbidly obese, elderly male. He is in no acute distress. Head/Eyes/Ears/Nose/Throat: He can hear my spoken words and see near objects. He does not have any white patches on his tongue. Neck: No meningismus. Lungs: Clear to auscultation. Cardiovascular: Heart rate at times appeared to be regular and other times it appeared to be irregular. Abdomen: Soft and not tender. Extremities: The patient had bilateral leg edema. There was a draining fistula in the right leg. Neurologic: The patient is alert. He can move his extremities. There is no tremor. His memory regarding his medical history is very poor. Integument: No rash noted. Thank you for the consult. cc: Juan Siegel MD
[2019-08-25] MEDS: LASIX PO SCH ×2 (12:56→20:43)
[2019-08-25] MEDS: PROTONIX PO SCH (12:56)
[2019-08-25] MEDS: ICAR-C PLUS PO SCH (12:56)
[2019-08-25] MEDS: TOPROL XL PO SCH (12:56)
[2019-08-25] MEDS: VITAMIN D PO SCH (12:56)
[2019-08-25] MEDS: ROCEPHIN 2 GM in NS 50 ML IV SCH (13:02)
--- NOTE | 2019-08-25 15:09 | Diag Imaging Result Doc PS360 ---
EXAM: 3 PHASE BONE SCAN 08/25/2019 HISTORY: Right leg osteomyelitis TECHNIQUE: Three phase bone scan over the knees and lower legs. 23.2 mCi of technetium 99m MDP. COMMENT: There is generally faster flow activity to the right leg than the left although there is somewhat focal hyperemia seen in some of the earlier images in the left lower leg anterolaterally. There is photopenia from a total knee arthroplasty on the right. Specifically, regarding the area of lysis in the medial tibial plateau adjacent to the prosthesis seen on the plain radiograph of 08/23/2019, there is no evidence of increased flow activity and only slightly increased blood pool activity. There is no particular focal and intense uptake in this area on the static images at 3 1/2 hours. IMPRESSION: No conclusive evidence of osteomyelitis in the right tibia. Electronically signed by Geovanni Medina 08/25/2019 3:07 PM
--- NOTE | 2019-08-25 18:26 | PROGRESS NOTE ---
DATE: 08/25/2019 INTERVAL HISTORY: Pain reasonably well controlled. Afebrile. No new complaints. REVIEW OF SYSTEMS: Twelve-point review of systems negative except as per interval history. LABS: WBC 8.0, hemoglobin 10.5, hematocrit 34.9, platelets 194. Sodium 140, potassium 3.9, BUN 18, creatinine 0.8, glucose 137. VITALS: T-max 98.8, pulse 62, respirations 20, blood pressure 124/58, O2 saturation 100% on 4 L by nasal cannula. PHYSICAL EXAMINATION: General: No acute distress. Vitals: As above. HEENT: Normocephalic, atraumatic. Moist mucous membranes. Neck: No cervical adenopathy. Cardiovascular: Regular rate and rhythm. No murmurs noted. Pulmonary: Clear to auscultation within the limits imposed by body habitus. Extremities: Peripheral pulses decreased but present. Chronic venous stasis changes, approximately stable. There is 1 to 2+ pitting edema bilaterally, still a little worse in the right leg. Right leg wound remains bandaged. Neurologic: Cranial nerves grossly intact. No focal deficits. Psychiatric: Normal mood and affect. Awake, alert, oriented x3. ASSESSMENT/PLAN: 1. Cellulitis, infected wound in right lower extremity, possible infected orthopedic hardware, possible osteomyelitis. The imaging has not confirmed osteomyelitis, but Orthopaedics and Infectious Disease suspect he has a chronically infected right knee prosthesis. They suggest he will need removal of all the hardware, likely with antibiotic spacer for a period followed by a second procedure for either fusion or further hardware down the road. Though they recommend that this be done by either Dr. Farrell or Dr. Tyrell Casiano at [facility] in [place], it appears it is going to be quite awhile before he has a definitive procedure. I asked Infectious Disease to weigh in on antibiotic choice and duration. They have transitioned him to Rocephin for 6 weeks followed by Keflex 500 b.i.d. more or less indefinitely until he has definitive control of his source of infection. The wound remains bandaged. The previously noted cellulitis is largely resolved. 2. Likely chronic diastolic congestive heart failure, chronic lower extremity edema. Continue Lasix and monitor. 3. Paroxysmal atrial fibrillation. Continue home Toprol. Continue home Eliquis. 4. Benign prostatic hypertrophy. Continue home tamsulosin. 5. Anemia. Blood count stable. Monitor. 6. Morbid obesity. Patient has been counseled on diet and weight loss. 7. Chronic obstructive pulmonary disease. No sign of exacerbation currently. 8. Disposition: Antibiotics changed this afternoon by Infectious Disease to Rocephin for 6 weeks. Essentially stable for discharge back to rehab once those have been arranged. Suspect it will be Wednesday before they can take him, though. We will see what Case Management says.
[2019-08-25] MEDS: ELIQUIS PO SCH (20:06)
[2019-08-25] MEDS: FLOMAX PO SCH (20:42)
[2019-08-26] MEDS: ELIQUIS PO SCH ×2 (09:23→20:32)
[2019-08-26] MEDS: ICAR-C PLUS PO SCH (09:23)
[2019-08-26] MEDS: TOPROL XL PO SCH (09:23)
[2019-08-26] MEDS: LASIX PO SCH ×2 (09:24→20:32)
[2019-08-26] MEDS: ROCEPHIN 2 GM in NS 50 ML IV SCH (09:24)
[2019-08-26] MEDS: PROTONIX PO SCH (09:25)
[2019-08-26] MEDS: VITAMIN D PO SCH (09:25)
[2019-08-26] MEDS: LANTISEPTIC CREAM TOP SCH ×3 (09:26→23:00)
--- NOTE | 2019-08-26 17:13 | PROGRESS NOTE ---
DATE: 08/26/2019 SUBJECTIVE: Patient is lying in bed. He is complaining of right lower extremity discomfort, but his pain seems to be better controlled. OBJECTIVE: Vital Signs: Temperature 98.1 degrees, pulse 66, respiratory rate 18, blood pressure 166/68, oxygen saturation 100% on 4 L of nasal cannula. HEENT: Head normocephalic, no trauma. PERRLA. Neck: Supple. No JVD. No masses. Central trachea. Chest: Clear to auscultation. Decreased breath sounds globally. Abdomen: Soft, protuberant, nontender, nondistended. No hepatosplenomegaly. Extremities: Chronic venous stasis. Lower extremity edema 2+ bilaterally with erythema bilaterally, but as per the patient, it is better. He has a right knee/upper part of the leg wound that is covered with a dressing. I do not see any signs or secretion. Neurological: The patient is awake and alert. He is oriented x3. No focal deficits. LABORATORY: No lab work done today. Blood sugar 116. ASSESSMENT AND PLAN: 1. Cellulitis, infected wound in the right lower extremity, possibly infected orthopedic hardware, possible osteomyelitis. Orthopedic Surgery and Infectious Disease Department following this patient closely, and apparently he has a chronically infected right knee prosthesis. They suggested that this has to be removed and likely put in an antibiotic spacer, followed by a second procedure for either fusion or new hardware. They have recommended that this has to be done by Dr. Farrell or Dr. [facility] [place]. They will need to evaluate this patient and decide his further treatment. Infectious Disease Department on board. He has been placed on Rocephin, which is going to be at least for 6 weeks, and then followed by Keflex twice a day indefinitely. The cellulitis looks better. 2. Likely chronic diastolic heart failure with chronic lower extremity edema. Continue with Lasix and monitor. It seems to be getting better though. 3. Paroxysmal atrial fibrillation. Continue with Toprol and Eliquis. 4. Benign prostatic hypertrophy. Continue with tamsulosin. 5. Anemia. Continue with same management. 6. Morbid obesity. This patient has been advised and counseled about weight loss. 7. Chronic obstructive pulmonary disease. No signs of exacerbation. Continue with antibiotics. Infectious Disease Department on board. I believe this patient is ready to go to rehab, likely will be on Wednesday. We will discuss with Case Management that day. cc: Phan Hurtado MD
[2019-08-26] MEDS: FLOMAX PO SCH (20:32)
[2019-08-27 06:50] LABS: BASO# 0.02 X1000 (0.0-0.2); BASO% 0.3 % (0.0-0.8); EOS# 0.76 X1000 (0.0-0.7); HEMATOCRIT 36.1 % (42.0-52.0); HEMOGLOBIN 10.7 g/dL (14.0-18.0); IMM GRAN# 0.04 X1000 (0.0-0.04); IMM GRAN% 0.5 % (0.0-0.5); LYMPH# 1.43 X1000 (1.2-3.4); LYMPH% 18.8 % (20.5-51.1); MCH 27.6 PG (27-31); MCHC 29.6 g/dL (33-37); MCV 93.3 FL (81-99); MONO% 7.9 % (1.7-9.3); MPV 8.3 FL (7.4-10.4); NEUT# 4.74 X1000 (1.4-6.5); NEUT% 62.5 % (42.2-75.2); PLT 166 X1000 (130-400); RBC 3.87 XMIL (4.7-6.1); RDW 13.3 % (11.5-14.5); WBC 7.59 X1000 (4.8-10.8)
[2019-08-27 07:19] LABS: ESTIMATED GFR > 60
[2019-08-27 07:27] LABS: AGAP 7; BUN 19 mg/dL (8-22); CHLORIDE 92 mmol/L (98-107); COSMO 285; CREATININE 0.7 mg/dL (0.7-1.2); GLUCOSE 126 mg/dL (70-104); POTASSIUM 3.9 mmol/L (3.5-5.1); SODIUM 141 mmol/L (136-145); TCO2 42 mmol/L (25-35)
[2019-08-27] MEDS: PROTONIX PO SCH (08:13)
[2019-08-27] MEDS: LASIX PO SCH ×2 (08:13→21:31)
[2019-08-27] MEDS: TOPROL XL PO SCH (08:14)
[2019-08-27] MEDS: ICAR-C PLUS PO SCH (08:14)
[2019-08-27] MEDS: ELIQUIS PO SCH ×2 (08:14→21:31)
[2019-08-27] MEDS: LANTISEPTIC CREAM TOP SCH ×2 (08:15→10:16)
[2019-08-27] MEDS: VITAMIN D PO SCH (08:15)
[2019-08-27] MEDS: ROCEPHIN 2 GM in NS 50 ML IV SCH ×2 (08:17→09:08)
--- NOTE | 2019-08-27 15:57 | PROGRESS NOTE ---
DATE: 08/27/2019 SUBJECTIVE: This patient is lying in bed. He is still complaining of some right lower extremity discomfort, but the pain seems to be better controlled, his lower extremity still swollen. I do not see any signs of secretion. He has a new dressing. OBJECTIVE: Vital Signs: Temperature 98.7 degrees, pulse 63, respiratory rate 17, blood pressure 135/62, oxygen saturation 100% on 4 L of nasal cannula. HEENT: Head normocephalic, no trauma. PERRLA. Neck: Supple. No JVD. No masses. Central trachea. Chest: Clear to auscultation. Decreased breath sounds globally. Abdomen: Soft, protuberant, nontender, nondistended, no hepatosplenomegaly. Extremities: Chronic venous stasis. Lower extremity edema 2+ bilaterally with erythema bilaterally as well, but as per the patient, it is better. He has a right knee/upper part of the leg a wound that is covered with a dressing. I do not see any signs of secretion or bleeding. Neurological: He is alert. He is oriented. He is following commands. LABORATORY: WBC 7.5, hemoglobin 10.7, hematocrit 36.1, platelets 166,000, sodium 141, potassium 3.9, chloride 92, bicarbonate 42, BUN 19, creatinine 0.7, glucose 126, calcium 9. ASSESSMENT AND PLAN: 1. Cellulitis/infected wound in the right lower extremity/possible infected orthopedic hardware, possible osteomyelitis, Orthopedic Surgery and Infectious Disease Department following this patient closely, apparently he has a chronic infected right knee prosthesis. They suggested that this has to be removed and likely put in an antibiotic spacer, followed by a second procedure for either fusion or new hardware. They have recommended that this has to be done by Dr. Farrell or Dr. Tyrell Casiano [facility] [place]. They will evaluate this patient and decide further treatment. Infectious Disease Department on board. He is on Rocephin, which is going to be given at least for 6 weeks followed by Keflex twice a day indefinitely, cellulitis looks better. 2. Likely chronic diastolic heart failure with chronic lower extremity edema, continue with Lasix and monitor. He seems to be getting better. 3. Paroxysmal atrial fibrillation. Continue with Toprol and Eliquis. 4. Benign prostatic hypertrophy, continue with tamsulosin. 5. Anemia, continue with the same management. 6. Morbid obesity. This patient has been advised and counseled about weight loss. 7. Chronic obstructive pulmonary disease. No signs of exacerbation. 8. As far as I know, we are going to continue with antibiotics per Infectious Disease Department. I believe this patient will need to go to a rehab center. We will discuss with the family service caseworker tomorrow to see if this is an option for him. cc: Phan Hurtado MD
[2019-08-27] MEDS: FLOMAX PO SCH (21:31)
[2019-08-28] MEDS: LANTISEPTIC CREAM TOP SCH ×2 (06:21→09:55)
[2019-08-28 07:41] LABS: BASO# 0.02 X1000 (0.0-0.2); BASO% 0.3 % (0.0-0.8); EOS# 0.77 X1000 (0.0-0.7); EOS% 9.8 % (0.0-10.0); HEMOGLOBIN 10.6 g/dL (14.0-18.0); IMM GRAN# 0.03 X1000 (0.0-0.04); IMM GRAN% 0.4 % (0.0-0.5); LYMPH# 1.59 X1000 (1.2-3.4); LYMPH% 20.2 % (20.5-51.1); MCHC 30.3 g/dL (33-37); MCV 92.3 FL (81-99); MONO# 0.49 X1000 (0.11-0.59); MONO% 6.2 % (1.7-9.3); MPV 8.2 FL (7.4-10.4); NEUT# 4.97 X1000 (1.4-6.5); NEUT% 63.1 % (42.2-75.2); PLT 147 X1000 (130-400); RBC 3.79 XMIL (4.7-6.1); RDW 13.2 % (11.5-14.5); WBC 7.87 X1000 (4.8-10.8)
[2019-08-28 08:23] LABS: ESTIMATED GFR > 60
[2019-08-28 08:25] LABS: AGAP 9; BUN 21 mg/dL (8-22); CALCIUM 8.9 mg/dL (8.8-10.2); CHLORIDE 92 mmol/L (98-107); COSMO 291; CREATININE 0.7 mg/dL (0.7-1.2); GLUCOSE 126 mg/dL (70-104); POTASSIUM 4.1 mmol/L (3.5-5.1); SODIUM 144 mmol/L (136-145); TCO2 43 mmol/L (25-35)
[2019-08-28] MEDS: ICAR-C PLUS PO SCH (08:33)
[2019-08-28] MEDS: PROTONIX PO SCH (08:34)
[2019-08-28] MEDS: TOPROL XL PO SCH (08:34)
[2019-08-28] MEDS: LASIX PO SCH (08:34)
[2019-08-28] MEDS: ELIQUIS PO SCH (08:34)
[2019-08-28] MEDS: VITAMIN D PO SCH (08:34)
[2019-08-28] MEDS: ROCEPHIN 2 GM in NS 50 ML IV SCH ×2 (08:37→13:27)
[2019-08-28 09:59] LABS: INR 1.03; PROTIME 13.6 Seconds (11.0-16.0)
[2019-08-28 10:00] LABS: PTT 29.2 Seconds (22.3-41.8)
--- NOTE | 2019-08-28 10:11 | INFECTIOUS DISEASE PROGRESS NO ---
DATE: 08/28/2019 PRESENT ILLNESS: The patient has a right leg infected. I think the infection goes down to the bone and metal in his leg. The cultures of the wound on his leg have grown Proteus and oxacillin sensitive Staph aureus. MEDICATIONS: The patient currently is on Rocephin. PHYSICAL EXAMINATION: Vital Signs: Temperature is 98 degrees, pulse 72, respirations 16, blood pressure 164/87. General: This is an obese, elderly male. He is bedridden. He is in no acute condition. Head, eyes, ears, nose and throat: He can hear my spoken words and see near objects. He does not have any white coating of his tongue. Neck: No pain with movement. Lungs: Clear to auscultation. Cardiovascular: Heart rate is at times regular and then at other times it appeared irregular. Abdomen: Soft and nontender. Extremities: The patient has a draining fistula on the right leg, which I think extends to the bone and metal in his leg. Neurologic: The patient is alert. He talks in a coherent fashion. He can move his extremities. There is no tremor. LAB AND X-RAY: The 2 cultures I obtained from the patient's leg; one grew an oxacillin sensitive Staph aureus and the other one grew Proteus. The patient's CBC shows a white blood cell count of 7870, hemoglobin 10.6, and platelet count 147,000. Creatinine is 0.7. GFR is greater than 60. The patient's bone scan did not show osteomyelitis. ASSESSMENT AND PLAN: Patient has an infected right leg. Even though the bone scan did not show osteomyelitis, I believe the patient has it because, when I obtained my culture the probe went down to the bone and/or metal. The plan is to treat the patient with Rocephin 2 grams intravenous every 12 hours for 40 days, and follow that with Keflex 500 mg oral every 12 hours for an indefinite time. Some of the side effects of Rocephin and Keflex including rash and diarrhea have been explained to patient who agrees to treatment. COMORBIDITIES: The patient is morbidly obese. He is bedridden. He has chronic bilateral leg edema. cc: MD LAURIE Gunderson
[2019-08-28] MEDS ORDERED: NS 250 ML ONE (11:09)
--- NOTE | 2019-08-28 11:36 | DISCHARGE SUMMARY ---
ADMISSION DATE: 08/20/2019 DISCHARGE DATE: DISCHARGE DIAGNOSES: 1. Cellulitis/infected wound in the right lower extremity/possible infected orthopedic hardware/possible osteomyelitis right knee. 2. Chronic diastolic heart failure with chronic lower extremity edema. 3. Paroxysmal atrial fibrillation. 4. Benign prostatic hypertrophy. 5. Anemia. 6. Morbid obesity. 7. Chronic obstructive pulmonary disease with no exacerbation. 8. Iron deficiency anemia. 9. Hypertension. PROCEDURES PERFORMED: 1. Chest x-ray dated 08/20/2019. Impression: CHF. 2. Knee x-ray dated 08/23/2019. Impression: No significant interval change. 3. Lower extremity MRI dated 08/24/2019. Significant limited study due to metallic susceptibility artifact from arthroplasty hardware, however, given this limitation, no definite osteomyelitis is appreciated. CONSULTANTS: 1. Orthopedic Surgery Department. 2. Infectious Disease Department. Three-phase bone scan. Impression: No conclusive evidence of osteomyelitis in the right tibia. HOSPITAL COURSE: A 79-year-old male with a past medical history of atrial fibrillation, BPH, COPD on home O2 at 4 L, and hypertension who presented to the emergency department with progressive shortness of breath for the past 1 to 2 days also complaining of some chest pain that travels to his back. He was admitted on 08/20/2019. This is present on coughing and deep breath, and also can be produced by palpation. He denied any fever or chills. He does have an ulcer to his right lower extremity, and he does have a wound VAC in place. He state that his leg has been throbbing. It has been burning and tingling, and he feels that it is more red than normal. Chest x-ray revealed CHF. He is noted to have a white blood cell count of 20. This patient was evaluated by Surgery Department since this patient had a cellulitis of the right leg with some purulence. Surgery Department removed the wound VAC, and they expressed a significant amount of purulence. They started to do wet-to-dry dressing, and hold off on wound VAC. Orthopedic Surgery also evaluated this patient, and they have recommended to continue with the same treatment. They believe that he has a chronically infected right knee prosthesis. The option for treatment for that probably is going to be to remove the orthopedic hardware. Antibiotic spacer to try to clean the infection, and then they can fuse the knee or put a new hardware. From the orthopedic surgery standpoint, they recommended that he can go back to the nursing facility with antibiotics and wound care. He will need to follow up with the joint surgeons in [place] at [facility], with Dr. Farrell or Dr. Tyrell Casiano. This has been discussed with the patient, and actually they state that this could end in an above the knee amputation. Infectious Disease Department has been following this patient closely. We have a positive culture from the leg that showed Proteus mirabilis and Staphylococcus aureus that is sensitive to ceftriaxone. They have recommended to complete 6 weeks, and following with Keflex 500 mg p.o. q.12 hours indefinitely. The patient seems to understand, and he is willing to proceed. Today, we will try to put a PICC line and send this patient back to the longterm to continue treatment. Meat Inspector has been notified. If we are going to be able to get a PICC line today, he will be discharged today. Otherwise, he is going to be tomorrow. I will continue with the home medications. He is completely awake and alert. He is oriented, and he really wants to go back to his longterm. EXAMINATION: Vital Signs: Temperature 98 degrees, pulse 72, respiratory rate 16, blood pressure 164/87, and oxygen saturation 100% on 4 L of nasal cannula. HEENT: Head normocephalic. No trauma. PERRLA. Neck: Supple. No JVD. No masses. Central trachea. Chest: Clear to auscultation. Decreased breath sounds globally with some crepitus at the bases. Abdomen: Soft. Protuberant. Nontender. Nondistended. No hepatosplenomegaly. Extremities: Chronic venous stasis, lower extremity edema 2+ bilaterally with mild erythema bilaterally as well, but this is better. He has a right knee/upper part of the leg that is covered with a dressing. I do not see any signs of secretion or bleeding at this moment. Neurologic: This patient is awake and alert. He is oriented. No focal deficits. LABORATORY: WBC 7.8, hemoglobin 10.6, hematocrit 35, and platelets 147,000. Sodium 144, potassium 4.1, chloride 92 bicarbonate 43, BUN 21, creatinine 0.7, glucose 126,, and calcium 8.9. DISCHARGE MEDICATIONS: 1. DuoNeb 3 mL inhaler every 2 hours as needed for shortness of breath. 2. Albuterol sulfate 1 puff inhaler 4 times a day. 3. Eliquis 2.5 mg p.o. b.i.d. 4. Vitamin D3 2000 units p.o. daily. 5. Lasix 80 mg p.o. in the morning and 40 mg p.o. in the afternoon. 6. Multivitamin iron 100+ tablet 1 tablet p.o. daily. 7. Lanolin cream 1 application every 12 hours. 8. Milk of Magnesia 30 mL p.o. every morning as needed. 9. Toprol-XL 25 mg p.o. daily. 10. Protonix 40 mg p.o. every morning. 11. Tamsulosin 0.4 mg p.o. at bedtime. 12. Ceftriaxone 2 g IV q.12 hours for 40 days followed by Keflex 500 mg p.o. q.12 hours indefinitely. FOLLOWUP: 1. The patient will need to follow up with Dr. Farrell or Dr. Casiano on 09/26/2019 at 10:50 in the morning. 2. Also, follow up with the primary care doctor in 1 week. TIME SPENT: Time discharging this patient 40 minutes. cc: Phan Hurtado MD
[2019-08-28 15:10] VITALS: BP 157/52
== END 2019-08-28 16:16 | DRG 560 ==
LOC: SUPCPDRO → ED 04:17 → SUATTDRO 11:43 → 4N 11:43
PROVIDERS: ATTEND Internal Medicine